=== PATIENT | female | born 1960 | race Caucasian/White ===

== ENCOUNTER 2022-08-26 14:57 | Inpatient (IN) ==
[2022-08-26] MEDS ORDERED: KETOROLAC TROMETHAMINE 15 MG/ML VIAL IV STA (16:24)
[2022-08-26] MEDS ORDERED: SODIUM CHLORIDE 0.9% 500 ML IV STA (16:24)
[2022-08-26] MEDS ORDERED: MoRPHine SULFATE 4 MG/ML 1 ML CARP\\VIAL IV STA ×2 (16:24→18:52)
[2022-08-26] MEDS ORDERED: LIDOCAINE 5% 1 PATCH TD SCH (16:30)
--- NOTE | 2022-08-26 16:31 | Emergency Department Note ---
Impression & Plan Pathological fracture of rib of left side, Acute hyponatremia, Acute hypokalemia, Hypercalcemia, Lesion of left lung, Lesion of thoracic vertebra ED Provider Note CHIEF COMPLAINT: Back and left chest/flank pain HISTORY OF PRESENTING ILLNESS: This is a 61-year-old female who presents to the emergency department by private vehicle with her with complaint of middle back pain radiating to her left ribs and chest and down her abdomen and flank. Patient states she has been having issues with the back pain for about 2 years. She had surgery on her back last year in January to remove calcifications, which initially seem to help the problem, but then states the pain started to get worse in the fall. She was then referred to see pain management, she saw them on 08/15/2022 and received a nerve block which she states has not helped at all. She notes that the pain has been getting progressively worse over the past few days and today it was severe and unmanageable, she rates the pain 10/10. She takes Robaxin, gabapentin, and tramadol to manage her pain, and this has not been providing any relief. She notes that the pain radiates around the side of her left ribs into her chest and also down her abdomen and notes that her abdomen is tender. She has had associated nausea and is having difficulty eating because of this. Also notes significant weight loss over past few months. She has not vomited. She denies shortness of breath, palpitations, dizziness or syncope. She denies any numbness/tingling or weakness of the extremities. She denies any bowel or bladder dysfunction. REVIEW OF SYSTEMS: A complete 10 point review of systems was reviewed with the patient with pertinent positives and negatives as per history of present illness. All else were negative. PAST MEDICAL HISTORY: History of thoracic back surgery SOCIAL HISTORY: Lives at home with , she is a current everyday smoker ALLERGIES: No known allergies PHYSICAL EXAM: CONSTITUTIONAL: Believe pleasant and cooperative. Nontoxic appearing and in no acute distress, but appears uncomfortable from pain, lying on her right side in the stretcher. HEENT: Normocephalic, atraumatic. NECK: Supple, full active range of motion without discomfort. No midline tenderness to palpation of the cervical spine. RESPIRATORY: Scattered occasional expiratory wheezing, lungs otherwise clear with no crackles, rhonchi or stridor. Nonlabored breathing. Equal expansion bilaterally. CHEST WALL: Tenderness to palpation throughout the left anterior and lateral chest wall, no ecchymosis, erythema, swelling, rash, or palpable crepitus. CARDIOVASCULAR: Regular rate and rhythm with no murmurs, rubs or gallops. Normal peripheral perfusion. No edema. GASTROINTESTINAL: Tender to palpation throughout the left flank and abdomen, soft and nondistended. No rebound tenderness or guarding. Bowel sounds present in all quadrants. BACK: There is midline tenderness to palpation throughout the mid thoracic spine with left-sided paraspinous muscles throughout the thoracic region and lateral left-sided chest wall tenderness. No midline tenderness to palpation of the lumbar spine and no paraspinous muscle tenderness of the lumbar region. Negative straight leg raise bilaterally. MUSCULOSKELETAL: Full range of motion of all joints without discomfort. INTEGUMENTARY: No rash or other significant dermatologic conditions noted. NEUROLOGIC: Alert and oriented X 4 with normal affect. Normal sensation to light and sharp touch. Deep tendon reflexes 2+ in the lower extremities. Dorsalis pedis pulse 2+ bilaterally. Strength 5/5 and equal in the bilateral lower extremities, dorsiflexion and plantarflexion intact and equal bilaterally. ED COURSE AND MEDICAL DECISION MAKING: CC: Patient presenting with complaint of back and left flank pain DIFFERENTIAL DIAGNOSIS: Includes, but not limited to vertebral fracture, subluxation, disc herniation, discitis, mass or mass effect, spinal cord compression, radiculopathy, costochondritis, rib fracture, pneumothorax, pulmonary embolism, acute coronary syndrome, ureteral stone, UTI, pyelonephritis, diverticulitis, pancreatitis, small bowel obstruction, among others. INTERPRETATION OF LABS: Leukocytosis, no anemia, elevated platelets, hyponatremia, hypokalemia, hypochloremia, slightly elevated anion gap, hypercalcemia, hypermagnesemia, normal renal function, normal liver enzymes and lipase. Troponin is mildly elevated. Coagulation factors within normal limits. COVID-negative. EKG INTERPRETATION: 08/26/2022 1642: Indication was chest pain. Shows sinus tachycardia with a rate of 104 bpm, prolonged QT, no ectopy, mild ST depression noted in leads V3, V4, and V5 which appear new when compared to previous EKG from 03/26/2019 by my interpretation. 08/26/2022 1928: Indication was chest pain, abnormal EKG (repeat). Shows normal sinus rhythm with a rate of 88 bpm, prolonged QT, no ectopy, interval improvement/resolution of ST depression noted on previous EKG today by my interpretation. MEDICATION RECONCILIATION: I attest that I have personally reviewed the patient's current medication list. INITIAL VITAL SIGNS REVIEW: I reviewed the patient's initial vital signs and interpret them as follows: T: Afebrile; BP: Normotensive; HR: Mildly tachycard ic; RR: Within normal limits; Pulse Ox: Within normal limits on room air. MDM SUMMARY: Patient was evaluated at bedside, history and physical exam performed. Patient is alert and oriented, in no acute distress, but appears uncomfortable from pain, resting in the stretcher. She is afebrile and nontoxic-appearing, but is noted to be mildly tachycardic on initial vital signs. There is tenderness to palpation in the mid thoracic spine and left lateral chest wall extending into the left flank and abdomen. No acute abdomen. Neurovascularly intact with no deficits noted. Cardiac monitoring: An order was placed for continuous cardiac monitoring. The monitor shows a rate in the 90s with normal sinus rhythm. EKG reviewed as above noting ST depression which appears to be acute. No ST elevation. Orders were placed for labs, including troponin, IV fluid bolus for hydration, IV morphine and Toradol for pain, lidocaine patch, urinalysis, chest x-ray, CTA chest with CT abdomen/pelvis and CT thoracic spine. Patient discussed with Dr. Duran, who agrees with my assessment, plan, and disposition. Labs and imaging reviewed as above, labs notable for leukocytosis which is of unclear etiology, the patient has not had a fever. Orders for blood cultures added, will hold off on antibiotics for now. Labs also notable for several electrolyte abnormalities, including hyponatremia (129) hypokalemia (2.4) and hyperkalemia (10.4) 20 mEq of IV potassium was ordered for initial potassium repletion, as well as 1 g IV magnesium. Magnesium level is pending. Magnesium level reviewed and was noted to be slightly above normal, the magnesium IV was stopped at this time, the patient received about half the dose. EKG changes above and a mildly elevated troponin are noted, which I suspect may be secondary to the hypokalemia, this appeared to be improved on repeat evaluation as the ST depression appears improved on repeat EKG and repeat troponin is decreasing after some repletion. CT imaging demonstrates a spiculated 1.5 cm left lung apex nodule suspicious for primary lung malignancy with additional findings of mediastinal and bilateral hilar lymphadenopathy, multiple skeletal lesions, including T8 vertebra and pathologic fractures of the left sixth and seventh ribs. No pulmonary embolism seen. I spoke on the phone with Dr. Santos, [facility] hospitalist, who agreed to evaluate the patient for admission. Patient reassessed multiple times throughout ED stay, she has remained hemodynamically stable, tachycardia is improved and her pain is also improved after pain medication. I spent several minutes at bedside updating the patient and her regarding findings on work-up today, specifically findings on CT concerning for malignancy and metastasis. All questions were answered to the best of my ability at this time. I discussed admission with the patient and her and they were agreeable to this plan. The patient was stable at the time of admission. The chart was completed utilizing [employer] voice recognition software. Grammatical errors, random word insertions, pronoun errors, and incomplete sentences are an occasional consequence of this system due to software limitations, ambient noise, and hardware issues. Any formal questions or concerns about the content, text, or information contained within the body of this dictation should be directly addressed to the nurse practitioner for clarification. Past Med/Surg History Social History Smoking Status: Current every day smoker Tobacco Type: Cigarettes Preferred Language: Serbian Feels Safe at Home: Yes Allergies Allergies Allergy/AdvReac Type Severity Reaction Status Date / Time No Known Allergies Allergy Unverified 08/26/22 20:37 Home Meds Home Medications Medication Instructions Recorded Confirmed citalopram 40 mg tablet (Celexa) 40 mg PO QAM 12/19/19 08/26/22 desloratadine 5 mg tablet 5 mg PO QAM 12/19/19 08/26/22 (Clarinex) gabapentin 300 mg capsule 300 mg PO UD 08/26/22 08/26/22 lisinopril 10 mg tablet 10 mg PO QAM 08/26/22 08/26/22 methocarbamol 500 mg tablet 1,000 mg PO Q6 PRN muscle 08/26/22 08/26/22 spasm/discomfort/tension omeprazole 40 mg capsule,delayed 40 mg PO DAILYBB 08/26/22 08/26/22 release tramadol 50 mg tablet 50 - 100 mg PO Q8 PRN pain,severe 08/26/22 08/26/22 Results & Data (ED) Vital Signs Vital Signs - 24 hr 08/26/22 15:04 Temperature 36.6 C Temperature Source Temporal Artery Scan Pulse Rate 116 H Respiratory Rate 18 Respiratory Effort / Characteristics Non-Labored Spontaneous Respiratory Depth Normal Respiratory Pattern Regular Blood Pressure 101/60 Blood Pressure Mean 73 Blood Pressure Position Sitting Pulse Oximetry 98 Oxygen Delivery Method Room Air Sepsis Recent Fever Within 48 Hours No Sepsis New/Unexplained Change in Mental Status No Sepsis Action Taken by Nursing No Action Required Laboratory Data 08/26/22 16:56 08/26/22 16:56 Lab Results 08/26/22 08/26/22 08/26/22 Range/Units 16:56 16:56 16:56 WBC 18.53 H (4.8-10.8) K/ul RBC 4.83 (4.20-5.40) M/uL Hgb 16.8 H (12.0-16.0) g/dl Hct 46.4 (37.0-47.0) % MCV 96.1 (80.0-100.0) fL MCH 34.8 H (25.0-34.0) pg MCHC 36.2 H (32.0-36.0) g/dL RDW Std Deviation 45.1 (36.4-46.3) fL RDW Coeff of Riana 12.5 (11.5-14.5) % Plt Count 474 H (130-400) K/uL MPV 9.8 (9.4-12.4) fL Immature Gran % (Auto) 0.8 % Neut % (Auto) 85.1 % Lymph % (Auto) 5.7 % [place] % (Auto) 7.9 % Eos % (Auto) 0.1 % Baso % (Auto) 0.4 % Neut # (Auto) 15.78 H (1.40-6.50) K/uL Lymph # (Auto) 1.05 L (1.2-3.4) K/uL [place] # (Auto) 1.46 H (0.11-0.59) K/uL Eos # (Auto) 0.01 (0-0.50) K/uL Baso # (Auto) 0.08 (0-0.2) K/uL Immature Gran # (Auto) 0.15 (0.01-0.20) K/uL PT 9.9 (9.0-12.0) Seconds INR 0.9 (0.9-1.1) APTT 27.2 (21.0-31.0) Seconds PTT Ratio 1.0 Sodium 129 L (136-145) mmol/L Potassium 2.4 L* (3.5-5.1) mmol/L Chloride 97 L (98-107) mmol/L Carbon Dioxide 19 L (21-32) mmol/L Anion Gap 13 H (3-11) BUN 10 (6-23) mg/dl Creatinine 0.88 (0.6-1.2) mg/dl Est Cr Clr Drug Dosing Not Reportable Est GFR ( Amer) 81.6 ml/min Est GFR (Non-Af Amer) 70.4 ml/min BUN/Creatinine Ratio 11.4 (10-20) Glucose 113 H (70-99(Fasting)) mg/dl Calcium 10.4 H (8.5-10.1) mg/dl Magnesium 2.5 H (1.7-2.4) mg/dl Total Bilirubin 0.6 (0.2-1.0) mg/dl AST 25 (13-39) U/L ALT 21 (7-52) U/L Alkaline Phosphatase 104 (34-104) U/L Troponin I High Sens 21.9 H (0-14) pg/ml Total Protein 8.4 H (6.0-8.3) gm/dl Albumin 3.9 (3.4-5.0) gm/dl Globulin 4.5 H (2.5-4.0) gm/dl Albumin/Globulin Ratio 0.9 (0.9-2) Lipase 59 (11-82) U/L SARS-CoV-2, RNA, NAAT (NEGATIVE) 08/26/22 08/26/22 Range/Units 18:56 19:59 WBC (4.8-10.8) K/ul RBC (4.20-5.40) M/uL Hgb (12.0-16.0) g/dl Hct (37.0-47.0) % MCV (80.0-100.0) fL MCH (25.0-34.0) pg MCHC (32.0-36.0) g/dL RDW Std Deviation (36.4-46.3) fL RDW Coeff of Riana (11.5-14.5) % Plt Count (130-400) K/uL MPV (9.4-12.4) fL Immature Gran % (Auto) % Neut % (Auto) % Lymph % (Auto) % [place] % (Auto) % Eos % (Auto) % Baso % (Auto) % Neut # (Auto) (1.40-6.50) K/uL Lymph # (Auto) (1.2-3.4) K/uL [place] # (Auto) (0.11-0.59) K/uL Eos # (Auto) (0-0.50) K/uL Baso # (Auto) (0-0.2) K/uL Immature Gran # (Auto) (0.01-0.20) K/uL PT (9.0-12.0) Seconds INR (0.9-1.1) APTT (21.0-31.0) Seconds PTT Ratio Sodium (136-145) mmol/L Potassium (3.5-5.1) mmol/L Chloride (98-107) mmol/L Carbon Dioxide (21-32) mmol/L Anion Gap (3-11) BUN (6-23) mg/dl Creatinine (0.6-1.2) mg/dl Est Cr Clr Drug Dosing Est GFR ( Amer) ml/min Est GFR (Non-Af Amer) ml/min BUN/Creatinine Ratio (10-20) Glucose (70-99(Fasting)) mg/dl Calcium (8.5-10.1) mg/dl Magnesium (1.7-2.4) mg/dl Total Bilirubin (0.2-1.0) mg/dl AST (13-39) U/L ALT (7-52) U/L Alkaline Phosphatase (34-104) U/L Troponin I High Sens 16.9 H D (0-14) pg/ml Total Protein (6.0-8.3) gm/dl Albumin (3.4-5.0) gm/dl Globulin (2.5-4.0) gm/dl Albumin/Globulin Ratio (0.9-2) Lipase (11-82) U/L SARS-CoV-2, RNA, NAAT NEGATIVE (NEGATIVE) Administered Medications Potassium Chloride (K Juan / Wtr) 10 meq in 100 mls @ 100 mls/hr IV Q1H MEGHAN Stop: 08/27/22 01:29 Last Admin: 08/26/22 23:18 Dose: 100 mls/hr Documented By: Infusion: 08/26/22 23:17 Dose: 0 mls/hr Documented By: Admin: 08/26/22 22:04 Dose: 100 mls/hr Documented By: JOAQUIN Lidocaine (Lidocaine 5% 1 Patch) 1 patch TD QAM MEGHAN Stop: 09/25/22 16:29 Last Admin: 08/26/22 16:59 Dose: 1 patch Documented By: OLAF Discontinued Medications Hydromorphone HCl (Hydromorphone Inj 0.5 Mg/0.5 Ml Syr) 0.5 mg IV NOW STA Stop: 08/26/22 23:58 Last Admin: 08/27/22 00:04 Dose: 0.5 mg Documented By: JOAQUIN Sodium Chloride (Nss) 500 mls @ 999 mls/hr IV .Q31M STA Stop: 08/26/22 16:54 Last Infusion: 08/26/22 17:50 Dose: 0 mls/hr Documented By: Admin: 08/26/22 16:59 Dose: 999 mls/hr Documented By: OLAF Potassium Chloride (K Juan / Wtr) 10 meq in 100 mls @ 100 mls/hr IV Q1H MEGHAN; Protocol Stop: 08/26/22 19:59 Last Infusion: 08/26/22 20:57 Dose: 0 mls/hr Documented By: Admin: 08/26/22 19:59 Dose: 100 mls/hr Documented By: Infusion: 08/26/22 19:41 Dose: 100 mls/hr Documented By: Admin: 08/26/22 18:41 Dose: 100 mls/hr Documented By: OLAF Magnesium Sulfate/Dextrose (Magnesium Sulfate / D5w) 1 gm in 100 mls @ 100 mls/hr IV NOW STA Stop: 08/26/22 18:50 Last Infusion: 08/26/22 20:57 Dose: 0 mls/hr Documented By: Infusion: 08/26/22 19:34 Dose: 0 mls/hr Documented By: Admin: 08/26/22 18:41 Dose: 100 mls/hr Documented By: OLAF Thiamine HCl 100 mg/ Syringe 10 mls @ 2 mls/min IV NOW STA Stop: 08/26/22 22:08 Last Admin: 08/26/22 22:31 Dose: 2 mls/min Documented By: JOAQUIN Dexamethasone (Decadron) 2 mls @ 1 mls/min IV ONE STA Stop: 08/26/22 22:16 Last Admin: 08/26/22 23:17 Dose: 1 mls/min Documented By: JOAQUIN Ioversol (Optiray 320 500ml) 112 ml IV ONCE ONE Stop: 08/26/22 18:42 Last Admin: 08/26/22 18:41 Dose: 112 ml Documented By: ADAM Ketorolac Tromethamine (Ketorolac Tromethamine 15 Mg/Ml Vial) 15 mg IV NOW STA Stop: 08/26/22 16:25 Last Admin: 08/26/22 16:59 Dose: 15 mg Documented By: OLAF Morphine Sulfate (Morphine Sulfate 4 Mg/Ml 1 Ml Carp\Vial) 4 mg IV NOW STA Stop: 08/26/22 16:25 Last Admin: 08/26/22 16:59 Dose: 4 mg Documented By: OLAF Morphine Sulfate (Morphine Sulfate 4 Mg/Ml 1 Ml Carp\Vial) 4 mg IV NOW STA Stop: 08/26/22 18:53 Last Admin: 08/26/22 19:39 Dose: 4 mg Documented By: JOAQUIN Imaging Data Radiologist's Impression: Chest X-Ray 08/26/22 16:25 SINGLE VIEW CHEST CLINICAL HISTORY: Atypical chest pain. Left-sided chest wall pain. FINDINGS: An AP, portable, upright chest radiograph is obtained. No prior studies are available for comparison at the time of dictation. The examination is degraded by portable technique and patient rotation. The heart is top normal for projection noting atherosclerotic calcification of the thoracic aorta. Nonspecific interstitial thickening is likely chronic. There is bibasilar scarring/atelectasis. The lungs and pleural spaces are otherwise clear. No pneu mothorax is seen. The skeletal structures are osteopenic. There are acute appearing left-sided rib fractures (likely at least the 6th and 7th ribs). IMPRESSION: 1. No acute cardiopulmonary abnormality. 2. There are several acute appearing left-sided rib fractures. Correlate for point tenderness. ACT 112: Negative or not required by law. Electronically signed by: Nathan Simeon M.D. 08/26/2022 5:07 PM Chest CTA 08/26/22 16:26 CT ANGIOGRAPHY OF THE CHEST, PULMONARY EMBOLUS PROTOCOL CLINICAL HISTORY: Left rib/chest pain, eval PE COMPARISON STUDY: Chest radiograph performed earlier today. TECHNIQUE: Following IV administration of Optiray, helical axial images of the c hest were obtained utilizing the pulmonary embolus protocol. Maximal intensity projections and sagittal and coronal reformats were viewed on an independent 3D workstation. IV contrast was administered without complication. Automated exposure control was utilized for the study. A dose lowering technique was utilized adhering to the principles of ALARA. FINDINGS: No pulmonary emboli are identified. There is no thoracic aortic dissection. There is a prominent left supraclavicular lymph node on image 268 of 303 that measures 0.9 x 0.8 cm. There is bilateral hilar and mediastinal lymphadenopathy. Index subcarinal node measures 2.6 x 1.9 cm. Index right hilar node measures 1.6 x 1.5 cm. A 1.1 cm nodular density within the superior right breast is present this may represent breast tissue. There is no axillary lymphadenopathy. The size of the heart is normal. There is no pericardial effusion. There are mildly enlarged cardiophrenic angle nodes as well as mildly enlarged retrocrural lymph nodes. No pneumothorax or pleural effusion is present. There is no consolidation to suggest pneumonia. There is moderate emphysema. There is a spiculated 1.5 cm left lung apex nodule on image 266 of 303. A 1.4 x 1.1 cm right lower lobe lesion with occlusion of the associated segmental bronchus could reflect an enlarged lymph node or a pulmonary nodule. Multiple skeletal lesions with soft tissue extension are noted. These include lesions of the left fifth, sixth and seventh ribs with associated pathologic fractures of the sixth and seventh ribs. Multiple lytic lesions within the T8 vertebral body are noted with associated sclerosis. There is slight loss of height of the T8 vertebral body without well-defined fracture. There is suspected mild epidural extension of tumor which is suboptimally assessed by either slight retropulsion at the level of the superior endplate. Associated paravertebral soft tissue extension is noted. Abdomen and pelvis CT will be reported separately. IMPRESSION: 1. No pulmonary emboli identified. 2. Mediastinal and bilateral hilar lymphadenopathy, as described above. In addition multiple skeletal lesions, including lesions within the T8 vertebra with mild epidural extension of tumor and paravertebral extension, as described above. Associated pathologic fractures of left sixth and seventh ribs. The findings are consistent with a neoplastic etiology and favor metastatic disease. Lymphoma is within the differential but considered less likely. 3. Spiculated 1.5 cm left lung apex nodule. This is suspicious for a primary lung malignancy although its unclear if the skeletal and batsheva metastases are related to this lesion. Pulmonary consultation is recommended. 4. Emphysema. 5. Indeterminate but low suspicion right breast nodule. ACT 112: Positive. There are findings on this exam that require communication between the performing entity and the patient following Patient Test Result Information Act ([place] Act 112) guidelines. Electronically signed by: Matt Marsh M.D. 08/26/2022 7:00 PM Abdomen/Pelvis CT 08/26/22 16:31 CT OF THE ABDOMEN AND PELVIS WITH CONTRAST CLINICAL HISTORY: Left flank/abdomen pain. COMPARISON STUDY: None. TECHNIQUE: Following IV administration of 112 mL of Optiray, axial images of the abdomen and pelvis were obtained from the lung bases to the proximal femurs. Images were reviewed in the axial, sagittal, and coronal planes. IV contrast was administered without complication. Automated exposure control was utilized for the study. A dose lowering technique was utilized adhering to the principles of ALARA. FINDINGS: Chest CT will be reported separately. This better depicts thoracic lymphadenopathy as well as suspected pleural metastasis within the left hemithorax with associated bony involvement. No pneumatosis, free air or portal venous gas is present. There is hepatic steatosis. No suspicious hepatic lesions are present. There is no biliary or pancreatic ductal dilatation. The spleen, adrenal glands and pancreas are unremarkable. Bilateral renal calculi measure up to 5 mm. There are no ureteral calculi. There is no hydronephrosis. There is no evidence for a bowel obstruction. Sigmoid diverticulosis is present. There is no evidence for acute diverticulitis. There is no abdominal or pelvic lymphadenopathy. Major vasculature is patent. No acute fracture or suspicious lesion is identified within the pelvis, hips or lumbar spine. IMPRESSION: 1. No acute process within the abdomen or pelvis. 2. Thoracic lymphadenopathy and pleural metastases within the left hemithorax with associated bony involvement better depicted on the chest CT. Please see that report for further description. 3. Bilateral nephrolithiasis. No ureteral calculi or hydronephrosis. ACT 112: Negative or not required by law. Electronically signed by: Matt Marsh M.D. 08/26/2022 7:[address] 08/26/22 16:38 CT thoracic spine w con CLINICAL HISTORY: back pain, recent nerve block COMPARISON STUDY: No previous studies for comparison. TECHNIQUE: Axial images of the thoracic spine were obtained. Sagittal and coronal reconstructions were viewed. Automated exposure control was utilized for the study. A dose lowering technique was utilized adhering to the principles of ALARA. FINDINGS: Please note that the chest CT will be reported separately. There is emphysema. A spiculated 1.5 cm left apical pulmonary nodule is present. Mediastinal and bilateral hilar lymphadenopathy is noted. Pleural/rib lesions are noted within the left hemithorax. Lytic lesions within T8 vertebral body are noted with mild loss of height and is associated sclerosis. There is mild retropulsion at the level of the superior endplate. In addition, there is epidural extension of tumor at the T8 level. This is suboptimally assessed by CT technique but appears to result in mild central canal stenosis. No additional sites of epidural extension are noted. Associated soft tissue extension is present. Severe narrowing of the left T8-T9 neural foramen is noted. There is also suspected narrowing of the left T7-T8 neural foramen. IMPRESSION: Multiple lytic lesions within the T8 vertebral body with mild loss of vertebral body height. Although suboptimally assessed by CT, mild epidural extension of tumor which results in suspected mild central canal stenosis. Associated paravertebral tumor and left-sided neural foraminal narrowing, as above. Findings are highly suggestive of metastatic disease. Although not definitive, the potential primary is within the left lung apex given multiple suspected batsheva and left pleural metastases. ACT 112: Negative or not required by law. Electronically signed by: Matt Marsh M.D. 08/26/2022 7:10 PM Discharge Plan Visit Data Chief Complaint: Back Injury/Pain Stated Complaint: PAIN IN BACK AND RIB CAGE - NERVE ISSUES ED Provider: Jesse Estrada ED Midlevel Provider: Vianey Mon Discharge Problem: Pathological fracture of rib of left side, Acute hyponatremia, Acute hypokalemia, Hypercalcemia, Lesion of left lung, Lesion of thoracic vertebra Forms Stand Alone Forms: Replaced By [facility] Prescriptions Prescriptions: No Action citalopram [Celexa] 40 mg tablet 40 mg PO QAM desloratadine [Clarinex] 5 mg tablet 5 mg PO QAM tramadol 50 mg tablet 50 - 100 mg PO Q8 PRN (Reason: pain,severe) methocarbamol 500 mg tablet 1,000 mg PO Q6 PRN (Reason: muscle spasm/discomfort/tension) gabapentin 300 mg capsule 300 mg PO UD Rx Instructions: take 1 capsule in the morning & afternoon, take 3 capsules at bedtime omeprazole 40 mg capsule,delayed release(DR/EC) 40 mg PO DAILYBB lisinopril 10 mg tablet 10 mg PO QAM Referrals Referrals: Gabino Johnson MD [Primary Care Provider] -
--- NOTE | 2022-08-26 17:09 | XRay Report ---
SINGLE VIEW CHEST CLINICAL HISTORY: Atypical chest pain. Left-sided chest wall pain. FINDINGS: An AP, portable, upright chest radiograph is obtained. No prior studies are available for c omparison at the time of dictation. The examination is degraded by portable technique and patient rot ation. The heart is top normal for projection noting atherosclerotic calcification of the thoracic ao rta. Nonspecific interstitial thickening is likely chronic. There is bibasilar scarring/atelectasis. The lungs and pleural spaces are otherwise clear. No pneumothorax is seen. The skeletal structures ar e osteopenic. There are acute appearing left-sided rib fractures (likely at least the 6th and 7th rib s). IMPRESSION: 1. No acute cardiopulmonary abnormality. 2. There are several acute appearing left-sided rib fractures. Correlate for point tenderness. ACT 112: Negative or not required by law. Electronically signed by: Nathan Simeon M.D. 08/26/2022 5:07 PM
[2022-08-26 17:23] LABS: Basophils # (auto) 0.08 K/uL (0-0.2); Basophils % (auto) 0.4 %; Eosinophils # (auto) 0.01 K/uL (0-0.50); Eosinophils % (auto) 0.1 %; Hematocrit (blood only) 46.4 % (37.0-47.0); Hemoglobin 16.8 g/dl (12.0-16.0); Immature Granulocytes # (auto) 0.15 K/uL (0.01-0.20); Immature Granulocytes % (auto) 0.8 %; Lymphocytes # (auto) 1.05 K/uL (1.2-3.4); Lymphocytes % (auto) 5.7 %; Mean Corpuscular Hemoglobin 34.8 pg (25.0-34.0); Mean Corpuscular Hgb Conc 36.2 g/dL (32.0-36.0); Mean Corpuscular Volume 96.1 fL (80.0-100.0); Mean Platelet Volume 9.8 fL (9.4-12.4); Monocytes # (auto) 1.46 K/uL (0.11-0.59); Monocytes % (auto) 7.9 %; Neutrophils # (auto) 15.78 K/uL (1.40-6.50); Neutrophils % (auto) 85.1 %; Platelet Count 474 K/uL (130-400); RDW Coefficient of Variation 12.5 % (11.5-14.5); RDW Standard Deviation 45.1 fL (36.4-46.3); Red Blood Count 4.83 M/uL (4.20-5.40); White Blood Count 18.53 K/ul (4.8-10.8)
[2022-08-26 17:45] LABS: Alanine Aminotransferase 21 U/L (7-52); Albumin Globulin Ratio 0.9 (0.9-2); Albumin Level 3.9 gm/dl (3.4-5.0); Alkaline Phosphatase 104 U/L (34-104); Anion Gap 13 (3-11); Aspartate Aminotransferase 25 U/L (13-39); BUN Creatinine Ratio 11.4 (10-20); Bilirubin,Total 0.6 mg/dl (0.2-1.0); Blood Urea Nitrogen 10 mg/dl (6-23); Calcium 10.4 mg/dl (8.5-10.1); Carbon Dioxide 19 mmol/L (21-32); Chloride 97 mmol/L (98-107); Est GFR (African American) 81.6 ml/min; Est GFR (Non-African American) 70.4 ml/min; Globulin 4.5 gm/dl (2.5-4.0); Glucose 113 mg/dl (70-99(Fasting)); Lipase 59 U/L (11-82); Potassium 2.4 mmol/L (3.5-5.1); Sodium 129 mmol/L (136-145); Total Protein 8.4 gm/dl (6.0-8.3)
[2022-08-26] MEDS ORDERED: MAGNESIUM SULFATE / D5W 1 GM/100 ML BAG IV STA (17:51)
[2022-08-26 18:06] LABS: INR 0.9 (0.9-1.1); Partial Thromboplastin Time 27.2 Seconds (21.0-31.0); Prothrombin Time 9.9 Seconds (9.0-12.0)
[2022-08-26 18:37] LABS: Troponin I High Sensitivity 21.9 pg/ml (0-14)
[2022-08-26] MEDS: POTASSIUM CHLORIDE / WTR 10 MEQ/100 ML PLCT IV SCH ×4 (18:41→23:18)
[2022-08-26] MEDS ORDERED: OPTIRAY 320 500ml IV ONE (18:41)
--- NOTE | 2022-08-26 19:03 | CT Scan Report ---
CT ANGIOGRAPHY OF THE CHEST, PULMONARY EMBOLUS PROTOCOL CLINICAL HISTORY: Left rib/chest pain, eval PE COMPARISON STUDY: Chest radiograph performed earlier today. TECHNIQUE: Following IV administration of Optiray, helical axial images of the chest were obtained ut ilizing the pulmonary embolus protocol. Maximal intensity projections and sagittal and coronal refor mats were viewed on an independent 3D workstation. IV contrast was administered without complication . Automated exposure control was utilized for the study. A dose lowering technique was utilized adh ering to the principles of ALARA. FINDINGS: No pulmonary emboli are identified. There is no thoracic aortic dissection. There is a pro minent left supraclavicular lymph node on image 268 of 303 that measures 0.9 x 0.8 cm. There is bilat eral hilar and mediastinal lymphadenopathy. Index subcarinal node measures 2.6 x 1.9 cm. Index right hilar node measures 1.6 x 1.5 cm. A 1.1 cm nodular density within the superior right breast is presen t this may represent breast tissue. There is no axillary lymphadenopathy. The size of the heart is no rmal. There is no pericardial effusion. There are mildly enlarged cardiophrenic angle nodes as well a s mildly enlarged retrocrural lymph nodes. No pneumothorax or pleural effusion is present. There is n o consolidation to suggest pneumonia. There is moderate emphysema. There is a spiculated 1.5 cm left lung apex nodule on image 266 of 303. A 1.4 x 1.1 cm right lower lobe lesion with occlusion of the as sociated segmental bronchus could reflect an enlarged lymph node or a pulmonary nodule. Multiple skel etal lesions with soft tissue extension are noted. These include lesions of the left fifth, sixth and seventh ribs with associated pathologic fractures of the sixth and seventh ribs. Multiple lytic lesi ons within the T8 vertebral body are noted with associated sclerosis. There is slight loss of height of the T8 vertebral body without well-defined fracture. There is suspected mild epidural extension of tumor which is suboptimally assessed by either slight retropulsion at the level of the superior endp late. Associated paravertebral soft tissue extension is noted. Abdomen and pelvis CT will be reported separately. IMPRESSION: 1. No pulmonary emboli identified. 2. Mediastinal and bilateral hilar lymphadenopathy, as described above. In addition multiple skeletal lesions, including lesions within the T8 vertebra with mild epidural extension of tumor and paravert ebral extension, as described above. Associated pathologic fractures of left sixth and seventh ribs. The findings are consistent with a neoplastic etiology and favor metastatic disease. Lymphoma is with in the differential but considered less likely. 3. Spiculated 1.5 cm left lung apex nodule. This is suspicious for a primary lung malignancy although its unclear if the skeletal and batsheva metastases are related to this lesion. Pulmonary consultation is recommended. 4. Emphysema. 5. Indeterminate but low suspicion right breast nodule. ACT 112: Positive. There are findings on this exam that require communication between the performing entity and the patient following Patient Test Result Information Act ([place] Act 112) guidelines. Electronically signed by: Matt Marsh M.D. 08/26/2022 7:00 PM
[2022-08-26 19:11] LABS: Magnesium 2.5 mg/dl (1.7-2.4)
--- NOTE | 2022-08-26 19:12 | CT Scan Report ---
CT thoracic spine w con CLINICAL HISTORY: back pain, recent nerve block COMPARISON STUDY: No previous studies for comparison. TECHNIQUE: Axial images of the thoracic spine were obtained. Sagittal and coronal reconstructions wer e viewed. Automated exposure control was utilized for the study. A dose lowering technique was utili zed adhering to the principles of ALARA. FINDINGS: Please note that the chest CT will be reported separately. There is emphysema. A spiculated 1.5 cm left apical pulmonary nodule is present. Mediastinal and bilateral hilar lymphadenopathy is n oted. Pleural/rib lesions are noted within the left hemithorax. Lytic lesions within T8 vertebral bod y are noted with mild loss of height and is associated sclerosis. There is mild retropulsion at the l evel of the superior endplate. In addition, there is epidural extension of tumor at the T8 level. Thi s is suboptimally assessed by CT technique but appears to result in mild central canal stenosis. No a dditional sites of epidural extension are noted. Associated soft tissue extension is present. Severe narrowing of the left T8-T9 neural foramen is noted. There is also suspected narrowing of the left T7 -T8 neural foramen. IMPRESSION: Multiple lytic lesions within the T8 vertebral body with mild loss of vertebral body height. Although suboptimally assessed by CT, mild epidural extension of tumor which results in suspected mild centra l canal stenosis. Associated paravertebral tumor and left-sided neural foraminal narrowing, as above. Findings are highly suggestive of metastatic disease. Although not definitive, the potential primary is within the left lung apex given multiple suspected batsheva and left pleural metastases. ACT 112: Negative or not required by law. Electronically signed by: Matt Marsh M.D. 08/26/2022 7:10 PM
--- NOTE | 2022-08-26 19:24 | CT Scan Report ---
CT OF THE ABDOMEN AND PELVIS WITH CONTRAST CLINICAL HISTORY: Left flank/abdomen pain. COMPARISON STUDY: None. TECHNIQUE: Following IV administration of 112 mL of Optiray, axial images of the abdomen and pelvis w ere obtained from the lung bases to the proximal femurs. Images were reviewed in the axial, sagittal, and coronal planes. IV contrast was administered without complication. Automated exposure control w as utilized for the study. A dose lowering technique was utilized adhering to the principles of VILMA Suresh. FINDINGS: Chest CT will be reported separately. This better depicts thoracic lymphadenopathy as well as suspected pleural metastasis within the left hemithorax with associated bony involvement. No pneum atosis, free air or portal venous gas is present. There is hepatic steatosis. No suspicious hepatic l esions are present. There is no biliary or pancreatic ductal dilatation. The spleen, adrenal glands a nd pancreas are unremarkable. Bilateral renal calculi measure up to 5 mm. There are no ureteral calcu li. There is no hydronephrosis. There is no evidence for a bowel obstruction. Sigmoid diverticulosis is present. There is no evidence for acute diverticulitis. There is no abdominal or pelvic lymphadeno bee. Major vasculature is patent. No acute fracture or suspicious lesion is identified within the p deon, hips or lumbar spine. IMPRESSION: 1. No acute process within the abdomen or pelvis. 2. Thoracic lymphadenopathy and pleural metastases within the left hemithorax with associated bony in volvement better depicted on the chest CT. Please see that report for further description. 3. Bilateral nephrolithiasis. No ureteral calculi or hydronephrosis. ACT 112: Negative or not required by law. Electronically signed by: Matt Marsh M.D. 08/26/2022 7:22 PM
[2022-08-26] MEDS ORDERED: THIAMINE HCL 100 MG in SYRINGE 9 ML IV STA (22:04)
[2022-08-26] MEDS ORDERED: DEXAMETHASONE IV STA (22:15)
[2022-08-26] MEDS ORDERED: HYDROmorphone INJ 0.5 MG/0.5 ML SYR IV STA (23:57)
[2022-08-27] MEDS ORDERED: oxyCODONE HCL IR 5 MG TAB (IMMEDIATE RELEASE) PO PRN (00:55)
[2022-08-27] MEDS ORDERED: METHOCARBAMOL 500 MG TABLET PO PRN (00:55)
[2022-08-27] MEDS ORDERED: NITROGLYCERIN SL 0.4 MG/TAB TAB SL PRN (00:55)
[2022-08-27] MEDS ORDERED: POTASSIUM CHLORIDE CRTAB 20 MEQ TABCR PO STA (00:55)
[2022-08-27] MEDS ORDERED: POLYETHYLENE (MIRALAX) 17 GM PACK PO PRN (00:55)
[2022-08-27] MEDS: D5W AND NSS 1,000 ML IV SCH ×2 (01:22→15:32)
[2022-08-27] MEDS: POTASSIUM CHLORIDE / WTR 10 MEQ/100 ML PLCT IV SCH ×5 (01:24→10:02)
[2022-08-27] MEDS: HYDROmorphone INJ 0.5 MG/0.5 ML SYR IV PRN ×2 (01:26→05:41)
--- NOTE | 2022-08-27 01:39 | History and Physical Report ---
DATE OF ADMISSION: 08/26/2022. CHIEF COMPLAINT: Severe back pain and left-sided chest pain. HISTORY OF PRESENT ILLNESS: This is a 61-year-old female with past medical history significant for allergic rhinitis, hypertension, GERD, mid low back pain, radicular pain of thoracic spine, depression, ongoing tobacco use, presents with severe back pain, radiating to left chest side and left upper abdomen. When in severe pain has nausea. Appetite is down, not eating much because of pain. Denies any shortness of breath. She smokes 1 pack of cigarettes daily. Denies any headache, no dizziness, no blurred visions, no earache, no runny nose, no sore throat, no cough, no difficulty swallowing. No diarrhea or constipation. No blood in stool or black stools. Normal bladder movements. No swelling in the legs. The patient says, in 01/2022 at [place], she had left T7-T8 endoscopic decompression but pain not improved and about one and a half week ago, she had a nerve block, but was not getting better and she was having some difficulty in ambulation because of pain. That is the reason she came here today. Hemodynamically stable. White count is 18. Sodium 129, potassium 2.4. Troponin 21.9. SARS-CoV-2 rapid test negative. ALLERGIES: No known drug allergies. PAST MEDICAL HISTORY: As mentioned above. PAST SURGICAL HISTORY: Right breast biopsy, colonoscopy, cryocautery of cervix, EGD, endoscopic decompression of spinal cord at T7-T8, injection of the lumbar, cervical and thoracic spine, ligation of oviducts. On 08/15/22, she has a paravertebral block, thoracic spine block, tonsillectomy, adenoidectomy, repair of shoulder cuff, total hysterectomy. MEDICATIONS: The patient is on Celexa 40 mg p.o. daily, Clarinex 5 mg p.o. a.m., gabapentin 300 mg as directed, lisinopril 10 mg p.o. daily, methocarbamol 1000 mg p.o. q. 6 hours p.r.n. for muscle spasms, omeprazole 40 mg p.o. daily, tramadol 50-100 mg p.o. q. 8 hours p.r.n. FAMILY HISTORY: Significant for aunt has ovarian cancer, maternal grandmother had diabetes, father has hypertension, paternal grandmother has stroke. SOCIAL HISTORY: . Smokes 1 pack a day for 30 years. Alcohol, drinks 2 glasses of whiskey daily. No drug use. REVIEW OF SYSTEMS: As per HPI. Rest of the review of systems is negative. PHYSICAL EXAMINATION: GENERAL: The patient is of moderate build, not in acute distress. VITAL SIGNS: Temperature 36.6, pulse 116, respiratory rate 18, blood pressure 101/60, oxygen 98% on room air. HEENT: Pupils equal, round and reactive to light. Oral mucosa moist. NECK: No JVD, no neck masses. CARDIOVASCULAR: S1 and S2 heard. Regular rate and rhythm. No murmur, no gallop. RESPIRATORY SYSTEM: Normal AP diameter. No accessory muscle use. No wheezing, no crackles. ABDOMEN: Soft, bowel sounds present, no distention, CENTRAL NERVOUS SYSTEM: Alert and oriented. Speech is clear. No facial droop. Obeys simple commands. Moves extremities. EXTREMITIES: No edema, no erythema. MUSCULOSKELETAL: Has tenderness in the left-sided lower rib cage and upper back spine region. LABORATORY DATA: WBC 18, hemoglobin 16.8, hematocrit 46.4, platelets 474. PT 9.9, INR 0.9, APTT 27.2. Sodium 129, potassium 2.4, chloride 97, [id number], BUN 10, creatinine 0.8, serum glucose 113, calcium 10.4, magnesium 2.5, total bilirubin 0.6, AST 25, ALT 21, alkaline phosphatase 104. Troponin I high sensitivity 21..9, lipase 59. SARS-CoV-2 rapid test negative. IMAGING: Thoracic spine CT scan with contrast Multiple lytic lesions within the T8 vertebral body with mild loss of vertebral body height. Although suboptimally assessed by CT, mild epidural extension of tumor which results in suspected mild central canal stenosis. Associated paravertebral tumor and left-sided neural foraminal narrowing, as above. Findings are highly suggestive of metastatic disease. Although not definitive, the potential primary is within the left lung apex given multiple suspected batsheva and left pleural metastases CT of the abdomen and pelvis with contrast,.1. No acute process within the abdomen or pelvis. 2. Thoracic lymphadenopathy and pleural metastases within the left hemithorax with associated bony involvement better depicted on the chest CT. Please see that report for further description. 3. Bilateral nephrolithiasis. No ureteral calculi or hydronephrosis. CTA chest, 1. No pulmonary emboli identified. 2. Mediastinal and bilateral hilar lymphadenopathy, as described above. In addition multiple skeletal lesions, including lesions within the T8 vertebra with mild epidural extension of tumor and paravertebral extension, as described above. Associated pathologic fractures of left sixth and seventh ribs. The findings are consistent with a neoplastic etiology and favor metastatic disease. Lymphoma is within the differential but considered less likely. 3. Spiculated 1.5 cm left lung apex nodule. This is suspicious for a primary lung malignancy although its unclear if the skeletal and batsheva metastases are related to this lesion. Pulmonary consultation is recommended. 4. Emphysema. 5. Indeterminate but low suspicion right breast nodule. EKG: Normal sinus rhythm, rate of 88, possible left atrial enlargement, prolonged QT at 517. Nonspecific ST-T abnormalities. ASSESSMENT AND PLAN: This is a 61-year-old female, who presents with severe back pain, going on for a year, had endoscopic decompression of thoracic spine in [place] in January and also recently had nerve block of the thoracic spine, comes with worsening pain and found to have possible metastatic disease. 1. Severe back pain, thoracic spine pain and left ribcage pain: Imaging studies show 1.5-cm left lung apex nodule, pathological fracture of the left 6th and 7th ribs, multiple skeletal lesions including lesions in the T8 vertebra with mild epidural extension of the tumor and paravertebral extension.Pain control iv dilaudid p.r.n. and oxycodone p.r.n. We will keep her n.p.o. from midnight. Pulmonary consult. We will give a dose of soulmedrol. Will get mri of spine.. May discuss with hem/onc and radiation oncology in the a.m. 2. History of hypertension: Continue lisinopril. 3. Gastroesophageal reflux disease: Continue omeprazole. 4. History of depression. We will hold Celexa for QT prolongation. We will follow the EKG for QT prolongation ,possibly from hypokalemia 5. Hypokalemia: We will replace. 6. Hyponatremia: Sodium 129 possibly siadh from malignancy, also poor oral intake. Getting D5 normal saline. We will also follow urine osmolality, serum osmolality, and urine sodium levels. If not improving, we will consult nephrology. 7. Leukocytosis Blood cultures ordered. will follow repeat labs. 8. Mild hypercalcemia follow repeat labs. 9. Mild elevation of troponin, mostly demand ischemia: We will follow the serial enzymes. 9. Ongoing tobacco abuse: Needs counseling. Nicotine patch for now. 10. Alcoholism: The patient says she drinks 2 glasses of whiskey daily, but she thinks she wont go through withdrawal. We will place on thiamine, folic acid, and IV Ativan p.r.n. for now. DVT px scds for now. If no procedure planned will place on lovenox. DISPOSITION: Closely monitor in the med tele. PT/OT prior to discharge. Social service to help with discharge planning. Level 1 full code. Job ID: [id number] MTDD
[2022-08-27 03:55] LABS: Appearance Urine Clear (Clear); Bacteria Urine Automated Negative (Negative); Bilirubin Urine Negative (Negative); Blood Urine Negative (Negative); Color Urine Yellow; Glucose Urine UA Negative (Negative); Ketones Urine Negative (Negative); Leukocyte Esterase Urine Negative (Negative); Nitrite Urine Negative (Negative); RBC Urine Automated 0-4 /hpf (0-4); Specific Gravity Urine 1.035 (1.000-1.030); Urobilinogen Urine Negative (Negative); pH Urine 7.5 (4.5-7.5)
[2022-08-27 04:07] LABS: Protein Urine Trace (Negative)
[2022-08-27] MEDS ORDERED: GADOBUTROL 65ML VIAL IV ONE (05:05)
[2022-08-27] MEDS: LORazepam 2 MG/1 ML VIAL IV PRN (06:15)
[2022-08-27] MEDS: PANTOprazole 40 MG TAB PO SCH (06:15)
[2022-08-27 07:13] LABS: Calcium 9.4 mg/dl (8.5-10.1); Creatinine Clr Calc Pharmacy 92.1 ml/min; Est GFR (African American) 115.2 ml/min; Est GFR (Non-African American) 99.4 ml/min; Magnesium 2.4 mg/dl (1.7-2.4); Potassium 3.6 mmol/L (3.5-5.1)
--- NOTE | 2022-08-27 07:15 | Pulmonary Consultation ---
Date of Consultation August 27, 2022 Assessment & Plan (1) Pathological fracture of rib of left side: (2) Multiple pulmonary nodules: (3) LAD (lymphadenopathy), mediastinal: (4) COPD with emphysema: Plan CT chest 08/26/2022 personally reviewed: Centrilobular emphysema appreciated bilaterally, left upper lobe spiculated pulmonary nodule 1.5 cm Right lower lobe 1.4 cm pulmonary nodule Subcarinal lymphadenopathy -- Multiple pulmonary nodules with mediastinal lymphadenopathy With mets to the spine and the ribs Primary seems to be lung. COVID-19 NAAT negative -- COPD with emphysema Not on any inhalers at home We will start the patient on Anoro to be used on a daily basis Plan: I was planning to do navigational bronchoscopy with EBUS today by requested not to do it today as she is overwhelmed and she does not want anything to be done today. I did explain to her that she most likely has lung cancer and we should get diagnosis as soon as possible Later the nurse did call me that the patient is agreeable being to have the procedure done on . She has been scheduled for the OR Start the patient on Anoro to be used on a daily basis Pain management defer to hospitalist Patient will benefit from MRI of the brain Case discussed with Dr. Blackman Please note the above document was generated using voice recognition software. It may contain grammatical, syntax or spelling errors.Any formal questions or concerns about the content, text or information contained within the body of this dictation should be directly addressed to the provider for clarification. History of Present Illness Attending Physician: Leon Blackman MD History of Present Illness 61-year-old female presented to the hospital with complaints of generalized pain especially in the lower back Past medical history: Depression, GERD, hypertension, active smoker Pulmonary consulted for abnormal chest CT At the time of examination patient was in distress secondary to pain She was saturating 96-97% on room air. She seems to be overwhelmed because of all the information that she was getting as well as pain. She does complain of cough especially early in the morning. Brings up clear phlegm. Denies any chest pain. No significant shortness of breath No nausea vomiting No headache, no blurry vision No dysuria, no diarrhea She has lost approximately 20 pounds in the last 3 weeks unintentionally. Social history: [id number] smoking history, current smoker History of lung cancer in brother who is also a smoker Allergies Allergy/AdvReac Type Severity Reaction Status Date / Time No Known Allergies Allergy Unverified 08/26/22 20:37 Home Medications Medication Instructions Recorded Confirmed Type citalopram 40 mg tablet (Celexa) 40 mg PO QAM 12/19/19 08/26/22 History desloratadine 5 mg tablet 5 mg PO QAM 12/19/19 08/26/22 History (Clarinex) gabapentin 300 mg capsule 300 mg PO UD 08/26/22 08/26/22 History lisinopril 10 mg tablet 10 mg PO QAM 08/26/22 08/26/22 History methocarbamol 500 mg tablet 1,000 mg PO Q6 PRN muscle 08/26/22 08/26/22 History spasm/discomfort/tension omeprazole 40 mg capsule,delayed 40 mg PO DAILYBB 08/26/22 08/26/22 History release tramadol 50 mg tablet 50 - 100 mg PO Q8 PRN pain,severe 08/26/22 08/26/22 History Patient History Medical History COPD with emphysema Surgical History (Updated 08/27/22 @ 09:03 by Jolynn Avina PA-C) H/O breast biopsy Right 01/03/2009 History of laminectomy left T7-8 endoscopic discectomy 02/01/[address] Holt [facility] [place] History of tonsillectomy and adenoidectomy 1985 History of total hysterectomy 2007 Social History Smoking Status: Heavy tobacco smoker Tobacco Type: Cigarettes Second Hand Exposure: Yes; Do You Dip or Chew Tobacco: No; Hx Alcohol Use: Yes Alcohol type: hard liquor Preferred Language: [place] Communication Ability: Effective Deputy Court Required: No Beliefs That Will Affect Care: None Current Living Situation: Spouse Other Information That Helps Us Care for You: No Feels Safe at Home: Yes Safety Concerns: Feels Safe At This Time Assistive Devices: None Review of Systems Review of Systems: All systems reviewed & are unremarkable except as noted in HPI & below Physical Exam Physical Exam: Constitutional: In distress secondary to pain HEENT: EOMI, PERRLA Respiratory system: Decreased air entry bilaterally, no wheeze, no rhonchi, positive crackles bilateral lower lobes CVS: S1-S2 positive, no murmurs or gallops Abdomen: Soft, nontender, nondistended, positive bowel sounds x4 Extremities: +2 pulses bilaterally radialis/ dorsalis pedis, no cyanosis, no edema Neuro: Awake alert oriented x3 Psych: Normal mood and affect G/U: No Suggs Skin: no rashes, warm and dry Lymphatic: no cervical or axillary lymphadenopathy Results & Data Results & Data ([facility]) Vital Signs (Past 12 Hours) Vital Signs Temp Pulse Resp BP BP Pulse Ox O2 Del Method 08/27/22 03:46 20 138/71 96 Room Air 08/27/22 01:13 94 H 08/27/22 00:35 36.4 C L 20 126/75 96 Room Air 08/27/22 01:42 Room Air 08/27/22 01:42 36.4 C L 20 126/75 96 Room Air 08/27/22 00:20 98 H 22 138/92 98 Room Air Laboratory Results 08/27/22 06:18 08/27/22 06:18 PG Care Time/CCT Total # of Minutes Spent Total Time Spent with Patient: Total time spent is greater than 50% in coordination of care (as documented) at patient's floor/unit and/or counseling patient: Coding Level of Care Code INP/OBS CONSULT LVL 5, 80 MIN History Comprehensive Exam Comprehensive Medical Decision Making High Complexity Diagnoses Pathological fracture of rib of left side M84.48XA Multiple pulmonary nodules R91.8 LAD (lymphadenopathy), mediastinal R59.0 COPD with emphysema J43.9
[2022-08-27 07:16] LABS: Troponin I High Sensitivity 10.3 pg/ml (0-14)
[2022-08-27 07:19] LABS: Basophils # (auto) 0.05 K/uL (0-0.2); Basophils % (auto) 0.3 %; Eosinophils # (auto) 0.77 K/uL (0-0.50); Eosinophils % (auto) 4.2 %; Hematocrit (blood only) 42.4 % (37.0-47.0); Hemoglobin 15.4 g/dl (12.0-16.0); Immature Granulocytes # (auto) 0.13 K/uL (0.01-0.20); Immature Granulocytes % (auto) 0.7 %; Lymphocytes # (auto) 0.85 K/uL (1.2-3.4); Lymphocytes % (auto) 4.6 %; Mean Corpuscular Hemoglobin 35.2 pg (25.0-34.0); Mean Corpuscular Hgb Conc 36.3 g/dL (32.0-36.0); Mean Corpuscular Volume 96.8 fL (80.0-100.0); Monocytes # (auto) 1.19 K/uL (0.11-0.59); Monocytes % (auto) 6.4 %; Neutrophils % (auto) 83.8 %; Platelet Count 503 K/uL (130-400); RDW Coefficient of Variation 12.6 % (11.5-14.5); RDW Standard Deviation 45.2 fL (36.4-46.3); Red Blood Count 4.38 M/uL (4.20-5.40); Toxic Vacuolation 1+; White Blood Count 18.49 K/ul (4.8-10.8)
[2022-08-27] MEDS: GABAPENTIN 300 MG CAP PO SCH ×2 (07:43→13:44)
[2022-08-27] MEDS: LORATADINE 10 MG TAB PO SCH (07:43)
[2022-08-27] MEDS: FOLIC ACID 1 MG TAB PO SCH (07:43)
[2022-08-27] MEDS: THIAMINE HCL 50 MG TABLET PO SCH (07:44)
[2022-08-27] MEDS: lisinopril 10 MG TAB PO SCH (07:44)
[2022-08-27] MEDS: ACETAMINOPHEN 325 MG TAB PO PRN (08:06)
--- NOTE | 2022-08-27 08:11 | Electrocardiogram Report ---
Test Reason : Blood Pressure : / mmHG Vent. Rate : 104 BPM Atrial Rate : 104 BPM P-R Int : 118 ms QRS Dur : 088 ms QT Int : 428 ms P-R-T Axes : 051 059 065 degrees QTc Int : 562 ms Poor data quality, interpretation may be adversely affected Sinus tachycardia Left atrial enlargement Diffuse Nonspecific ST abnormality Prolonged QT Abnormal ECG When compared with ECG of 26-MAR-2019 12:41, HR has increased by [address] now depressed in Anterior leads QT has lengthened Confirmed by Otoniel Whitfield ([id number]) on 08/27/2022 8:10:51 AM Referred By: REFERRED SELF Confirmed By:Otoniel Whitfield
--- NOTE | 2022-08-27 08:18 | Magnetic Resonance Report ---
THORACIC SPINE MRI WITH AND WITHOUT CONTRAST HISTORY: severe back pain. mets TECHNIQUE: Multiplanar multisequence MRI of the thoracic spine was performed both before and after th e intravenous administration of contrast. COMPARISON: Chest CTA 08/26/2022. FINDINGS: Scattered T2 hyperintense, T1 hypointense enhancing lesions within the thoracic spine most pronounced from the T6-T9 levels and centered at the T8 level. The T8 level is completely replaced by enhancing mass which demonstrates soft tissue extension into both the paravertebral and epidural space at this location. The epidural extension at the T7/T8 level measures up to 4 mm in thickness and results in mild central canal narrowing. This abuts but does not displace the spinal cord at this level. There i s left greater than right paravertebral extension measuring a maximal thickness of 2.3 cm. Left parav ertebral soft tissue extension is seen from the T6-T9 level. Left-sided rib fractures are better appr eciated on the same day chest CTA. Mediastinal and bilateral hilar lymphadenopathy is again noted. No definite fracture or subluxation within the thoracic spine. Mild degenerative disease throughout the thoracic spine. Soft tissue extension is also seen within the left T8-T9 neural foramen and results in severe neural foraminal narrowing at this level. There is moderate left-sided neural foraminal aamir rowing at T7-T8 due to the soft tissue tumor. Soft tissue tumor seen along the right T7-T8 and T8-T9 neural foramen also resulting in neural foraminal narrowing. IMPRESSION: 1. Multifocal osseous metastatic disease within the thoracic spine centered at the T8 level which dem onstrates both epidural and paraspinal soft tissue extension as described above. This results in mild central canal narrowing at this level. There is also bilateral neural foraminal narrowing at T7-T8 a nd T8-T9 due to the tumor extension. 2. No definite acute fractures within the thoracic spine. 3. The left rib fractures are better appreciated on the same day chest CT. 4. Mediastinal and bilateral hilar lymphadenopathy is again noted. ACT 112: Negative or not required by law. Electronically signed by: Robinson Moody M.D. 08/27/2022 8:16 AM
--- NOTE | 2022-08-27 08:21 | Magnetic Resonance Report ---
LUMBAR SPINE MRI WITH AND WITHOUT CONTRAST HISTORY: back pain. mets TECHNIQUE: Multiplanar multisequence MRI of the lumbar spine was performed both before and after the intravenous administration of contrast. COMPARISON: Abdomen and pelvis CT 08/26/2022. FINDINGS: For the purpose of the report the L5-S1 disc space will be located on axial image 23 of 25. There is a 12 mm T2 hyperintense enhancing lesion within the anterior aspect of the L1 vertebral body consistent with metastatic disease. No additional metastatic lesions identified within the lumbar sp ine. The conus terminates at the L1 level. Vertebral soft tissues are unremarkable. No epidural soft tissue extension identified. There is severe disc space narrowing at L2-L3 and L5-S1. There is mild d isc space narrowing at L3-L4 and L4-5. The visualized sacrum appears intact. No fracture or subluxati on. Broad-based posterior disc bulges at L2-L3, L3-L4, L4-5, and L5-S1 resulting in [id number] central canal narrowing. This is most pronounced at the L4-5 level. IMPRESSION: 1. A 12 mm metastatic focus within the anterior aspect of the L1 vertebral body. No epidural or constance kaleb soft tissue extension. 2. No fracture or subluxation. 3. Degenerative changes as described above. ACT 112: Negative or not required by law. Electronically signed by: Robinson Moody M.D. 08/27/2022 8:20 AM
--- NOTE | 2022-08-27 08:26 | Electrocardiogram Report ---
Test Reason : Blood Pressure : / mmHG Vent. Rate : 088 BPM Atrial Rate : 088 BPM P-R Int : 118 ms QRS Dur : 098 ms QT Int : 428 ms P-R-T Axes : 051 055 053 degrees QTc Int : 517 ms Normal sinus rhythm Left atrial enlargement Prolonged QT Minor Nonspecific ST abnormality Anterior leads Abnormal ECG When compared with ECG of 26-AUG-2022 16:42, ST depression in Anterior leads less pronounced Confirmed by Otoniel Whitfield ([id number]) on 08/27/2022 8:26:33 AM Referred By: REFERRED SELF Confirmed By:Otoniel Whitfield
--- NOTE | 2022-08-27 08:34 | Pain Management Consultation ---
Date of Consultation August 27, 2022 Assessment & Plan (1) Pathological fracture of rib of left side: (2) Lesion of thoracic vertebra: (3) Bone metastasis: Plan 1. Oxycodone will be increased form 5mg to 10mg x 4 hours 2. Robaxin will be replaced with with Baclofen 10mg TID 3. Gabapentin will remain at 300mg, 300mg, 900mg daily 4. Hydromorphone 0.5mg x 4 hours PRN breakthrough pain 5. Nothing to offer interventionally. 6. Continue Lidocaine patch Thank you for the consultation. Please contact with any questions or concerns. History of Present Illness Reason for Consultation: Back pain Attending Physician: Leon Blackman MD History of Present Illness This is a 61 year old female that has been admitted to the [facility] for worsening thoracic back pain. She has been experiencing increased thoracic back pain for 6+ months. Patient was found to have a left-sided disc herniation at T7-T8 on 10/11/2021 thoracic MRI. Patient has received a thoracic epidural injection without relief and then received a left T7-[address] Holt at [facility] 02/01/22 without relief. She then saw Dr. Lira at [facility] for this and received a therapeutic erector spinae plane block on 08/15/22 without relief. At home she has been taking Tramadol 50mg six times daily and Robaxin 1000mg four times daily without relief. Patient is reporting significant pain along the mid thoracic region and into the left lateral ribs. She is currently receiving lidocaine patches, oxycodone 5mg x 4 hours, methocarbamol 1000 mg 4 times daily, and IV Dilaudid 0.5 mg every 4 hours. At this time her pain is not controlled. Allergies Allergy/AdvReac Type Severity Reaction Status Date / Time No Known Allergies Allergy Unverified 08/26/22 20:37 Home Medications Medication Instructions Recorded Confirmed Type citalopram 40 mg tablet (Celexa) 40 mg PO QAM 12/19/19 08/26/22 History desloratadine 5 mg tablet 5 mg PO QAM 12/19/19 08/26/22 History (Clarinex) gabapentin 300 mg capsule 300 mg PO UD 08/26/22 08/26/22 History lisinopril 10 mg tablet 10 mg PO QAM 08/26/22 08/26/22 History methocarbamol 500 mg tablet 1,000 mg PO Q6 PRN muscle 08/26/22 08/26/22 History spasm/discomfort/tension omeprazole 40 mg capsule,delayed 40 mg PO DAILYBB 08/26/22 08/26/22 History release tramadol 50 mg tablet 50 - 100 mg PO Q8 PRN pain,severe 08/26/22 08/26/22 History Patient History Medical History COPD with emphysema Surgical History (Updated 08/27/22 @ 09:03 by Jolynn Avina PA-C) H/O breast biopsy Right 01/03/2009 History of laminectomy left T7-8 endoscopic discectomy 02/01/[address] Holt [facility] [place] History of tonsillectomy and adenoidectomy 1986 History of total hysterectomy 2007 Social History Smoking Status: Heavy tobacco smoker Tobacco Type: Cigarettes Second Hand Exposure: Yes; Do You Dip or Chew Tobacco: No; Hx Alcohol Use: Yes Alcohol type: hard liquor Preferred Language: Luxembourgish Communication Ability: Effective General Engineering Teacher Required: No Beliefs That Will Affect Care: None Current Living Situation: Spouse Other Information That Helps Us Care for You: No Feels Safe at Home: Yes Safety Concerns: Feels Safe At This Time Assistive Devices: None Physical Exam Physical Exam: GENERAL: This is a 61 year old female that appears in significant pain, writhing around in hospital bed. HEAD/FACE: Normocephalic and atraumatic. EYES: No drainage or conjunctival injection. ENT: Nose without bleeding or discharge. Oral mucosa moist. NECK: Full ROM without apparent pain. No swelling or masses noted. RESPIRATORY: Patient with unlabored breathing. No signs of respiratory distress. CHEST/AXILLA: Chest movement symmetrical. No deformities noted. Significant tenderness along the left 7th rib. CARDIOVASCULAR: Patients heart rate is regular, with pulse rate as documented. No edema noted. ABDOMEN/GI: No distension BACK: Moves without difficulty. There is significant tenderness along the T8 midline. Mild tenderness along the T6 region. Mild paravertebral muscle spasm. No lumbar tenderness. SKIN: [place], warm and dry. No rash noted. MS/EXTREMITY: No swelling, no deformities. Moving extremities appropriately. NEURO: Alert and appears oriented. Speech is fluent. Cranial Nerves are grossly intact. PSYCH: Alert, pleasant, affect is calm
--- NOTE | 2022-08-27 08:43 | Hospitalist Progress Note ---
Date of Service August 27, 2022 Assessment & Plan (1) COPD with emphysema: (2) Metastatic cancer: (3) Multiple pulmonary nodules: (4) Pathological fracture of rib of left side: Plan: This is a 61-year-old female, who presents with severe back pain, going on for a year, had endoscopic decompression of thoracic spine in [place] in January and also recently had nerve block of the thoracic spine, comes with worsening pain and found to have possible metastatic disease. 1. Severe back pain, thoracic spine pain and left ribcage pain: Imaging studies show 1.5-cm left lung apex nodule, pathological fracture of the left 6th and 7th ribs, multiple skeletal lesions including lesions in the T8 vertebra with mild epidural extension of the tumor and paravertebral extension.Pain control initially iv dilaudid p.r.n. and oxycodone p.r.n Received dose of soulmedrol on admission. Pain management consulted, oxycodone increased, appreciate their input Mri of spine ordered. Hem/onc consulted, may also need radiation oncology. Pulmonary medicine consulted and plan for bronchoscopy - at this time pt declined as she feels overwhelmed and in pain, would like to have procedure on . 2. History of hypertension: Continue lisinopril. 3. Gastroesophageal reflux disease: Continue omeprazole. 4. History of depression. We will hold Celexa for QT prolongation. We will follow the EKG for QT prolongation ,possibly from hypokalemia 5. Hypokalemia:Replace and monitor. 6. Hyponatremia: Sodium 129 possibly siadh from malignancy, also poor oral intake.D5 normal saline on admission. We will also follow urine osmolality, serum osmolality, and urine sodium levels. If not improving, we will consult nephrology. 7. Leukocytosis Blood cultures ordered. will follow repeat labs. 8. Mild hypercalcemia follow repeat labs. 9. Mild elevation of troponin, mostly demand ischemia: We will follow the serial enzymes. 9. Ongoing tobacco abuse: Needs counseling. Nicotine patch for now. 10. Alcoholism: The patient says she drinks 2 glasses of whiskey daily, but she thinks she wont go through withdrawal.Placed on thiamine, folic acid, and IV Ativan p.r.n. for now. DVT px scds for now. If no procedure planned will place on lovenox. DISPOSITION: med tele. PT/OT prior to discharge. Social service to help with discharge planning. Level 1 full code. Admission and Anticipated Discharge Date Admission Date: August 26, 2022 Subjective Pt admitted overnight, seen in follow up of back pain, lung nodule/ metastatic disease Seen by pain management earlier and pain meds adjusted Seen by pulmonary medicine and plan for bronchoscopy but at this time pt is not interested / overwhelmed and in pain On my evaluation pt is resting/ sleeping soundly Her brother is present at the bedside and updated Reports pt hasn't slept in a while due to pain Review of Systems Review of Systems: Unobtainable due to cognitive status Physical Exam Physical Exam: GENERAL: The patient is of moderate build, not in acute distress. HEENT: NC/AT. Oral mucosa moist. NECK: No JVD, no neck masses. CARDIOVASCULAR: S1 and S2 heard. Regular rate and rhythm. No murmur, no gallop. RESPIRATORY: Normal AP diameter. No accessory muscle use. No wheezing, no crackles. ABDOMEN: Soft, bowel sounds present, no distention, NEURO: Drowsy d/t pain meds. Moves extremities. EXTREMITIES: No edema, no erythema. MSK: Has tenderness in the left-sided lower rib cage and upper back spine region. Results & Data Results & Data ([facility]) Vital Signs (Past 12 Hours) Vital Signs Temp Pulse Resp BP BP BP Pulse Ox 08/27/22 07:23 36.5 C 18 137/87 95 08/27/22 07:20 08/27/22 07:16 103 H 08/27/22 03:46 20 138/71 96 08/27/22 01:13 94 H 08/27/22 00:35 36.4 C L 20 126/75 96 08/27/22 01:42 08/27/22 01:42 36.4 C L 20 126/75 96 08/27/22 00:20 98 H 22 138/92 98 O2 Del Method 08/27/22 07:23 Room Air 08/27/22 07:20 Room Air 08/27/22 07:16 08/27/22 03:46 Room Air 08/27/22 01:13 08/27/22 00:35 Room Air 08/27/22 01:42 Room Air 08/27/22 01:42 Room Air 08/27/22 00:20 Room Air Laboratory Results 08/27/22 08/27/22 08/27/22 Range/Units 06:18 06:18 02:40 WBC 18.49 H (4.8-10.8) K/ul RBC 4.38 (4.20-5.40) M/uL Hgb 15.4 (12.0-16.0) g/dl Hct 42.4 (37.0-47.0) % MCV 96.8 (80.0-100.0) fL MCH 35.2 H (25.0-34.0) pg MCHC 36.3 H (32.0-36.0) g/dL RDW Std Deviation 45.2 (36.4-46.3) fL RDW Coeff of Riana 12.6 (11.5-14.5) % Plt Count 503 H (130-400) K/uL MPV 10.0 (9.4-12.4) fL Immature Gran % (Auto) 0.7 % Neut % (Auto) 83.8 % Lymph % (Auto) 4.6 % [place] % (Auto) 6.4 % Eos % (Auto) 4.2 % Baso % (Auto) 0.3 % Neut # (Auto) 15.50 H (1.40-6.50) K/uL Lymph # (Auto) 0.85 L (1.2-3.4) K/uL [place] # (Auto) 1.19 H (0.11-0.59) K/uL Eos # (Auto) 0.77 H (0-0.50) K/uL Baso # (Auto) 0.05 (0-0.2) K/uL Immature Gran # (Auto) 0.13 (0.01-0.20) K/uL Toxic Vacuolation 1+ PT (9.0-12.0) Seconds INR (0.9-1.1) APTT (21.0-31.0) Seconds PTT Ratio Sodium 131 L (136-145) mmol/L Potassium 3.6 D (3.5-5.1) mmol/L Chloride 105 (98-107) mmol/L Carbon Dioxide 18 L (21-32) mmol/L Anion Gap 8 (3-11) BUN 8 (6-23) mg/dl Creatinine 0.57 L D (0.6-1.2) mg/dl Est Cr Clr Drug Dosing 92.1 Est GFR ( Amer) 115.2 ml/min Est GFR (Non-Af Amer) 99.4 ml/min BUN/Creatinine Ratio 14.0 (10-20) Glucose 151 H (70-99(Fasting)) mg/dl Osmolality (280-300) mOsm/kg Calcium 9.4 (8.5-10.1) mg/dl Magnesium 2.4 (1.7-2.4) mg/dl Total Bilirubin (0.2-1.0) mg/dl AST (13-39) U/L ALT (7-52) U/L Alkaline Phosphatase (34-104) U/L Troponin I High Sens 10.3 D (0-14) pg/ml Total Protein (6.0-8.3) gm/dl Albumin (3.4-5.0) gm/dl Globulin (2.5-4.0) gm/dl Albumin/Globulin Ratio (0.9-2) Lipase (11-82) U/L Urine Color Yellow Urine Appearance Clear (Clear) Urine pH 7.5 (4.5-7.5) Ur Specific [place] 1.035 H (1.000-1.030) Urine Protein Trace H (Negative) Urine Glucose (UA) Negative (Negative) Urine Ketones Negative (Negative) Urine Blood Negative (Negative) Urine Nitrite Negative (Negative) Urine Bilirubin Negative (Negative) Urine Urobilinogen Negative (Negative) Ur Leukocyte Esterase Negative (Negative) Urine WBC (Auto) 1-5 (0-5) /hpf Urine RBC (Auto) 0-4 (0-4) /hpf U Hyaline Cast (Auto) 1-5 (0-5) /lpf U Epithel Cells (Auto) 10-20 H (0-5) /lpf Urine Bacteria (Auto) Negative (Negative) Urine Osmolality (500-800) mOsm/kg Ur Random Sodium mmol/L SARS-CoV-2, RNA, NAAT (NEGATIVE) 08/27/22 08/27/22 08/26/22 Range/Units 02:40 02:40 19:59 WBC (4.8-10.8) K/ul RBC (4.20-5.40) M/uL Hgb (12.0-16.0) g/dl Hct (37.0-47.0) % MCV (80.0-100.0) fL MCH (25.0-34.0) pg MCHC (32.0-36.0) g/dL RDW Std Deviation (36.4-46.3) fL RDW Coeff of Riana (11.5-14.5) % Plt Count (130-400) K/uL MPV (9.4-12.4) fL Immature Gran % (Auto) % Neut % (Auto) % Lymph % (Auto) % [place] % (Auto) % Eos % (Auto) % Baso % (Auto) % Neut # (Auto) (1.40-6.50) K/uL Lymph # (Auto) (1.2-3.4) K/uL [place] # (Auto) (0.11-0.59) K/uL Eos # (Auto) (0-0.50) K/uL Baso # (Auto) (0-0.2) K/uL Immature Gran # (Auto) (0.01-0.20) K/uL Toxic Vacuolation PT (9.0-12.0) Seconds INR (0.9-1.1) APTT (21.0-31.0) Seconds PTT Ratio Sodium (136-145) mmol/L Potassium (3.5-5.1) mmol/L Chloride (98-107) mmol/L Carbon Dioxide (21-32) mmol/L Anion Gap (3-11) BUN (6-23) mg/dl Creatinine (0.6-1.2) mg/dl Est Cr Clr Drug Dosing Est GFR ( Amer) ml/min Est GFR (Non-Af Amer) ml/min BUN/Creatinine Ratio (10-20) Glucose (70-99(Fasting)) mg/dl Osmolality (280-300) mOsm/kg Calcium (8.5-10.1) mg/dl Magnesium (1.7-2.4) mg/dl Total Bilirubin (0.2-1.0) mg/dl AST (13-39) U/L ALT (7-52) U/L Alkaline Phosphatase (34-104) U/L Troponin I High Sens (0-14) pg/ml Total Protein (6.0-8.3) gm/dl Albumin (3.4-5.0) gm/dl Globulin (2.5-4.0) gm/dl Albumin/Globulin Ratio (0.9-2) Lipase (11-82) U/L Urine Color Urine Appearance (Clear) Urine pH (4.5-7.5) Ur Specific [place] (1.000-1.030) Urine Protein (Negative) Urine Glucose (UA) (Negative) Urine Ketones (Negative) Urine Blood (Negative) Urine Nitrite (Negative) Urine Bilirubin (Negative) Urine Urobilinogen (Negative) Ur Leukocyte Esterase (Negative) Urine WBC (Auto) (0-5) /hpf Urine RBC (Auto) (0-4) /hpf U Hyaline Cast (Auto) (0-5) /lpf U Epithel Cells (Auto) (0-5) /lpf Urine Bacteria (Auto) (Negative) Urine Osmolality 282 L (500-800) mOsm/kg Ur Random Sodium 20 mmol/L SARS-CoV-2, RNA, NAAT NEGATIVE (NEGATIVE) 08/26/22 08/26/22 08/26/22 Range/Units 18:56 16:57 16:56 WBC (4.8-10.8) K/ul RBC (4.20-5.40) M/uL Hgb (12.0-16.0) g/dl Hct (37.0-47.0) % MCV (80.0-100.0) fL MCH (25.0-34.0) pg MCHC (32.0-36.0) g/dL RDW Std Deviation (36.4-46.3) fL RDW Coeff of Riana (11.5-14.5) % Plt Count (130-400) K/uL MPV (9.4-12.4) fL Immature Gran % (Auto) % Neut % (Auto) % Lymph % (Auto) % [place] % (Auto) % Eos % (Auto) % Baso % (Auto) % Neut # (Auto) (1.40-6.50) K/uL Lymph # (Auto) (1.2-3.4) K/uL [place] # (Auto) (0.11-0.59) K/uL Eos # (Auto) (0-0.50) K/uL Baso # (Auto) (0-0.2) K/uL Immature Gran # (Auto) (0.01-0.20) K/uL Toxic Vacuolation PT (9.0-12.0) Seconds INR (0.9-1.1) APTT (21.0-31.0) Seconds PTT Ratio Sodium 129 L (136-145) mmol/L Potassium 2.4 L* (3.5-5.1) mmol/L Chloride 97 L (98-107) mmol/L Carbon Dioxide 19 L (21-32) mmol/L Anion Gap 13 H (3-11) BUN 10 (6-23) mg/dl Creatinine 0.88 (0.6-1.2) mg/dl Est Cr Clr Drug Dosing Not Reportable Est GFR ( Amer) 81.6 ml/min Est GFR (Non-Af Amer) 70.4 ml/min BUN/Creatinine Ratio 11.4 (10-20) Glucose 113 H (70-99(Fasting)) mg/dl Osmolality 277 L (280-300) mOsm/kg Calcium 10.4 H (8.5-10.1) mg/dl Magnesium 2.5 H (1.7-2.4) mg/dl Total Bilirubin 0.6 (0.2-1.0) mg/dl AST 25 (13-39) U/L ALT 21 (7-52) U/L Alkaline Phosphatase 104 (34-104) U/L Troponin I High Sens 16.9 H D 21.9 H (0-14) pg/ml Total Protein 8.4 H (6.0-8.3) gm/dl Albumin 3.9 (3.4-5.0) gm/dl Globulin 4.5 H (2.5-4.0) gm/dl Albumin/Globulin Ratio 0.9 (0.9-2) Lipase 59 (11-82) U/L Urine Color Urine Appearance (Clear) Urine pH (4.5-7.5) Ur Specific [place] (1.000-1.030) Urine Protein (Negative) Urine Glucose (UA) (Negative) Urine Ketones (Negative) Urine Blood (Negative) Urine Nitrite (Negative) Urine Bilirubin (Negative) Urine Urobilinogen (Negative) Ur Leukocyte Esterase (Negative) Urine WBC (Auto) (0-5) /hpf Urine RBC (Auto) (0-4) /hpf U Hyaline Cast (Auto) (0-5) /lpf U Epithel Cells (Auto) (0-5) /lpf Urine Bacteria (Auto) (Negative) Urine Osmolality (500-800) mOsm/kg Ur Random Sodium mmol/L SARS-CoV-2, RNA, NAAT (NEGATIVE) 08/26/22 08/26/22 Range/Units 16:56 16:56 WBC 18.53 H (4.8-10.8) K/ul RBC 4.83 (4.20-5.40) M/uL Hgb 16.8 H (12.0-16.0) g/dl Hct 46.4 (37.0-47.0) % MCV 96.1 (80.0-100.0) fL MCH 34.8 H (25.0-34.0) pg MCHC 36.2 H (32.0-36.0) g/dL RDW Std Deviation 45.1 (36.4-46.3) fL RDW Coeff of Riana 12.5 (11.5-14.5) % Plt Count 474 H (130-400) K/uL MPV 9.8 (9.4-12.4) fL Immature Gran % (Auto) 0.8 % Neut % (Auto) 85.1 % Lymph % (Auto) 5.7 % [place] % (Auto) 7.9 % Eos % (Auto) 0.1 % Baso % (Auto) 0.4 % Neut # (Auto) 15.78 H (1.40-6.50) K/uL Lymph # (Auto) 1.05 L (1.2-3.4) K/uL [place] # (Auto) 1.46 H (0.11-0.59) K/uL Eos # (Auto) 0.01 (0-0.50) K/uL Baso # (Auto) 0.08 (0-0.2) K/uL Immature Gran # (Auto) 0.15 (0.01-0.20) K/uL Toxic Vacuolation PT 9.9 (9.0-12.0) Seconds INR 0.9 (0.9-1.1) APTT 27.2 (21.0-31.0) Seconds PTT Ratio 1.0 Sodium (136-145) mmol/L Potassium (3.5-5.1) mmol/L Chloride (98-107) mmol/L Carbon Dioxide (21-32) mmol/L Anion Gap (3-11) BUN (6-23) mg/dl Creatinine (0.6-1.2) mg/dl Est Cr Clr Drug Dosing Est GFR ( Amer) ml/min Est GFR (Non-Af Amer) ml/min BUN/Creatinine Ratio (10-20) Glucose (70-99(Fasting)) mg/dl Osmolality (280-300) mOsm/kg Calcium (8.5-10.1) mg/dl Magnesium (1.7-2.4) mg/dl Total Bilirubin (0.2-1.0) mg/dl AST (13-39) U/L ALT (7-52) U/L Alkaline Phosphatase (34-104) U/L Troponin I High Sens (0-14) pg/ml Total Protein (6.0-8.3) gm/dl Albumin (3.4-5.0) gm/dl Globulin (2.5-4.0) gm/dl Albumin/Globulin Ratio (0.9-2) Lipase (11-82) U/L Urine Color Urine Appearance (Clear) Urine pH (4.5-7.5) Ur Specific [place] (1.000-1.030) Urine Protein (Negative) Urine Glucose (UA) (Negative) Urine Ketones (Negative) Urine Blood (Negative) Urine Nitrite (Negative) Urine Bilirubin (Negative) Urine Urobilinogen (Negative) Ur Leukocyte Esterase (Negative) Urine WBC (Auto) (0-5) /hpf Urine RBC (Auto) (0-4) /hpf U Hyaline Cast (Auto) (0-5) /lpf U Epithel Cells (Auto) (0-5) /lpf Urine Bacteria (Auto) (Negative) Urine Osmolality (500-800) mOsm/kg Ur Random Sodium mmol/L SARS-CoV-2, RNA, NAAT (NEGATIVE) Medications Administered Current Inpatient Medications Acetaminophen (Acetaminophen 325 Mg Tab) 650 mg PO Q4H PRN PRN Reason: Pain or Fever Stop: 09/26/22 00:54 Last Admin: 08/27/22 08:06 Dose: 650 mg Citalopram Hydrobromide (Citalopram 40 Mg Tab) 40 mg PO QAM [facility] Stop: 09/26/22 08:59 Folic Acid (F[facility] Acid 1 Mg Tab) [facility] Stop: 09/26/22 08:59 Last Admin: 08/27/22 07:43 Dose: 1 mg Gabapentin (Gabapentin 300 Mg Cap) 900 mg PO HS [facility] Stop: 09/26/22 20:59 Gabapentin (Gabapentin 300 Mg Cap) 300 mg PO 0900,1400 [facility] Stop: 09/26/22 08:59 Last Admin: 08/27/22 07:43 Dose: 300 mg Hydromorphone HCl (Hydromorphone Inj 0.5 Mg/0.5 Ml Syr) 0.5 mg IV Q3H PRN PRN Reason: Severe Pain Stop: 09/10/22 00:54 Last Admin: 08/27/22 05:41 Dose: 0.5 mg Dextrose/Sodium Chloride (D5w And Nss) 1,000 mls @ 80 mls/hr IV .[id number] [facility] Stop: 09/26/22 00:54 Last Infusion: 08/27/22 05:45 Dose: 80 mls/hr Potassium Chloride (K Juan / Wtr) 10 meq in 100 mls @ 100 mls/hr IV Q1H [facility] Stop: 08/27/22 10:29 Last Admin: 08/27/22 07:51 Dose: 100 mls/hr Lidocaine (Lidocaine 5% 1 Patch) 1 patch TD [facility] Stop: 09/26/22 20:59 Lisinopril (Lisinopril 10 Mg Tab) 10 mg PO [facility] Stop: 09/26/22 08:59 Last Admin: 08/27/22 07:44 Dose: 10 mg Loratadine (Loratadine 10 Mg Tab) [facility] Stop: 09/26/22 08:59 Last Admin: 08/27/22 07:43 Dose: 10 mg Lorazepam (Lorazepam 2 Mg/1 Ml Vial) 0.5 mg IV Q4H PRN PRN Reason: Anxiety/Agitation Stop: 09/26/22 00:54 Last Admin: 08/27/22 06:15 Dose: 0.5 mg Methocarbamol (Methocarbamol 500 Mg Tablet) 1,000 mg PO Q6 PRN PRN Reason: muscle spasm/discomfort/tensio Stop: 09/26/22 00:54 Last Admin: 08/27/22 04:05 Dose: 1,000 mg Nitroglycerin (Nitroglycerin Sl 0.4 Mg/Tab Tab) 0.4 mg SL UD PRN PRN Reason: Chest Pain Stop: 09/26/22 00:54 Oxycodone HCl (Oxycodone Hcl Ir 5 Mg Tab (Immediate Release)) 5 mg PO Q4H PRN PRN Reason: Moderate Pain Stop: 09/10/22 00:54 Last Admin: 08/27/22 04:03 Dose: 5 mg Pantoprazole Sodium (Pantoprazole 40 Mg Tab) [facility] Stop: 09/26/22 06:29 Last Admin: 08/27/22 06:15 Dose: 40 mg Polyethylene Glycol (Polyethylene (Miralax) 17 Gm Pack) 17 gm PO DAILY PRN PRN Reason: Constipation Stop: 09/26/22 00:54 Thiamine HCl (Thiamine Hcl 50 Mg Tablet) [facility] [place] Stop: 09/26/22 08:59 Last Admin: 08/27/22 07:44 Dose: 50 mg
--- NOTE | 2022-08-27 08:58 | Electrocardiogram Report ---
Test Reason : Blood Pressure : / mmHG Vent. Rate : 105 BPM Atrial Rate : 105 BPM P-R Int : 118 ms QRS Dur : 074 ms QT Int : 360 ms P-R-T Axes : 055 048 049 degrees QTc Int : 475 ms Poor data quality, interpretation may be adversely affected Sinus tachycardia Left atrial enlargement Minor Nonspecific ST abnormality Anterior leads Abnormal ECG When compared with ECG of 26-AUG-2022 19:28, No significant change Confirmed by Otoniel Whitfield ([id number]) on 08/27/2022 8:57:32 AM Referred By: REFERRED SELF Confirmed By:Otoniel Whitfield
[2022-08-27] MEDS ORDERED: CITALOPRAM 40 MG TAB PO SCH ×2 (09:00)
[2022-08-27] MEDS: oxyCODONE HCL IR 5 MG TAB (IMMEDIATE RELEASE) PO PRN ×4 (09:06→21:48)
[2022-08-27] MEDS: BACLOFEN 10 MG TAB PO SCH ×3 (09:07→20:45)
--- NOTE | 2022-08-27 10:18 | Magnetic Resonance Report ---
MRI OF THE CERVICAL SPINE COMBO CLINICAL HISTORY: Back pain. Metastatic disease. COMPARISON STUDY: No priors. TECHNIQUE: MRI of the cervical spine is performed utilizing various T1 and T2-weighted sequences in t he axial and sagittal planes. Contrast enhanced sequences are acquired following the IV administratio n of 6 cc of Gadavist. The examination is significantly compromised by motion artifact. FINDINGS: Cervical spine: Vertebral body height and alignment are maintained throughout the cervical spine. Mar row signal intensity is heterogeneous. There is straightening of the cervical lordosis. Anterior oste ophytes are seen throughout. The atlantodental articulation is maintained. The spinous processes appe ar intact. Chronic degenerative endplate changes is seen at several levels, greatest at C4-C5. No antelmo tructive or enhancing bony lesion is seen in the cervical spine. There is evidence of metastatic dise ase in the thoracic spine seen on the carburetor mechanic sequence. Intervertebral discs: Degenerative disc desiccation and loss of height is seen throughout the cervica l spine. Loss of height is moderate to severe at C4-C5, C5-C6, and C6-C7. Spinal cord and central canal: The cervical cord is normal in morphology and signal intensity with no abnormal postcontrast enhancement identified. There is no evidence of enhancing epidural tumor. C2-C3: A posterior disc osteophyte complex effaces the ventral subarachnoid space. Predominantly face t arthropathy is of no consequence. The neural foramina are patent. C3-C4: A posterior disc osteophyte complex effaces the ventral cord. The minimum AP canal diameter at this level measures up to 5 mm. Uncovertebral and facet arthropathy contribute to moderate left and mild right neural foraminal stenosis. C4-C5: A posterior disc osteophyte complex eccentric to the left effaces the ventral cord. There is l eft lateral disc bulge. In conjunction with facet arthropathy there is severe left neural foraminal s tenosis with impingement on the exiting left C5 nerve root. Uncovertebral and facet arthropathy contr ibute to moderate neural foraminal narrowing on the right. C5-C6: A posterior disc osteophyte complex effaces the ventral cord. Lateral disc bulges and facet ar thropathy contribute to severe bilateral neural foraminal stenosis. There is likely impingement on th e exiting bilateral C6 nerve roots. C6-C7: Posterior disc osteophyte complex abuts the ventral cord. Uncovertebral and facet arthropathy contribute to severe left and moderate to severe right neural foraminal stenosis. There may be imping ement on the exiting left C7 nerve root. C7-T1: Unremarkable. Soft tissues: The prevertebral and paraspinous soft tissues are normal as visualized. Brain parenchyma: The imaged brain parenchyma at the skull base is within normal limits. IMPRESSION: 1. Significantly motion compromised examination. 2. There is no MRI evidence of metastatic disease in the cervical spine. 3. 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 4. The cervical cord is normal in morphology and signal intensity. 5. Multilevel cervical spondylosis as above. See discussion for detailed level by level analysis. Dictated: 08/27/2022 8:58 AM Transcribed: 08/27/2022 9:17 AM Audra [id number] [email or web address] Electronically signed by: Nathan Simeon M.D. 08/27/2022 10:16 AM
[2022-08-27] MEDS: UMECLIDINIUM/VILANTEROL 62.5/25MCG 7 PUFFS/INHALER INH SCH (12:56)
[2022-08-27] MEDS: LIDOCAINE 5% 1 PATCH TD SCH (20:46)
[2022-08-27] MEDS ORDERED: GABAPENTIN 300 MG CAP PO SCH (21:00)
[2022-08-28] MEDS: D5W AND NSS 1,000 ML IV SCH ×2 (02:30→15:09)
[2022-08-28] MEDS: PANTOprazole 40 MG TAB PO SCH (04:48)
[2022-08-28] MEDS: oxyCODONE HCL IR 5 MG TAB (IMMEDIATE RELEASE) PO PRN (04:49)
--- NOTE | 2022-08-28 06:09 | Consultation ---
Date of Consultation August 27, 2022 Assessment & Plan (1) Breast nodule: Apparently with previous breast biopsy that was benign though not able to fully confirm that history. Current pattern is much more suggestive of a lung primary than of a metastatic breast malignancy, histology from the pending bronchoscopy should confirm that and if so we can probably simply monitor the breast lesion for now as we focus our prognostic and treatment discussions on the more pressing process of apparently widespread metastatic lung cancer (2) Metastatic cancer: In a long-term smoker, the presentation with significant thoracic pathologic adenopathy and widespread skeletal metastases strongly suggests a lung cancer primary. Diagnostic navigational bronchoscopy is scheduled for and from that we should be quickly able to ascertain the subtype of lung cancer which will have both prognostic and treatment option implications. Current sleepiness is almost certainly a medication effect related to her narcotics but in this context an MRI of the brain with and without contrast wou ld be worthwhile. Skeletal lesions seem to be particularly concentrated in the thoracic spine. "Curbside" review with orthopedics might be worthwhile just to be sure we do not have to be immediately concerned about the modest spinal impingement or of spinal stability. Involvement of radiation oncology to discuss potential palliative radiation to the spine for help with pain control and lessening of narcotic requirements could be very worthwhile (3) Hypercalcemia: Borderline elevation of calcium gilbert resolved with fluids only. Given the widespread skeletal metastases she is at ongoing risk for hypercalcemia and bone directed therapy will be a part of her overall management plan in time. Any significant relapse of hypercalcemia this admission might warrant at least an initial dose of bisphosphonate Plan 1. Await diagnostic bronchoscopy for definition/confirmation of tissue type 2. Consider MRI of the brain with and without contrast to complete staging, PET scan can be coordinated as an outpatient 3. Radiation oncology consultation could be worthwhile for pain management given the spinal metastases 4. Consider "curbside" reviewed with spinal specialist 5. Consider 1 dose of bisphosphonate if there is any relapse of significant hypercalcemia History of Present Illness Reason for Consultation: 1 to 1-1/2 pack/day smoker who presents with widespread skeletal lesions consistent with metastases and pathologic mediastinal adenopathy as well as a potential primary site lung lesion. Attending Physician: Leon Blackman MD History of Present Illness Patient was quite sleepy at the time I met with her so I was able to get only limited information from her but there is an extensive database in the chart from the hospitalist admission history and physical and pulmonary consultations that gives a good overall picture. 1 to 1/2 pack/day smoker she has been dealing with back pain for some months including invasive procedures at the [facility] which have only incompletely relieved the pain. Admitted with more severe exacerbation she has radiologic evidence of widespread metastatic cancer probably of lung origin. She does note a history of a right breast biopsy but apparently that was benign, colonoscopy is not previously indicated any specific lesions. She is currently status post cautery of cervix and subsequent hysterectomy but on questioning does not seem to indicate that there was cecilio malignancy there. Previous EGD also did not show any signs of cecilio malignancy. She has ongoing medical issues including allergic rhinitis hypertension and gastroesophageal reflux Family history is notable for an aunt with ovarian cancer but otherwise there is no pattern of unusual cancers listed in her family, she was too sleepy to give me a thorough review. Allergies Allergy/AdvReac Type Severity Reaction Status Date / Time No Known Allergies Allergy Unverified 08/26/22 20:37 Home Medications Medication Instructions Recorded Confirmed Type citalopram 40 mg tablet (Celexa) 40 mg PO QAM 12/19/19 08/26/22 History desloratadine 5 mg tablet 5 mg PO QAM 12/19/19 08/26/22 History (Clarinex) gabapentin 300 mg capsule 300 mg PO UD 08/26/22 08/26/22 History lisinopril 10 mg tablet 10 mg PO QAM 08/26/22 08/26/22 History methocarbamol 500 mg tablet 1,000 mg PO Q6 PRN muscle 08/26/22 08/26/22 History spasm/discomfort/tension omeprazole 40 mg capsule,delayed 40 mg PO DAILYBB 08/26/22 08/26/22 History release tramadol 50 mg tablet 50 - 100 mg PO Q8 PRN pain,severe 08/26/22 08/26/22 History Patient History Medical History (Updated 08/28/22 @ 06:16 by Reginaldo Martinez MD) COPD with emphysema Surgical History (Updated 08/27/22 @ 09:03 by Jolynn Avina PA-C) H/O breast biopsy Right 01/03/2009 History of laminectomy left T7-8 endoscopic discectomy 02/01/[address] Holt [facility] History of tonsillectomy and adenoidectomy 1986 History of total hysterectomy 2007 Social History Smoking Status: Heavy tobacco smoker Tobacco Type: Cigarettes Second Hand Exposure: Yes; Do You Dip or Chew Tobacco: No; Hx Alcohol Use: Yes Alcohol type: hard liquor Preferred Language: Slovenian Communication Ability: Effective Lieutenant Fire Fighter Required: No Beliefs That Will Affect Care: None Current Living Situation: Spouse Other Information That Helps Us Care for You: No Feels Safe at Home: Yes Safety Concerns: Feels Safe At This Time Assistive Devices: None Physical Exam Physical Exam: Patient was quite sleepy but answering questions appropriately and fluently and seemed in no acute respiratory distress nor in severe pain No pathologic peripheral adenopathy Not tachypneic or using accessory muscles of respiration, no marked wheezes or stridor Cardiac rhythm is regular without pathologic murmur, borderline tachycardic Abdomen benign without organomegaly or mass Other than the sleepiness her neurologic exam seemed unremarkable, she moves all 4 extremities and seems to have good strength. No meningismus Results & Data ([facility]) Vital Signs (Past 12 Hours) Vital Signs Temp Pulse Pulse Resp BP Pulse Ox O2 Del Method 08/28/22 03:23 37.2 C 117 H 18 129/72 94 Room Air 08/27/22 23:56 111 H 08/27/22 22:49 36.9 C 113 H 16 125/76 95 Room Air 08/27/22 19:15 36.8 C 101 H 18 106/71 94 Room Air Laboratory Results Laboratory Results - last 24 hr 08/27/22 08/27/22 08/27/22 06:18 06:18 10:48 WBC 18.49 H RBC 4.38 Hgb 15.4 Hct 42.4 MCV 96.8 MCH 35.2 H MCHC 36.3 H RDW Std Deviation 45.2 RDW Coeff of Riana 12.6 Plt Count 503 H MPV 10.0 Immature Gran % (Auto) 0.7 Neut % (Auto) 83.8 Lymph % (Auto) 4.6 [place] % (Auto) 6.4 Eos % (Auto) 4.2 Baso % (Auto) 0.3 Neut # (Auto) 15.50 H Lymph # (Auto) 0.85 L [place] # (Auto) 1.19 H Eos # (Auto) 0.77 H Baso # (Auto) 0.05 Immature Gran # (Auto) 0.13 Toxic Vacuolation 1+ Sodium 131 L Potassium 3.6 D Chloride 105 Carbon Dioxide 18 L Anion Gap 8 BUN 8 Creatinine 0.57 L D Est Cr Clr Drug Dosing 92.1 Est GFR ( Amer) 115.2 Est GFR (Non-Af Amer) 99.4 BUN/Creatinine Ratio 14.0 Glucose 151 H Calcium 9.4 Magnesium 2.4 Troponin I High Sens 10.3 D 10.2 08/27/22 17:00 WBC RBC Hgb Hct MCV MCH MCHC RDW Std Deviation RDW Coeff of Riana Plt Count MPV Immature Gran % (Auto) Neut % (Auto) Lymph % (Auto) [place] % (Auto) Eos % (Auto) Baso % (Auto) Neut # (Auto) Lymph # (Auto) [place] # (Auto) Eos # (Auto) Baso # (Auto) Immature Gran # (Auto) Toxic Vacuolation Sodium Potassium Chloride Carbon Dioxide Anion Gap BUN Creatinine Est Cr Clr Drug Dosing Est GFR ( Amer) Est GFR (Non-Af Amer) BUN/Creatinine Ratio Glucose Calcium Magnesium Troponin I High Sens 9.7 Diagnostic Findings Chest X-Ray 08/26/22 16:25 SINGLE VIEW CHEST CLINICAL HISTORY: Atypical chest pain. Left-sided chest wall pain. FINDINGS: An AP, portable, upright chest radiograph is obtained. No prior studies are available for comparison at the time of dictation. The examination is degraded by portable technique and patient rotation. The heart is top normal for projection noting atherosclerotic calcification of the thoracic aorta. Nonspecific interstitial thickening is likely chronic. There is bibasilar scarring/atelectasis. The lungs and pleural spaces are otherwise clear. No pneumothorax is seen. The skeletal structures are osteopenic. There are acute appearing left-sided rib fractures (likely at least the 6th and 7th ribs). IMPRESSION: 1. No acute cardiopulmonary abnormality. 2. There are several acute appearing left-sided rib fractures. Correlate for point tenderness. ACT 112: Negative or not required by law. Electronically signed by: Nathan Simeon M.D. 08/26/2022 5:07 PM Chest CTA 08/26/22 16:26 CT ANGIOGRAPHY OF THE CHEST, PULMONARY EMBOLUS PROTOCOL CLINICAL HISTORY: Left rib/chest pain, eval PE COMPARISON STUDY: Chest radiograph performed earlier today. TECHNIQUE: Following IV administration of Optiray, helical axial images of the chest were obtained utilizing the pulmonary embolus protocol. Maximal intensity projections and sagittal and coronal reformats were viewed on an independent 3D workstation. IV contrast was administered without complication. Automated exposure control was utilized for the study. A dose lowering technique was utilized adhering to the principles of ALARA. FINDINGS: No pulmonary emboli are identified. There is no thoracic aortic dissection. There is a prominent left supraclavicular lymph node on image 268 of 303 that measures 0.9 x 0.8 cm. There is bilateral hilar and mediastinal lymphadenopathy. Index subcarinal node measures 2.6 x 1.9 cm. Index right hilar node measures 1.6 x 1.5 cm. A 1.1 cm nodular density within the superior right breast is present this may represent breast tissue. There is no axillary lymphadenopathy. The size of the heart is normal. There is no pericardial effusion. There are mildly enlarged cardiophrenic angle nodes as well as mildly enlarged retrocrural lymph nodes. No pneumothorax or pleural effusion is present. There is no consolidation to suggest pneumonia. There is moderate emphysema. There is a spiculated 1.5 cm left lung apex nodule on image 266 of 303. A 1.4 x 1.1 cm right lower lobe lesion with occlusion of the associated segmental bronchus could reflect an enlarged lymph node or a pulmonary nodule. Multiple skeletal lesions with soft tissue extension are noted. These include lesions of the left fifth, sixth and seventh ribs with associated pathologic fractures of the sixth and seventh ribs. Multiple lytic lesions within the T8 vertebral body are noted with associated sclerosis. There is slight loss of height of the T8 vertebral body without well-defined fracture. There is suspected mild epidural extension of tumor which is suboptimally assessed by either slight retropulsion at the level of the superior endplate. Associated paravertebral soft tissue extension is noted. Abdomen and pelvis CT will be reported separately. IMPRESSION: 1. No pulmonary emboli identified. 2. Mediastinal and bilateral hilar lymphadenopathy, as described above. In addition multiple skeletal lesions, including lesions within the T8 vertebra with mild epidural extension of tumor and paravertebral extension, as described above. Associated pathologic fractures of left sixth and seventh ribs. The findings are consistent with a neoplastic etiology and favor metastatic disease. Lymphoma is within the differential but considered less likely. 3. Spiculated 1.5 cm left lung apex nodule. This is suspicious for a primary lung malignancy although its unclear if the skeletal and batsheva metastases are related to this lesion. Pulmonary consultation is recommended. 4. Emphysema. 5. Indeterminate but low suspicion right breast nodule. ACT 112: Positive. There are findings on this exam that require communication between the performing entity and the patient following Patient Test Result Information Act ([place] Act 112) guidelines. Electronically signed by: Matt Marsh M.D. 08/26/2022 7:00 PM Abdomen/Pelvis CT 08/26/22 16:31 CT OF THE ABDOMEN AND PELVIS WITH CONTRAST CLINICAL HISTORY: Left flank/abdomen pain. COMPARISON STUDY: None. TECHNIQUE: Following IV administration of 112 mL of Optiray, axial images of the abdomen and pelvis were obtained from the lung bases to the proximal femurs. Images were reviewed in the axial, sagittal, and coronal planes. IV contrast was administered without complication. Automated exposure control was utilized for the study. A dose lowering technique was utilized adhering to the principles of ALARA. FINDINGS: Chest CT will be reported separately. This better depicts thoracic lymphadenopathy as well as suspected pleural metastasis within the left hemithorax with associated bony involvement. No pneumatosis, free air or portal venous gas is present. There is hepatic steatosis. No suspicious hepatic lesions are present. There is no biliary or pancreatic ductal dilatation. The spleen, adrenal glands and pancreas are unremarkable. Bilateral renal calculi measure up to 5 mm. There are no ureteral calculi. There is no hydronephrosis. There is no evidence for a bowel obstruction. Sigmoid diverticulosis is present. There is no evidence for acute diverticulitis. There is no abdominal or pelvic lymphadenopathy. Major vasculature is patent. No acute fracture or suspicious lesion is identified within the pelvis, hips or lumbar spine. IMPRESSION: 1. No acute process within the abdomen or pelvis. 2. Thoracic lymphadenopathy and pleural metastases within the left hemithorax with associated bony involvement better depicted on the chest CT. Please see that report for further description. 3. Bilateral nephrolithiasis. No ureteral calculi or hydronephrosis. ACT 112: Negative or not required by law. Electronically signed by: Matt Marsh M.D. 08/26/2022 7:[address] 08/26/22 16:38 CT thoracic spine w con CLINICAL HISTORY: back pain, recent nerve block COMPARISON STUDY: No previous studies for comparison. TECHNIQUE: Axial images of the thoracic spine were obtained. Sagittal and coronal reconstructions were viewed. Automated exposure control was utilized for the study. A dose lowering technique was utilized adhering to the principles of ALARA. FINDINGS: Please note that the chest CT will be reported separately. There is emphysema. A spiculated 1.5 cm left apical pulmonary nodule is present. Mediastinal and bilateral hilar lymphadenopathy is noted. Pleural/rib lesions are noted within the left hemithorax. Lytic lesions within T8 vertebral body are noted with mild loss of height and is associated sclerosis. There is mild retropulsion at the level of the superior endplate. In addition, there is epidural extension of tumor at the T8 level. This is suboptimally assessed by CT technique but appears to result in mild central canal stenosis. No additional sites of epidural extension are noted. Associated soft tissue extension is present. Severe narrowing of the left T8-T9 neural foramen is noted. There is also suspected narrowing of the left T7-T8 neural foramen. IMPRESSION: Multiple lytic lesions within the T8 vertebral body with mild loss of vertebral body height. Although suboptimally assessed by CT, mild epidural extension of tumor which results in suspected mild central canal stenosis. Associated paravertebral tumor and left-sided neural foraminal narrowing, as above. Findings are highly suggestive of metastatic disease. Although not definitive, the potential primary is within the left lung apex given multiple suspected batsheva and left pleural metastases. ACT 112: Negative or not required by law. Electronically signed by: Matt Marsh M.D. 08/26/2022 7:10 PM Cervical Spine MRI 08/27/22 00:55 MRI OF THE CERVICAL SPINE COMBO CLINICAL HISTORY: Back pain. Metastatic disease. COMPARISON STUDY: No priors. TECHNIQUE: MRI of the cervical spine is performed utilizing various T1 and T2- weighted sequences in the axial and sagittal planes. Contrast enhanced sequences are acquired following the IV administration of 6 cc of Gadavist. The examination is significantly compromised by motion artifact. FINDINGS: Cervical spine: Vertebral body height and alignment are maintained throughout the cervical spine. Marrow signal intensity is heterogeneous. There is straightening of the cervical lordosis. Anterior osteophytes are seen throughout. The atlantodental articulation is maintained. The spinous processes appear intact. Chronic degenerative endplate changes is seen at several levels, greatest at C4-C5. No destructive or enhancing bony lesion is seen in the cervical spine. There is evidence of metastatic disease in the thoracic spine seen on the supervisor compounding and finishing sequence. Intervertebral discs: Degenerative disc desiccation and loss of height is seen throughout the cervical spine. Loss of height is moderate to severe at C4-C5, C5-C6, and C6-C7. Spinal cord and central canal: The cervical cord is normal in morphology and signal intensity with no abnormal postcontrast enhancement identified. There is no evidence of enhancing epidural tumor. C2-C3: A posterior disc osteophyte complex effaces the ventral subarachnoid space. Predominantly facet arthropathy is of no consequence. The neural foramina are patent. C3-C4: A posterior disc osteophyte complex effaces the ventral cord. The minimum AP canal diameter at this level measures up to 5 mm. Uncovertebral and facet arthropathy contribute to moderate left and mild right neural foraminal stenosis. C4-C5: A posterior disc osteophyte complex eccentric to the left effaces the ventral cord. There is left lateral disc bulge. In conjunction with facet arthropathy there is severe left neural foraminal stenosis with impingement on the exiting left C5 nerve root. Uncovertebral and facet arthropathy contribute to moderate neural foraminal narrowing on the right. C5-C6: A posterior disc osteophyte complex effaces the ventral cord. Lateral disc bulges and facet arthropathy contribute to severe bilateral neural foraminal stenosis. There is likely impingement on the exiting bilateral C6 nerve roots. C6-C7: Posterior disc osteophyte complex abuts the ventral cord. Uncovertebral and facet arthropathy contribute to severe left and moderate to severe right neural foraminal stenosis. There may be impingement on the exiting left C7 nerve root. C7-T1: Unremarkable. Soft tissues: The prevertebral and paraspinous soft tissues are normal as visualized. Brain parenchyma: The imaged brain parenchyma at the skull base is within normal limits. IMPRESSION: 1. Significantly motion compromised examination. 2. There is no MRI evidence of metastatic disease in the cervical spine. 3. Thoracic spinal metastatic disease is seen on the supervisor compounding and finishing sequence. 4. The cervical cord is normal in morphology and signal intensity. 5. Multilevel cervical spondylosis as above. See discussion for detailed level by level analysis. Dictated: 08/27/2022 8:58 AM Transcribed: 08/27/2022 9:17 AM Audra [id number] [email or web address]_Ana Electronically signed by: Nathan Simeon M.D. 08/27/2022 10:16 AM Lumbar Spine MRI 08/27/22 00:55 LUMBAR SPINE MRI WITH AND WITHOUT CONTRAST HISTORY: back pain. mets TECHNIQUE: Multiplanar multisequence MRI of the lumbar spine was performed both before and after the intravenous administration of contrast. COMPARISON: Abdomen and pelvis CT 08/26/2022. FINDINGS: For the purpose of the report the L5-S1 disc space will be located on axial image 23 of 25. There is a 12 mm T2 hyperintense enhancing lesion within the anterior aspect of the L1 vertebral body consistent with metastatic disease. No additional metastatic lesions identified within the lumbar spine. The conus terminates at the L1 level. Vertebral soft tissues are unremarkable. No epidural soft tissue extension identified. There is severe disc space narrowing at L2-L3 and L5-S1. There is mild disc space narrowing at L3-L4 and L4-5. The visualized sacrum appears intact. No fracture or subluxation. Broad-based posterior disc bulges at L2-L3, L3-L4, L4-5, and L5-S1 resulting in [id number] central canal n arrowing. This is most pronounced at the L4-5 level. IMPRESSION: 1. A 12 mm metastatic focus within the anterior aspect of the L1 vertebral body. No epidural or paraspinal soft tissue extension. 2. No fracture or subluxation. 3. Degenerative changes as described above. ACT 112: Negative or not required by law. Electronically signed by: Robinson Moody M.D. 08/27/2022 8:20 AM Thoracic Spine MRI 08/27/22 00:55 THORACIC SPINE MRI WITH AND WITHOUT CONTRAST HISTORY: severe back pain. mets TECHNIQUE: Multiplanar multisequence MRI of the thoracic spine was performed both before and after the intravenous administration of contrast. COMPARISON: Chest CTA 08/26/2022. FINDINGS: Scattered T2 hyperintense, T1 hypointense enhancing lesions within the thoracic spine most pronounced from the T6-T9 levels and centered at the T8 level. The T8 level is completely replaced by enhancing mass which demonstrates soft tissue extension into both the paravertebral and epidural space at this location. The epidural extension at the T7/T8 level measures up to 4 mm in thickness and results in mild central canal narrowing. This abuts but does not displace the spinal cord at this level. There is left greater than right paravertebral extension measuring a maximal thickness of 2.3 cm. Left paravertebral soft tissue extension is seen from the T6-T9 level. Left-sided rib fractures are better appreciated on the same day chest CTA. Mediastinal and bilateral hilar lymphadenopathy is again noted. No definite fracture or subluxation within the thoracic spine. Mild degenerative disease throughout the thoracic spine. Soft tissue extension is also seen within the left T8-T9 neural foramen and results in severe neural foraminal narrowing at this level. There is moderate left-sided neural foraminal narrowing at T7-T8 due to the soft tissue tumor. Soft tissue tumor seen along the right T7-T8 and T8-T9 neural foramen also resulting in neural foraminal narrowing. IMPRESSION: 1. Multifocal osseous metastatic disease within the thoracic spine centered at the T8 level which demonstrates both epidural and paraspinal soft tissue extension as described above. This results in mild central canal narrowing at this level. There is also bilateral neural foraminal narrowing at T7-T8 and T8- T9 due to the tumor extension. 2. No definite acute fractures within the thoracic spine. 3. The left rib fractures are better appreciated on the same day chest CT. 4. Mediastinal and bilateral hilar lymphadenopathy is again noted. ACT 112: Negative or not required by law. Electronically signed by: Robinson Moody M.D. 08/27/2022 8:16 AM PG Care Time/CCT Total # of Minutes Spent Total Time Spent with Patient: Total time spent is greater than 50% in coordination of care (as documented) at patient's floor/unit and/or counseling patient: Coding Level of Care Code New Pt INP/OBS CONSULT LVL 3, 45 MIN Patient Type New History Expanded Problem Focused Exam Problem Focused Medical Decision Making Moderate Complexity Diagnoses Breast nodule N63.0 Metastatic cancer C79.9 Hypercalcemia E83.52
--- NOTE | 2022-08-28 07:47 | Pulmonology Progress Note ---
Date of Service August 28, 2022 Assessment & Plan (1) Pathological fracture of rib of left side: (2) Multiple pulmonary nodules: (3) LAD (lymphadenopathy), mediastinal: (4) COPD with emphysema: Plan CT chest 08/26/2022 personally reviewed: Centrilobular emphysema appreciated bilaterally, left upper lobe spiculated pulmonary nodule 1.5 cm Right lower lobe 1.4 cm pulmonary nodule Subcarinal lymphadenopathy -- Multiple pulmonary nodules with mediastinal lymphadenopathy With mets to the spine and the ribs Primary seems to be lung. COVID-19 NAAT negative -- COPD with emphysema Not on any inhalers at home We will start the patient on Anoro to be used on a daily basis Plan: For navigational bronchoscopy with EBUS tomorrow Keep the patient n.p.o. postmidnight Avoid heparin or Lovenox Start the patient on Anoro to be used on a daily basis Patient will benefit from MRI of the brain Case discussed with Dr. Blackman Please note the above document was generated using voice recognition software. It may contain grammatical, syntax or spelling errors.Any formal questions or concerns about the content, text or information contained within the body of this dictation should be directly addressed to the provider for clarification. Admission and Anticipated Discharge Date Admission Date: August 26, 2022 Subjective Patient seen and examined at bedside. No acute distress, overnight patient had bouts of confusion Patient was little bit somnolent at the time of examination She stated that she is feeling better when it comes to her pain because she is getting the pain medication Denies any issues when he comes to her breathing No headache, no blurry vision Review of Systems Review of Systems: All systems reviewed & are unremarkable except as noted in Subjective Physical Exam Physical Exam: Constitutional: In distress secondary to pain HEENT: EOMI, PERRLA Respiratory system: Decreased air entry bilaterally, no wheeze, no rhonchi, posi tive crackles bilateral lower lobes CVS: S1-S2 positive, no murmurs or gallops Abdomen: Soft, nontender, nondistended, positive bowel sounds x4 Extremities: +2 pulses bilaterally radialis/ dorsalis pedis, no cyanosis, no edema Neuro: Somnolent, oriented to self Psych: Normal mood and affect G/U: No Suggs Skin: no rashes, warm and dry Lymphatic: no cervical or axillary lymphadenopathy Results & Data Results & Data ([facility]) Vital Signs (Past 12 Hours) Vital Signs Temp Pulse Pulse Resp BP Pulse Ox O2 Del Method 08/28/22 03:23 37.2 C 117 H 18 129/72 94 Room Air 08/27/22 23:56 111 H 08/27/22 22:49 36.9 C 113 H 16 125/76 95 Room Air Laboratory Results 08/27/22 06:18 08/27/22 06:18 PG Care Time/CCT Total # of Minutes Spent Total Time Spent with Patient: Total time spent is greater than 50% in coordination of care (as documented) at patient's floor/unit and/or counseling patient: Coding Level of Care Code 20479 SUB INP/OBS CARE 2/35MIN Diagnoses Pathological fracture of rib of left side M84.48XA Multiple pulmonary nodules R91.8 LAD (lymphadenopathy), mediastinal R59.0 COPD with emphysema J43.9
[2022-08-28] MEDS: GABAPENTIN 300 MG CAP PO SCH (08:41)
[2022-08-28] MEDS: LORATADINE 10 MG TAB PO SCH (08:41)
[2022-08-28] MEDS: UMECLIDINIUM/VILANTEROL 62.5/25MCG 7 PUFFS/INHALER INH SCH (08:41)
[2022-08-28] MEDS: FOLIC ACID 1 MG TAB PO SCH (08:41)
[2022-08-28] MEDS: THIAMINE HCL 50 MG TABLET PO SCH (08:41)
[2022-08-28] MEDS: lisinopril 10 MG TAB PO SCH (08:41)
[2022-08-28] MEDS: BACLOFEN 10 MG TAB PO SCH (08:41)
[2022-08-28 10:00] LABS: Basophils # (auto) 0.05 K/uL (0-0.2); Basophils % (auto) 0.3 %; Hematocrit (blood only) 38.5 % (37.0-47.0); Hemoglobin 13.5 g/dl (12.0-16.0); Immature Granulocytes # (auto) 0.07 K/uL (0.01-0.20); Immature Granulocytes % (auto) 0.4 %; Lymphocytes # (auto) 1.34 K/uL (1.2-3.4); Lymphocytes % (auto) 7.5 %; Mean Corpuscular Hemoglobin 34.4 pg (25.0-34.0); Mean Corpuscular Hgb Conc 35.1 g/dL (32.0-36.0); Mean Corpuscular Volume 98.2 fL (80.0-100.0); Mean Platelet Volume 10.1 fL (9.4-12.4); Monocytes # (auto) 1.95 K/uL (0.11-0.59); Neutrophils # (auto) 14.37 K/uL (1.40-6.50); Neutrophils % (auto) 80.8 %; Platelet Count 353 K/uL (130-400); RDW Coefficient of Variation 12.7 % (11.5-14.5); RDW Standard Deviation 45.9 fL (36.4-46.3); Red Blood Count 3.92 M/uL (4.20-5.40); White Blood Count 17.78 K/ul (4.8-10.8)
[2022-08-28 10:25] LABS: Creatinine Clr Calc Pharmacy 114.1 ml/min; Est GFR (African American) 123.6 ml/min; Est GFR (Non-African American) 106.6 ml/min
[2022-08-28 10:26] LABS: BUN Creatinine Ratio 10.9 (10-20); Bilirubin,Total 0.5 mg/dl (0.2-1.0); Calcium 8.3 mg/dl (8.5-10.1); Globulin 3.1 gm/dl (2.5-4.0); Potassium 2.8 mmol/L (3.5-5.1); Total Protein 6.1 gm/dl (6.0-8.3)
--- NOTE | 2022-08-28 10:37 | Pain Management Progress Note ---
Date of Service August 28, 2022 Assessment & Plan (1) Pathological fracture of rib of left side: (2) Lesion of thoracic vertebra: (3) Bone metastasis: Plan 1. Continue Oxycodone 10mg x 4 hours 2. Continue Baclofen 10mg TID 3. Gabapentin will remain at 300mg, 300mg, 900mg daily 4. Hydromorphone 0.5mg x 4 hours PRN breakthrough pain 5. Nothing to offer interventionally. 6. Continue Lidocaine patch Thank you for the consultation. Please contact with any questions or concerns. Admission and Anticipated Discharge Date Admission Date: August 26, 2022 Subjective This is a 61-year-old female With thoracic back pain as well as left-sided rib pain. She was found to have bone metastasis in the spine which is likely lung as the primary etiology. Yesterday the Oxycodone dose was increased to 10mg x 4 hours, Robaxin was switched to Baclofen, and IV Dilaudid remains PRN breakthrough pain. Patient states that her pain is currently 2/10 and she is p leased with her results. She has been able to sleep without difficulty. She has been able to move around more easily. No constipation, confusion. No complaints. Physical Exam Physical Exam: GENERAL: This is a 61 year old female that does not appear in any acute distress. + slightly drowsy. HEAD/FACE: Normocephalic and atraumatic. EYES: No drainage or conjunctival injection. ENT: Nose without bleeding or discharge. Oral mucosa moist. NECK: Full ROM without apparent pain. No swelling or masses noted. RESPIRATORY: Patient with unlabored breathing. No signs of respiratory distress. CHEST/AXILLA: Chest movement symmetrical. No deformities noted. ABDOMEN/GI: No distension BACK: Moves without difficulty SKIN: [place], warm and dry. No rash noted. MS/EXTREMITY: No swelling, no deformities. Moving extremities appropriately. NEURO: Alert and appears oriented. Speech is fluent. Cranial Nerves are grossly intact. PSYCH: Alert, pleasant, affect is calm
--- NOTE | 2022-08-28 12:45 | Hospitalist Progress Note ---
Date of Service August 28, 2022 Assessment & Plan (1) Multiple pulmonary nodules: (2) Bone metastasis: Plan: per admitting service notes with addendum: ASSESSMENT AND PLAN: This is a 61-year-old female, who presents with severe back pain, going on for a year, had endoscopic decompression of thoracic spine in [place] in January and also recently had nerve block of the thoracic spine, comes with worsening pain and found to have possible metastatic disease. 1.Pulmonary Nodule, suspicious for Cancer possible mets to T8, L 6-7th ribs Severe back pain, thoracic spine pain and left ribcage pain: Imaging studies show 1.5-cm left lung apex nodule, pathological fracture of the left 6th and 7th ribs, multiple skeletal lesions including lesions in the T8 vertebra with mild epidural extension of the tumor and paravertebral extension.Pain control iv dilaudid p.r.n. and oxycodone p.r.n. We will keep her n.p.o. from midnight. Pulmonary consult. We will give a dose of soulmedrol. Will get mri of spine.. May discuss with hem/onc and radiation oncology in the a.m. -- Pulmonology: for EBUS today Pain management: recommendations noted patient observed by RN to be very drowsy, unstable when ambulating to the bathroom- requiring assistance HOLD narcotics, Gabapenting, Baclofen re-assess in the afternoon may need to reduce doses of pain meds 2. History of hypertension: Continue lisinopril. 3. Gastroesophageal reflux disease: Continue omeprazole. 4. History of depression. QTC 475 5. Hypokalemia: replacing 6. Hyponatremia: Sodium 129 possibly siadh from malignancy, also poor oral intake. Getting D5 normal saline. We will also follow urine osmolality, serum osmolality, and urine sodium levels. If not improving, we will consult nephrology. Na 131 - 135 7. Leukocytosis improving BC negative so far 8. Mild hypercalcemia resolved 9. Mild elevation of troponin, mostly demand ischemia: resolved 9. Ongoing tobacco abuse: Needs counseling. Nicotine patch for now. 10. Alcoholism: The patient says she drinks 2 glasses of whiskey daily, but she thinks she wont go through withdrawal. We will place on thiamine, folic acid, and IV Ativan p.r.n. for now. DVT px scds for now. DISPOSITION: anticipate d/c home when medically stable Admission and Anticipated Discharge Date Admission Date: August 26, 2022 Subjective ff up for pulmonary nodule, possible mets to T8 and L ribs, etc seen resting in bed, comfortable sitting up, awake, oriented, answering questions affect seems to be flat states she feels fine overall denies back or rib pain no chest pain, dyspnea, palpitations, dizziness no other symptoms Review of Systems Review of Systems: all noted and negative except for above Physical Exam Physical Exam: General- oriented x 3, not in distress, speaks in sentences with no effort or accessory muscle use Eyes- anicteric Neck- no JVD Lungs- clear breath sounds bilaterally, no rales/wheezes mild pain L lower rib area Heart- normal rate, regular rhythm; no murmurs Abdomen- normal bowel sounds, nondistended, soft, nontender Extremities- no pretibial edema, no calf tenderness Neuro- alert, oriented x 3; no gross focal neurologic deficits Skin- warm & dry Results & Data Results & Data ([facility]) Vital Signs (Past 12 Hours) Vital Signs Temp Pulse Pulse Resp BP Pulse Ox O2 Del Method 08/28/22 11:34 36.7 C 111 H 19 102/66 97 Room Air 08/28/22 09:36 Room Air 08/28/22 07:59 37.2 C 112 H 20 106/65 95 Room Air 08/28/22 07:56 106 H 08/28/22 03:23 37.2 C 117 H 18 129/72 94 Room Air all noted and reviewed including below
[2022-08-28] MEDS ORDERED: POTASSIUM CHLORIDE CRTAB 20 MEQ TABCR PO STA (12:46)
[2022-08-28] MEDS: POTASSIUM CHLORIDE / WTR 10 MEQ/100 ML PLCT IV SCH ×4 (12:56→16:18)
[2022-08-28] MEDS: ACETAMINOPHEN 325 MG TAB PO PRN ×2 (16:20→22:55)
[2022-08-28 16:34] LABS: Appearance Urine Clear (Clear); Bilirubin Urine Negative (Negative); Blood Urine Negative (Negative); Color Urine Yellow; Glucose Urine UA Negative (Negative); Ketones Urine Negative (Negative); Leukocyte Esterase Urine Negative (Negative); Nitrite Urine Negative (Negative); Protein Urine Negative (Negative); Specific Gravity Urine 1.005 (1.000-1.030); Urobilinogen Urine Negative (Negative); pH Urine 7.5 (4.5-7.5)
[2022-08-28] MEDS: LORazepam 2 MG/1 ML VIAL IV PRN ×2 (17:43→22:54)
[2022-08-28] MEDS ORDERED: oxyCODONE HCL IR 5 MG TAB (IMMEDIATE RELEASE) PO STA (20:14)
[2022-08-28] MEDS ORDERED: KETOROLAC TROMETHAMINE 15 MG/ML VIAL IV ONE (20:15)
[2022-08-28] MEDS: LIDOCAINE 5% 1 PATCH TD SCH (20:26)
[2022-08-29] MEDS: D5W AND NSS 1,000 ML IV SCH (01:51)
[2022-08-29] MEDS ORDERED: KETOROLAC TROMETHAMINE 15 MG/ML VIAL IV STA (03:53)
[2022-08-29] MEDS: LORazepam 2 MG/1 ML VIAL IV PRN ×2 (04:03→22:39)
[2022-08-29] MEDS: PANTOprazole 40 MG TAB PO SCH (04:47)
[2022-08-29] MEDS: oxyCODONE HCL IR 5 MG TAB (IMMEDIATE RELEASE) PO PRN ×3 (06:13→20:27)
--- NOTE | 2022-08-29 07:54 | Pulmonology Progress Note ---
Date of Service August 29, 2022 Assessment & Plan (1) Pathological fracture of rib of left side: (2) Multiple pulmonary nodules: (3) LAD (lymphadenopathy), mediastinal: (4) COPD with emphysema: Plan CT chest 08/26/2022 personally reviewed: Centrilobular emphysema appreciated bilaterally, left upper lobe spiculated pulmonary nodule 1.5 cm Right lower lobe 1.4 cm pulmonary nodule Subcarinal lymphadenopathy -- Multiple pulmonary nodules with mediastinal lymphadenopathy With mets to the spine and the ribs Primary seems to be lung. COVID-19 NAAT negative -- COPD with emphysema Not on any inhalers at home Continue with Anoro daily basis Plan: For navigational bronchoscopy with EBUS today BMP stat to make sure potassium is within normal limit Patient will benefit from MRI of the brain Case was discussed with nurse at bedside Please note the above document was generated using voice recognition software. It may contain grammatical, syntax or spelling errors.Any formal questions or concerns about the content, text or information contained within the body of thi s dictation should be directly addressed to the provider for clarification. Admission and Anticipated Discharge Date Admission Date: August 26, 2022 Subjective Patient seen and examined at bedside. No acute distress, no adverse events overnight Patient was more alert and awake today. Answering all the questions appropriately Denied any chest pain, no shortness of breath No cough. Her pain is better controlled. She did complain of being anxious about everything. Review of Systems Review of Systems: All systems reviewed & are unremarkable except as noted in Subjective Physical Exam Physical Exam: Constitutional: In distress secondary to pain HEENT: EOMI, PERRLA Respiratory system: Decreased air entry bilaterally, no wheeze, no rhonchi, positive crackles bilateral lower lobes CVS: S1-S2 positive, no murmurs or gallops Abdomen: Soft, nontender, nondistended, positive bowel sounds x4 Extremities: +2 pulses bilaterally radialis/ dorsalis pedis, no cyanosis, no edema Neuro: Somnolent, oriented to self Psych: Normal mood and affect G/U: No Suggs Skin: no rashes, warm and dry Lymphatic: no cervical or axillary lymphadenopathy Results & Data Results & Data ([facility]) Vital Signs (Past 12 Hours) Vital Signs Pulse Pulse Resp BP Pulse Ox O2 Del Method 08/29/22 07:45 114 H 17 154/83 H 94 Room Air 08/28/22 23:30 101 H Laboratory Results 08/28/22 09:13 08/28/22 09:13 PG Care Time/CCT Total # of Minutes Spent Total Time Spent with Patient: Total time spent is greater than 50% in coordination of care (as documented) at patient's floor/unit and/or counseling patient: Coding Level of Care Code 89768 SUB INP/OBS CARE 2/35MIN Diagnoses Pathological fracture of rib of left side M84.48XA Multiple pulmonary nodules R91.8 LAD (lymphadenopathy), mediastinal R59.0 COPD with emphysema J43.9
[2022-08-29] MEDS: lisinopril 10 MG TAB PO SCH (08:35)
[2022-08-29] MEDS: THIAMINE HCL 50 MG TABLET PO SCH (08:35)
[2022-08-29] MEDS: FOLIC ACID 1 MG TAB PO SCH (08:35)
[2022-08-29] MEDS: LORATADINE 10 MG TAB PO SCH (08:35)
[2022-08-29] MEDS: UMECLIDINIUM/VILANTEROL 62.5/25MCG 7 PUFFS/INHALER INH SCH (08:36)
--- NOTE | 2022-08-29 08:57 | Hospitalist Progress Note ---
Date of Service August 29, 2022 Assessment & Plan (1) COPD with emphysema: (2) Metastatic cancer: (3) Multiple pulmonary nodules: (4) Pathological fracture of rib of left side: Plan: (1) Multiple pulmonary nodules: (2) Bone metastasis: Plan: per admitting service notes with addendum: ASSESSMENT AND PLAN: This is a 61-year-old female, who presents with severe back pain, going on for a year, had endoscopic decompression of thoracic spine in [place] in January and also recently had nerve block of the thoracic spine, comes with worsening pain and found to have possible metastatic disease. 1.Pulmonary Nodule, suspicious for Cancer possible mets to T8, L 6-7th ribs Severe back pain, thoracic spine pain and left ribcage pain: Imaging studies show 1.5-cm left lung apex nodule, pathological fracture of the left 6th and 7th ribs, multiple skeletal lesions including lesions in the T8 vertebra with mild epidural extension of the tumor and paravertebral extension.Pain control iv dilaudid p.r.n. and oxycodone p.r.n. We will keep her n.p.o. from midnight. Pulmonary consult. We will give a dose of soulmedrol. Will get mri of spine.. May discuss with hem/onc and radiation oncology in the a.m. -- Pulmonology: for EBUS today Pain management: recommendations noted patient observed by RN to be very drowsy, unstable when ambulating to the bathroom- requiring assistance HOLD narcotics, Gabapenting, Baclofen re-assess in the afternoon may need to reduce doses of pain meds 2/9 more awake reporting generalized pain resume Oxycodone but on 5mg q6h resume Gabapentin hold Baclofen for now encouraged Incentive Spirometry use 2. History of hypertension: Continue lisinopril. 3. Gastroesophageal reflux disease: Continue omeprazole. 4. History of depression. QTC 475 5. Hypokalemia: K pending 6. Hyponatremia: Sodium 129 possibly siadh from malignancy, also poor oral intake. Getting D5 normal saline. We will also follow urine osmolality, serum osmolality, and urine sodium levels. If not improving, we will consult nephrology. Na 131 - 135 7. Leukocytosis improving BC negative so far 8. Mild hypercalcemia resolved 9. Mild elevation of troponin, mostly demand ischemia: resolved 9. Ongoing tobacco abuse: Needs counseling. Nicotine patch for now. 10. Alcoholism: Alcohol withdrawal score 7 --> 4 on PRN Ativan already on Gabapentin TID Thiamine, Folate monitor closely DVT px scds for now. DISPOSITION: anticipate d/c home when medically stable Admission and Anticipated Discharge Date Admission Date: August 26, 2022 Subjective ff up for pulmonary nodule, etc seen resting in bed, awake alert, oriented x 3, not in distress states she is having pain "everywhere" no dyspnea, chest pain, palpitations, dizziness no other symptoms Review of Systems Review of Systems: all noted and negative except for above Physical Exam Physical Exam: General- oriented x 3, not in distress, speaks in sentences with no effort or accessory muscle use Eyes- anicteric Neck- no JVD Lungs- clear breath sounds bilaterally, no rales/wheezes (+) tenderness L lower ribs Heart- normal rate, regular rhythm; no murmurs Abdomen- normal bowel sounds, nondistended, soft, nontender Extremities- no pretibial edema, no calf tenderness Neuro- alert, oriented x 3; no gross focal neurologic deficits Skin- warm & dry Results & Data Results & Data ([facility]) Vital Signs (Past 12 Hours) Vital Signs Pulse Pulse Resp BP Pulse Ox O2 Del Method 08/29/22 07:45 114 H 17 154/83 H 94 Room Air 08/28/22 23:30 101 H all noted and reviewed including below
[2022-08-29] MEDS ORDERED: SODIUM CHLORIDE 0.9% 1000ML 1,000 ML IV SCH (09:00)
[2022-08-29 09:10] LABS: BUN Creatinine Ratio 10.5 (10-20); Calcium 8.4 mg/dl (8.5-10.1); Creatinine Clr Calc Pharmacy 138.1 ml/min; Est GFR (African American) 131.6 ml/min; Est GFR (Non-African American) 113.5 ml/min; Potassium 3.2 mmol/L (3.5-5.1)
[2022-08-29] MEDS: GABAPENTIN 300 MG CAP PO SCH ×2 (10:16→16:50)
[2022-08-29] MEDS: POTASSIUM CHLORIDE / WTR 10 MEQ/100 ML PLCT IV SCH ×6 (10:19→18:29)
[2022-08-29] MEDS ORDERED: POTASSIUM CHLORIDE CRTAB 20 MEQ TABCR PO STA (11:38)
[2022-08-29] MEDS ORDERED: POTASSIUM CHLORIDE / WTR 10 MEQ/100 ML PLCT IV SCH (11:45)
--- NOTE | 2022-08-29 13:34 | Anesthesiology Consultation ---
Date of Service August 29, 2022 Assessment & Plan Chart Review Chart Review: Acceptable Risk for Surgery Consults Requested none History Surgery Operation Date: 08/27/22 07:40 Proposed Procedures p Bronchoscopy Navigational - Nya Landin MD, [facility] s Endobronchial Ultrasound - Nya Landin MD, [facility] Operation Date: 08/29/22 12:30 Proposed Procedures p Bronchoscopy Navigational with CT Scan - Nya Landin MD, [facility] Height/Weight Height: 5 ft 5 in Weight: 61.4 kg Allergies Allergy/AdvReac Type Severity Reaction Status Date / Time No Known Allergies Allergy Unverified 08/26/22 20:37 Medications Home Medications Medication Instructions Recorded Confirmed Last Taken citalopram 40 mg tablet (Celexa) 40 mg PO QAM 12/19/19 08/26/22 08/26/22 desloratadine 5 mg tablet 5 mg PO QAM 12/19/19 08/26/22 08/26/22 (Clarinex) gabapentin 300 mg capsule 300 mg PO UD 08/26/22 08/26/22 08/26/22 lisinopril 10 mg tablet 10 mg PO QAM 08/26/22 08/26/22 08/26/22 methocarbamol 500 mg tablet 1,000 mg PO Q6 PRN muscle 08/26/22 08/26/22 08/26/22 spasm/discomfort/tension omeprazole 40 mg capsule,delayed 40 mg PO DAILYBB 08/26/22 08/26/22 08/26/22 release tramadol 50 mg tablet 50 - 100 mg PO Q8 PRN pain,severe 08/26/22 08/26/22 08/26/22 Active Medications Generic Name Dose Route Start Last Admin Trade Name Freq PRN Reason Stop Dose Admin Acetaminophen 650 mg 08/27/22 00:55 08/28/22 22:55 Acetaminophen 325 Mg Tab PO 09/26/22 00:54 650 mg Q4H PRN Administration Pain or Fever Baclofen 10 mg 08/27/22 09:00 08/28/22 08:41 Baclofen 10 Mg Tab PO 09/26/22 08:59 10 mg TID MEGHAN Administration Folic Acid 1 mg 08/27/22 09:00 08/29/22 08:35 Folic Acid 1 Mg Tab PO 09/26/22 08:59 1 mg QAM MEGHAN Administration Gabapentin 300 mg 08/27/22 09:00 08/29/22 10:16 Gabapentin 300 Mg Cap PO 09/26/22 08:59 300 mg 0900,1400 MEGHAN Administration Sodium Chloride 1,000 mls @ 80 mls/hr 08/29/22 09:00 08/29/22 10:13 Nss 1000ml IV 09/28/22 08:59 80 mls/hr .[id number] MEGHAN Administration Potassium Chloride 10 meq in 100 mls @ 100 mls/hr 08/29/22 09:45 08/29/22 10:19 K Juan / Wtr IV 08/29/22 13:44 100 mls/hr Q1H MEGHAN Administration Lidocaine 1 patch 08/27/22 21:00 08/28/22 20:26 Lidocaine 5% 1 Patch TD 09/26/22 20:59 1 patch HS MEGHAN Administration Lisinopril 10 mg 08/27/22 09:00 08/29/22 08:35 Lisinopril 10 Mg Tab PO 09/26/22 08:59 10 mg QAM MEGHAN Administration Loratadine 10 mg 08/27/22 09:00 08/29/22 08:35 Loratadine 10 Mg Tab PO 09/26/22 08:59 10 mg QAM MEGHAN Administration Lorazepam 0.5 mg 08/27/22 00:55 08/29/22 04:03 Lorazepam 2 Mg/1 Ml Vial IV 09/26/22 00:54 0.5 mg Q4H PRN Administration Anxiety/Agitation Oxycodone HCl 5 mg 08/29/22 06:06 08/29/22 10:23 Oxycodone Hcl Ir 5 Mg Tab (Immediate Release) PO 09/12/22 06:05 5 mg Q4H PRN Administration Pain Pantoprazole Sodium 40 mg 08/27/22 06:30 08/29/22 04:47 Pantoprazole 40 Mg Tab PO 09/26/22 06:29 Not Given DAILYBB MEGHAN Thiamine HCl 50 mg 08/27/22 09:00 08/29/22 08:35 Thiamine Hcl 50 Mg Tablet PO 09/26/22 08:59 50 mg QAM MEGHAN Administration Umeclidinium/Vilanterol 1 puffs 08/27/22 10:45 08/29/22 08:36 Umeclidinium/Vilanterol 62.5/25mcg 7 Puffs/Inhaler INH 09/26/22 10:44 1 puf fs DAILY MEGHAN Administration NPO Date Last Intake of Fluids: 08/29/22 Time Last Intake of Fluids: 00:00 Date Last Intake of Solids: 08/28/22 Time Last Intake of Solids: 12:00 Past Medical History Medical History (Updated 08/28/22 @ 06:16 by Reginaldo Martinez MD) COPD with emphysema Past Surgical History Surgical History (Updated 08/27/22 @ 09:03 by Jolynn Avina PA-C) H/O breast biopsy Right 01/03/2009 History of laminectomy left T7-8 endoscopic discectomy 02/01/[address] [place] [facility] [place] of tonsillectomy and adenoidectomy 1986 History of total hysterectomy 2007 Social History Smoking Status: Heavy tobacco smoker tobacco type: cigarettes Do You Dip or Chew Tobacco: No Hx Alcohol Use: Yes Alcohol type: hard liquor alcohol intake frequency: 0-2 drinks per day Physical Exam Vital Signs Last Vital Signs Temp 36.6 C 08/29/22 12:00 Pulse 112 H 08/29/22 12:00 Resp 22 08/29/22 12:00 BP 160/98 H 08/29/22 12:00 Pulse Ox 93 08/29/22 12:00 O2 Del Method 08/29/22 12:00 Testing Laboratory Results 08/28/22 09:13 08/29/22 08:27 PT 9.9 Seconds (9.0-12.0) 08/26/22 16:56 INR 0.9 (0.9-1.1) 08/26/22 16:56 APTT 27.2 Seconds (21.0-31.0) 08/26/22 16:56 Urine Color Yellow 08/28/22 16:08 Urine Appearance Clear (Clear) 08/28/22 16:08 Urine pH 7.5 (4.5-7.5) 08/28/22 16:08 Ur Specific [place] 1.005 (1.000-1.030) 08/28/22 16:08 Urine Protein Negative (Negative) 08/28/22 16:08 Urine Glucose (UA) Negative (Negative) 08/28/22 16:08 Urine Ketones Negative (Negative) 08/28/22 16:08 Urine Nitrite Negative (Negative) 08/28/22 16:08 Ur Leukocyte Esterase Negative (Negative) 08/28/22 16:08 Urine WBC (Auto) 1-5 /hpf (0-5) 08/27/22 02:40 Urine RBC (Auto) 0-4 /hpf (0-4) 08/27/22 02:40 U Hyaline Cast (Auto) 1-5 /lpf (0-5) 08/27/22 02:40 U Epithel Cells (Auto) 10-20 /lpf (0-5) H 08/27/22 02:40 Urine Bacteria (Auto) Negative (Negative) 08/27/22 02:40 08/26/22 18:57 Aerobic Blood Culture - Preliminary Blood No growth in Aerobic bottle after 48 hours. Anaerobic Blood Culture - Preliminary No growth in Anaerobic bottle after 48 hours. 08/26/22 18:56 Aerobic Blood Culture - Preliminary Blood No growth in Aerobic bottle after 48 hours. Anaerobic Blood Culture - Final
[2022-08-29] MEDS ORDERED: PROMETHAZINE HCL 12.5 MG in SODIUM CHLORIDE 0.9% 50 ML IV PRN (13:35)
[2022-08-29] MEDS ORDERED: ePHEDrine sulfate 50 MG/ML AMP IV PRN (13:35)
[2022-08-29] MEDS ORDERED: fentaNYL citrate 100 MCG/2 ML VIAL IV PRN (13:35)
[2022-08-29] MEDS ORDERED: HYDROmorphone INJ 2 MG/ML SYR/VIAL IV PRN (13:35)
[2022-08-29] MEDS ORDERED: ATROPINE SULFATE 0.1 MG/ML 10ML SYR IV PRN (13:35)
[2022-08-29] MEDS ORDERED: ONDANSETRON INJ 2 MG/ML 2 ML VIAL IV PRN (13:35)
[2022-08-29] MEDS ORDERED: MIDAZOLAM HCL 1 MG/ML 2ML VIAL ONE (14:01)
[2022-08-29] MEDS ORDERED: PROPOFOL IV EMULSION 10 MG/ML 20 ML VIAL IV ONE (14:01)
[2022-08-29] MEDS ORDERED: LIDOCAINE 2% 2 ML VIAL/AMP(20MG/ML) INFIL ONE (14:01)
[2022-08-29] MEDS ORDERED: ROCURONIUM BROMIDE 10 MG/ML 5 ML VIAL IV ONE (14:01)
[2022-08-29] MEDS ORDERED: fentaNYL citrate 100 MCG/2 ML VIAL ONE (14:01)
[2022-08-29] MEDS ORDERED: PHENYLEPHRINE HCL 10 MG/ML VIAL ONE (14:17)
[2022-08-29] MEDS ORDERED: ONDANSETRON INJ 2 MG/ML 2 ML VIAL ONE (14:17)
[2022-08-29] MEDS ORDERED: LARYING-O-JET KIT (LTA) ONE (14:23)
[2022-08-29] MEDS ORDERED: SUGAMMADEX SODIUM 200 MG/2 ML VIAL IV ONE (14:57)
--- NOTE | 2022-08-29 15:11 | Procedure Note ---
Procedure Note: Bronchoscopy Procedure PREOPERATIVE DIAGNOSIS: Mediastinal lymphadenopathy with multiple pulmonary nodules POSTOPERATIVE DIAGNOSIS: Probable Adenocarcinoma PROCEDURE PERFORMED: EBUS, navigational bronchoscopy with flexible fiberoptic bronchoscopy with bronchoalveolar lavage COMPLICATIONS: None. INDICATION: Rule out malignancy PROCEDURE: After obtaining an informed consent, the patient was brought to the OR. The patient had appropriate oxygen, blood pressure, heart rate, and respiratory rate monitoring applied and monitored continuously throughout the procedure Sedation was managed by anesthesia, please refer to their note The trachea appeared normal.The bronchoscope was then advanced through the jose, which was widened. Secondary jose on the right side was also widened. The scope was then advanced into the right main stem and each segment, subsege ment in the right upper lobe, right middle lobe and right lower lobe were visualized. There were minimal amount of clear secretion which were suctioned out. There were no other findings including evidence of mass, anatomic distortions, or hemorrhage. The bronchoscope was subsequently withdrawn and advanced into the left mainstem. Again, each segment and subsegment was well visualized. No specific masses or other lesions were identified throughout the tracheobronchial tree on the left. There were minimal amount of clear secretions which were suctioned out. Flexible bronchoscope was withdrawn and EBUS was introduced Station 4R, station 7 and 10 R were visualized 4R:-2 passes of multiple sweeps, positive for probable adenocarcinoma 10 R:-6 passes with multiple sweeps, probable adenocarcinoma 7:-5 passes with multiple sweeps, probable adenocarcinoma with necrosis Code[employer] Navigation system was introduced, it was navigated to the right lower lobe nodule which was found to be an anterior segment The bronchoscope was then wedged in the right lower lobe anterior segment and bronchoalveolar lavage samples were obtained. 150 ml of saline was instilled and 30 ml of fluid was aspirated back.The bronchoscope was withdrawn and the area was suctioned clear. The bronchoscope was then wedged in the left upper lobe, apical posterior segment and bronchoalveolar lavage samples were obtained. 120 ml of saline was instilled and 40 ml of fluid was aspirated back.The bronchoscope was withdrawn and the area was suctioned clear. The bronchoscope was then withdrawn to the mainstem. The area was suctioned clear. The bronchoscope was then withdrawn. The patient tolerated the procedure well without evidence of desaturation or complications. Bronchoalveolar lavage samples were sent for cell count, Gram stain and bacterial culture, AFB culture and smear, fungal culture and smear and cytology. Recommendations: Follow-up cytology and pathology Follow-up chest x-ray Please note the above document was generated using voice recognition software. It may contain grammatical, syntax or spelling errors.Any formal questions or concerns about the content, text or information contained within the body of this dictation should be directly addressed to the provider for clarification. [facility] [place] Procedure Codes (Charges) Pulmonary/Thoracic Procedure 1: Pulmonary and Thoracic: 43863 Bronchoscopy, w/EBUS, 3+ mediastinal Procedure 2: Pulmonary and Thoracic: 29962 Navigational Bronchoscopy Procedure 3: Pulmonary and Thoracic: 20297 Dx bronchoscopy/BAL
[2022-08-29] MEDS ORDERED: FUROSEMIDE 40 MG/4 ML VIAL IV ONE (15:30)
--- NOTE | 2022-08-29 15:52 | XRay Report ---
XR chest 1V portable CLINICAL HISTORY: Post Bronchoscopy COMPARISON STUDY: Chest CT August 26, 2022 and August 29, 2022. FINDINGS: There is no pneumothorax post bronchoscopy. Small left and trace right pleural effusions ar e noted. Multiple pathologic left-sided rib fractures are again noted. Asymmetric interstitial thicke robin and mild opacities within the right lung are noted. Cardiomediastinal silhouette is stable. Susp ected old left Hill-Sachs. IMPRESSION: 1. No pneumothorax post thoracostomy. 2. Small left and trace right pleural effusions. 3. Asymmetric interstitial thickening and patchy opacities, greater within the right lung. The findin gs could reflect pulmonary edema or an infectious process. ACT 112: Negative or not required by law. Electronically signed by: Matt Marsh M.D. 08/29/2022 3:51 PM
[2022-08-29 16:32] LABS: Lymphocyte Body Fluid Man 4 %; Neutrophil Body Fluid Man 15 %
[2022-08-29 16:33] LABS: Fluid Mono/Macrophage 81 %
--- NOTE | 2022-08-29 17:43 | Anesthesiology Progress Note ---
Date of Service August 29, 2022 Anesthesia Post Procedure Vital Signs Vital Signs: Temp Pulse Pulse Pulse Resp BP BP 08/29/22 16:47 36.9 C 118 H 18 08/29/22 16:00 117 H 24 99/61 L 08/29/22 15:50 36.5 C 117 H 24 102/80 08/29/22 15:40 118 H 18 110/67 08/29/22 15:30 121 H 26 H 99/66 L 08/29/22 15:21 08/29/22 15:20 116 H 24 107/74 08/29/22 15:14 36.4 C L 112 H 22 123/69 08/29/22 12:00 36.6 C 112 H 22 160/98 H 08/29/22 11:25 37.2 C 122 H 18 157/97 H 08/29/22 07:58 112 H 08/29/22 09:09 08/29/22 07:45 114 H 17 154/83 H 08/28/22 23:30 101 H 08/28/22 19:31 37.1 C 107 H 20 123/76 Pulse Ox O2 Del Method O2 Flow Rate 08/29/22 16:47 93 Nasal Cannula 2 08/29/22 16:00 92 Nasal Cannula 3 08/29/22 15:50 92 Nasal Cannula 3 08/29/22 15:40 92 Nasal Cannula 3 08/29/22 15:30 94 Oxymask 4 08/29/22 15:21 Other 08/29/22 15:20 94 Oxymask 6 08/29/22 15:14 94 Oxymask 10 08/29/22 12:00 93 Room Air 08/29/22 11:25 93 Room Air 08/29/22 07:58 08/29/22 09:09 Room Air 08/29/22 07:45 94 Room Air 08/28/22 23:30 08/28/22 19:31 96 Room Air Pain Intensity Generalized: Pain Intensity: 0 Transfer of Care Handoff Completed per policy Notes Mental Status: alert / awake / arousable Patient Amnestic to Procedure: Yes Nausea / Vomiting: adequately controlled Pain: adequately controlled Airway Patency, RR, SpO2: stable & adequate BP & HR: stable & adequate Hydration State: stable & adequate Anesthetic Complications: no major complications apparent
[2022-08-29 17:51] LABS: BUN Creatinine Ratio 10.9 (10-20); Calcium 8.8 mg/dl (8.5-10.1); Creatinine Clr Calc Pharmacy 114.1 ml/min; Est GFR (African American) 123.6 ml/min; Est GFR (Non-African American) 106.6 ml/min; Potassium 3.3 mmol/L (3.5-5.1)
[2022-08-29] MEDS: LIDOCAINE 5% 1 PATCH TD SCH (20:26)
[2022-08-29] MEDS ORDERED: GABAPENTIN 300 MG CAP PO SCH (21:00)
[2022-08-30] MEDS: oxyCODONE HCL IR 5 MG TAB (IMMEDIATE RELEASE) PO PRN ×4 (00:46→14:26)
[2022-08-30] MEDS: ACETAMINOPHEN 325 MG TAB PO PRN (00:47)
[2022-08-30] MEDS: PANTOprazole 40 MG TAB PO SCH (05:55)
--- NOTE | 2022-08-30 07:49 | Pulmonology Progress Note ---
Date of Service August 30, 2022 Assessment & Plan (1) Pathological fracture of rib of left side: (2) Multiple pulmonary nodules: (3) LAD (lymphadenopathy), mediastinal: (4) COPD with emphysema: (5) Pleural effusion: Plan CT chest 08/26/2022 personally reviewed: Centrilobular emphysema appreciated bilaterally, left upper lobe spiculated pulmonary nodule 1.5 cm Right lower lobe 1.4 cm pulmonary nodule Subcarinal lymphadenopathy -- Multiple pulmonary nodules with mediastinal lymphadenopathy With mets to the spine and the ribs Primary seems to be lung. COVID-19 NAAT negative S/p EBUS 08/29/22--> preliminary diagnosis non-small cell --Bilateral pleural effusion Navigational CT from yesterday showed groundglass opacities bilaterally along with bilateral pleural effusion which were new compared to the time of presentation -- COPD with emphysema Not on any inhalers at home Continue with Anoro daily basis Plan: In/out: -588, urine output 3654, +6 L since coming to the hospital I will wait for the BMP to come back to look at the potassium Lasix 40 mg after the BMP has resulted Continue with O2 supplementation to keep oxygen saturation 90 and above Follow-up confirmatory pathology and cytology Case was discussed with Dr. Laurent Please note the above document was generated using voice recognition software. It may contain grammatical, syntax or spelling errors.Any formal questions or concerns about the content, text or information contained within the body of this dictation should be directly addressed to the provider for clarification. Admission and Anticipated Discharge Date Admission Date: August 26, 2022 Subjective Patient seen and examined at bedside. No acute distress, no adverse events overnight She was saturating 97% on room air. Denies any significant shortness of breath. Did complain of pain at the site of the rib metastasis No abdominal pain Was asking to go home. Denies any hemoptysis. Review of Systems Review of Systems: All systems reviewed & are unremarkable except as noted in Subjective Physical Exam Physical Exam: Constitutional: No acute distress HEENT: EOMI, PERRLA Respiratory system: Decreased air entry bilaterally, no wheeze, no rhonchi, positive crackles bilateral lower lobes CVS: S1-S2 positive, no murmurs or gallops Abdomen: Soft, nontender, nondistended, positive bowel sounds x4 Extremities: +2 pulses bilaterally radialis/ dorsalis pedis, no cyanosis, no edema Neuro: Awake alert oriented to self and place Psych: Normal mood and affect G/U: Positive Suggs Skin: no rashes, warm and dry Lymphatic: no cervical or axillary lymphadenopathy Results & Data Results & Data ([facility]) Vital Signs (Past 12 Hours) Vital Signs Temp Pulse Pulse Resp BP Pulse Ox O2 Del Method 08/30/22 07:12 105 H 08/30/22 03:06 36.8 C 102 H 18 132/80 96 Nasal Cannula 08/29/22 22:02 112 H 08/29/22 22:50 36.7 C 110 H 18 135/70 94 Room Air 08/29/22 22:21 Nasal Cannula 08/29/22 21:05 36.9 C 114 H 18 130/85 96 Nasal Cannula O2 Flow Rate 08/30/22 07:12 08/30/22 03:06 2 08/29/22 22:02 08/29/22 22:50 08/29/22 22:21 3 08/29/22 21:05 2 Laboratory Results 08/28/22 09:13 08/29/22 17:15 PG Care Time/CCT Total # of Minutes Spent Total Time Spent with Patient: Total time spent is greater than 50% in coordination of care (as documented) at patient's floor/unit and/or counseling patient: Coding Level of Care Code 62098 SUB INP/OBS CARE 3/50MIN Diagnoses Pathological fracture of rib of left side M84.48XA Multiple pulmonary nodules R91.8 LAD (lymphadenopathy), mediastinal R59.0 COPD with emphysema J43.9 Pleural effusion J90
[2022-08-30] MEDS: LORATADINE 10 MG TAB PO SCH (08:45)
[2022-08-30] MEDS: lisinopril 10 MG TAB PO SCH (08:45)
[2022-08-30] MEDS: THIAMINE HCL 50 MG TABLET PO SCH (08:45)
[2022-08-30] MEDS: FOLIC ACID 1 MG TAB PO SCH (08:45)
[2022-08-30] MEDS: GABAPENTIN 300 MG CAP PO SCH ×2 (08:46→13:03)
[2022-08-30] MEDS: UMECLIDINIUM/VILANTEROL 62.5/25MCG 7 PUFFS/INHALER INH SCH (08:46)
[2022-08-30 08:59] LABS: BUN Creatinine Ratio 15.8 (10-20); Calcium 8.6 mg/dl (8.5-10.1); Creatinine Clr Calc Pharmacy 138.1 ml/min; Est GFR (African American) 131.6 ml/min; Est GFR (Non-African American) 113.5 ml/min; Magnesium 1.8 mg/dl (1.7-2.4); Phosphorus 2.4 mg/dl (2.5-4.9); Potassium 2.8 mmol/L (3.5-5.1)
--- NOTE | 2022-08-30 09:10 | XRay Report ---
SINGLE VIEW CHEST CLINICAL HISTORY: Status post bronchoscopy. FINDINGS: An AP, portable, upright chest radiograph is compared to chest x-ray and chest CT dated 08/29. The heart is mildly enlarged noting atherosclerotic calcification of the thoracic aorta. Emphy sematous change and chronic interstitial thickening is similar to previous. Asymmetric airspace opaci ties are again seen throughout both lungs, right greater than left. There are left larger than right pleural effusions with bibasilar consolidation. No pneumothorax is seen. The skeletal structures are osteopenic. Destructive change is again seen involving the left-sided ribs. IMPRESSION: 1. Cardiomegaly and emphysema. 2. No pneumothorax is identified post procedure. 3. Asymmetric airspace opacities are again seen throughout both lungs. This is unchanged. 4. Left larger than right pleural effusions with dependent consolidation. 5. Destructive change is again seen involving left-sided ribs. ACT 112: Negative or not required by law. Electronically signed by: Nathan Simeon M.D. 08/30/2022 9:09 AM
[2022-08-30] MEDS ORDERED: POTASSIUM CHLORIDE CRTAB 20 MEQ TABCR PO SCH (09:45)
[2022-08-30] MEDS ORDERED: POTASSIUM CHLORIDE CRTAB 20 MEQ TABCR PO STA (09:52)
[2022-08-30] MEDS ORDERED: cefTRIAXone SODIUM 2,000 MG in DEXTROSE 5% 50 ML IV STA (09:57)
[2022-08-30] MEDS: DOXYCYCLINE HYCLATE 100 MG CAP PO SCH ×2 (10:04→19:30)
[2022-08-30] MEDS: POTASSIUM CHLORIDE / WTR 10 MEQ/100 ML PLCT IV SCH ×4 (10:13→14:21)
[2022-08-30] MEDS: LORazepam 2 MG/1 ML VIAL IV PRN (10:26)
--- NOTE | 2022-08-30 11:03 | Hospitalist Progress Note ---
Date of Service August 30, 2022 Assessment & Plan (1) Metastatic cancer: Plan: Preliminary read is adenocarcinoma and while that does not exclude late occurring metastatic breast cancer, much more likely that we are dealing with a new metastatic lung adenocarcinoma given the pattern of presentation. Further cell marker processing should help us to confirm that She has unequivocal metastatic disease and thus therapy will be palliative not curative. With this histology, however, we await [employer] to see if there are targeted, pure immunotherapy, or other noncytotoxic options. Current performance status would not support an aggressive cytotoxic based approach. Immediate issues will be to try to better stabilize her pain, complete her work- up, and see if we can get that performance status to a better place to expand our potential treatment options. Plan 1. Await finalization of pathology to formalize initial diagnosis and as well to pursue NGS studies indicative of any targeted/pure immunotherapy treatment options. The latter may take 1 to 2 weeks to complete. Given current poor performance status and current symptomatology she is not an immediate candidate for systemic therapy in any case. 2. Palliative care consultation may help to further manage her pain but also to begin conversations with patient and her regarding parameters of care 3. Radiation oncology consultation may be able to offer specific palliative radiation to the more symptomatic areas of skeletal involvement 4. MRI of the brain with and without contrast will be important for staging particularly where she has incompletely recovered her full cognitive function, much of that, however, probably due to ongoing medications 5. If needs interval rehabilitation, it would be worthwhile to "build her up" sufficiently to tolerate upcoming systemic treatment. Admission and Anticipated Discharge Date Admission Date: August 26, 2022 Subjective Status post bronchoscopy yesterday with preliminary adenocarcinoma. Patient still having significant pain and frequently using her as needed medications. Physical Exam Physical Exam: VSS other than borderline tachycardia Alert but still groggy, does not seem to be in immediate respiratory distress still having some musculoskeletal pain. Results & Data Results & Data ([facility]) Vital Signs (Past 12 Hours) Vital Signs Temp Pulse Pulse Pulse Resp BP Pulse Ox 08/30/22 08:07 36.6 C 109 H 16 135/82 94 08/30/22 07:12 105 H 08/30/22 03:06 36.8 C 102 H 18 132/80 96 O2 Del Method O2 Flow Rate 08/30/22 08:07 Room Air 08/30/22 07:12 08/30/22 03:06 Nasal Cannula 2 PG Care Time/CCT Total # of Minutes Spent Total Time Spent with Patient: Total time spent is greater than 50% in coordination of care (as documented) at patient's floor/unit and/or counseling patient: Coding Level of Care Code 33880 SUB INP/OBS CARE 1/25MIN Diagnoses Metastatic cancer C79.9
[2022-08-30] MEDS: LIDOCAINE 5% 1 PATCH TD SCH ×2 (11:15→11:19)
--- NOTE | 2022-08-30 11:38 | Radiation OncologyConsultation ---
Date of Consultation August 30, 2022 Assessment & Plan (1) Metastatic cancer: Plan Assessment: Ms. Hamilton is a 61-year-old female with a strong history of smoking who now presents with a new diagnosis of likely metastatic lung cancer with bone involvement. The patient recently underwent a bronchoscopy with EBUS FNA and preliminary diagnosis is suggesting an adenocarcinoma. The patient is currently symptomatic with left-sided chest wall pain. The patient did have imaging studies which revealed multiple areas of bony metastatic disease involvement including left pleural disease with rib involvement as well as T8 vertebral body with paraspinal disease. The patient has been seen by Dr. Martinez from medical oncology who has recommended completion of the staging work-up including obtaining final tissue diagnosis and MRI of the brain. Dr. Martinez has suggested consideration for systemic therapy in the outpatient setting and has recommended palliative care consultation and radiation oncology consultation regarding her current discomfort and overall planning. I am now seeing the patient in consultation to discuss the role of radiation therapy. Recommendation: Palliative external beam radiation therapy to left chest wall and thoracic spine. Plan: 1. The patient would like more time to process her overall diagnosis and the recommendations. Currently her pain is moderately to well controlled. She will most likely consider palliative external beam radiation therapy. We will follow-up with her on Friday and plan to bring her down for CT simulation for treatment planning if she is agreeable with the goal to start radiation therapy by Friday or Friday. 2. Continue pain management as per primary medical team. 3. Palliative care input appreciated. 4. Continue follow-up with medical oncology. 5. MRI of brain pending. 6. Patient and family encouraged to call us with any further questions or concerns. Rationale/Explanation of Treatment: I explained the indications, alternatives, benefits, risks and side effects of external beam radiation therapy. I then discussed radiation therapy side effects for treatment which include, but are not limited to, skin erythema, dry/moist desquamation of the skin, hyperpigmentation, telangiectasias, damage to the heart and development of cardiovascular disease, damage to the lungs including radiation pneumonitis, pulmonary fibrosis, decrease in pulmonary function, cough, fistula formation, tracheal stenosis, esophageal stenosis, esophageal perforation, dysphagia, nausea, vomiting, ulcers in stomach/bowel, gastritis, gastric perforation, bowel perforation, bowel obstruction, weight loss, dehydration, decreased appetite, liver damage including hepatitis and liver failure, damage to the kidneys including decreased renal function and renal failure, spinal cord damage including myelopathy, fatigue and secondary malignancy. History of Present Illness Attending Physician: Rodney Laurent MD History of Present Illness 08/26/2022. Patient presents emergency room for back and left chest/flank pain. Admitted for further work-up and evaluation. 08/26/2022. Chest x-ray. IMPRESSION: 1. No acute cardiopulmonary abnormality. 2. There are several acute appearing left-sided rib fractures. Correlate for point tenderness. 08/26/2022. Chest CTA. 1. No pulmonary emboli identified. 2. Mediastinal and bilateral hilar lymphadenopathy, as described above. In addition multiple skeletal lesions, including lesions within the T8 vertebra with mild epidural extension of tumor and paravertebral extension, as described above. Associated pathologic fractures of left sixth and seventh ribs. The findings are consistent with a neoplastic etiology and favor metastatic disease. Lymphoma is within the differential but considered less likely. 3. Spiculated 1.5 cm left lung apex nodule. This is suspicious for a primary lung malignancy although its unclear if the skeletal and batsheva metastases are related to this lesion. Pulmonary consultation is recommended. 4. Emphysema. 5. Indeterminate but low suspicion right breast nodule. Addendum: Although not definitive, the primary lesion is likely the spiculated left lung apex lesion. Bony involvement of several left sided ribs and the T8 vertebral body may reflect extension from pleural metastases. Skeletal metastases with secondary pleural involvement could appear similar. 08/26/2022. CT of the abdomen/pelvis. 1. No acute process within the abdomen or pelvis. 2. Thoracic lymphadenopathy and pleural metastases within the left hemithorax with associated bony involvement better depicted on the chest CT. Please see that report for further description. 3. Bilateral nephrolithiasis. No ureteral calculi or hydronephrosis. 08/26/2022. CT of thoracic spine. Multiple lytic lesions within the T8 vertebral body with mild loss of vertebral body height. Although suboptimally assessed by CT, mild epidural extension of tumor which results in suspected mild central canal stenosis. Associated paravertebral tumor and left-sided neural foraminal narrowing, as above. Findings are highly suggestive of metastatic disease. Although not definitive, the potential primary is within the left lung apex given multiple suspected batsheva and left pleural metastases. 08/27/2022. MRI C-spine. 1. Significantly motion compromised examination. 2. There is no MRI evidence of metastatic disease in the cervical spine. 3. Thoracic spinal metastatic disease is seen on the mechanical assembly sequence. 4. The cervical cord is normal in morphology and signal intensity. 5. Multilevel cervical spondylosis as above. See discussion for detailed level by level analysis. 08/27/2022. MRI thoracic spine. 1. Multifocal osseous metastatic disease within the thoracic spine centered at the T8 level which demonstrates both epidural and paraspinal soft tissue extension as described above. This results in mild central canal narrowing at this level. There is also bilateral neural foraminal narrowing at T7-T8 and T8-T9 due to the tumor extension. 2. No definite acute fractures within the thoracic spine. 3. The left rib fractures are better appreciated on the same day chest CT. 4. Mediastinal and bilateral hilar lymphadenopathy is again noted. 08/27/2022. MRI of lumbar spine. 1. A 12 mm metastatic focus within the anterior aspect of the L1 vertebral body. No epidural or paraspinal soft tissue extension. 2. No fracture or subluxation. 3. Degenerative changes as described above. 08/27/2022. Pulmonary consultation. Dr. Landin. Recommendation is for bronchoscopy with EBUS FNA. Likely suspicion for metastatic lung cancer. MRI brain recommended. 08/27/2022. Medical oncology consultation. Dr. Martinez. Recommendation is for tissue diagnosis. Likely metastatic lung cancer. Completion of staging work- up. 08/29/2022. Bronchoscopy with EBUS FNA by Dr. Landin. Findings include: "Station 4R, station 7 and 10 R were visualized. 4R:-2 passes of multiple sweeps, positive for probable adenocarcinoma. 10 R:-6 passes with multiple sweeps, probable adenocarcinoma 7:-5 passes with multiple sweeps, probable adenocarcinoma with necrosis." 08/29/2022. Medical oncology follow-up. Dr. Martinez. Await final pathology. Palliative care consultation. Radiation oncology consultation. MRI of the brain. Complete staging work-up. Consider systemic therapy in the outpatient setting. Allergies Allergy/AdvReac Type Severity Reaction Status Date / Time No Known Allergies Allergy Unverified 08/26/22 20:37 Home Medications Medication Instructions Recorded Confirmed Type citalopram 40 mg tablet (Celexa) 40 mg PO QAM 12/19/19 08/26/22 History desloratadine 5 mg tablet 5 mg PO QAM 12/19/19 08/26/22 History (Clarinex) gabapentin 300 mg capsule 300 mg PO UD 08/26/22 08/26/22 History lisinopril 10 mg tablet 10 mg PO QAM 08/26/22 08/26/22 History methocarbamol 500 mg tablet 1,000 mg PO Q6 PRN muscle 08/26/22 08/26/22 History spasm/discomfort/tension omeprazole 40 mg capsule,delayed 40 mg PO DAILYBB 08/26/22 08/26/22 History release tramadol 50 mg tablet 50 - 100 mg PO Q8 PRN pain,severe 08/26/22 08/26/22 History Patient History Medical History (Updated 08/30/22 @ 07:48 by Nya Landin MD, [facility]) COPD with emphysema Surgical History (Updated 08/27/22 @ 09:03 by Jolynn Avina PA-C) H/O breast biopsy Right 01/03/2009 History of laminectomy left T7-8 endoscopic discectomy 02/01/[address] Holt [facility] [place] History of tonsillectomy and adenoidectomy 1986 History of total hysterectomy 2007 Social History Smoking Status: Heavy tobacco smoker Tobacco Type: Cigarettes Second Hand Exposure: Yes; Do You Dip or Chew Tobacco: No; Hx Alcohol Use: Yes Alcohol type: hard liquor Preferred Language: Citizen Of [place] Communication Ability: Effective Cattle Trader Required: No Beliefs That Will Affect Care: None Current Living Situation: Spouse Other Information That Helps Us Care for You: No Feels Safe at Home: Yes Safety Concerns: Feels Safe At This Time Assistive Devices: None Review of Systems Review of Systems: Patient complains of left-sided chest wall pain. Otherwise no symptoms. Currently, the patient feels overwhelmed by the diagnosis. Physical Exam Constitutional: WD/WN, vitals as above Musculoskeletal: Left chest wall tenderness upon palpation. Neurologic: patellar DTR's 2+ bilat, sensation intact and PERRL, EOMI, accommodation nl, no face palsy, no dysarthria Psychiatric: A+Ox3, euthymic affect
--- NOTE | 2022-08-30 12:50 | Hospitalist Progress Note ---
Date of Service August 30, 2022 Assessment & Plan (1) COPD with emphysema: (2) Metastatic cancer: (3) Multiple pulmonary nodules: (4) Pathological fracture of rib of left side: Plan: (1) Multiple pulmonary nodules: (2) Bone metastasis: Plan: per admitting service notes with addendum: ASSESSMENT AND PLAN: This is a 61-year-old female, who presents with severe back pain, going on for a year, had endoscopic decompression of thoracic spine in [place] in January and also recently had nerve block of the thoracic spine, comes with worsening pain and found to have possible metastatic disease. 1.Pulmonary Nodule, suspicious for Cancer possible mets to T8, L 6-7th ribs Severe back pain, thoracic spine pain and left ribcage pain: Imaging studies show 1.5-cm left lung apex nodule, pathological fracture of the left 6th and 7th ribs, multiple skeletal lesions including lesions in the T8 vertebra with mild epidural extension of the tumor and paravertebral extension.Pain control iv dilaudid p.r.n. and oxycodone p.r.n. We will keep her n.p.o. from midnight. Pulmonary consult. We will give a dose of soulmedrol. Will get mri of spine.. May discuss with hem/onc and radiation oncology in the a.m. -- Pulmonology: for EBUS today Pain management: recommendations noted patient observed by RN to be very drowsy, unstable when ambulating to the bathroom- requiring assistance HOLD narcotics, Gabapenting, Baclofen re-assess in the afternoon may need to reduce doses of pain meds 2/9 more awake reporting generalized pain resume Oxycodone but on 5mg q6h resume Gabapentin hold Baclofen for now encouraged Incentive Spirometry use 2/ likely Adenocarcinoma per Dr. Martinez recommend: Brain MRI with contrast- hold for now as patient receiving IV lasix Radiation Oncologist and Palliative Care services consult continue Oxycodone, Gabapentin (+) volume overload, possible BL lower lobe pneumonia -- replace K Lasix 20mg IV -- Ceftri + Doxy started 2. History of hypertension: Continue lisinopril. 3. Gastroesophageal reflux disease: Continue omeprazole. 4. History of depression. QTC 475 5. Hypokalemia: replaced 6. Hyponatremia: Sodium 129 possibly siadh from malignancy, also poor oral intake. Getting D5 normal saline. We will also follow urine osmolality, serum osmolality, and urine sodium levels. If not improving, we will consult nephrology. Na 131 - 135 7. Leukocytosis improving BC negative so far 8. Mild hypercalcemia resolved 9. Mild elevation of troponin, mostly demand ischemia: resolved 9. Ongoing tobacco abuse: Needs counseling. Nicotine patch for now. 10. Alcoholism: on PRN Ativan already on Gabapentin TID Thiamine, Folate monitor closely DVT px scds for now. DISPOSITION: anticipate d/c home when medically stable Admission and Anticipated Discharge Date Admission Date: August 26, 2022 Subjective ff up for lung ca with mets, etc seen resting in bed, comfortable sitting up on room air states she feels fine overall L rib pain, back pain adequately controlled no chest pain, dyspnea, palpitations, dizziness no other symptoms eager to be discharged home Review of Systems Review of Systems: all noted and negative except for above Physical Exam Physical Exam: General- oriented x 3, not in distress, speaks in sentences with no effort or accessory muscle use Eyes- anicteric Neck- no JVD Lungs- clear breath sounds bilaterally, no rales/wheezes Heart- normal rate, regular rhythm; no murmurs Abdomen- normal bowel sounds, nondistended, soft, nontender Extremities- no pretibial edema, no calf tenderness Neuro- alert, oriented x 3; no gross focal neurologic deficits Skin- warm & dry Results & Data Results & Data ([facility]) Vital Signs (Past 12 Hours) Vital Signs Temp Pulse Pulse Pulse Resp BP Pulse Ox 08/30/22 11:42 37.3 C 118 H 16 110/72 93 08/30/22 08:07 36.6 C 109 H 16 135/82 94 08/30/22 07:12 105 H 08/30/22 03:06 36.8 C 102 H 18 132/80 96 O2 Del Method O2 Flow Rate 08/30/22 11:42 Room Air 08/30/22 08:07 Room Air 08/30/22 07:12 08/30/22 03:06 Nasal Cannula 2
--- NOTE | 2022-08-30 12:53 | Palliative Care Consultation ---
Date of Consultation August 30, 2022 Assessment & Plan (1) Pain: with bony metastases Better on gabapentin, oxycodone and lidoderm Will add routine senna for bowel prophylaxis with opioid, decreased po intake and decreased activity She has normal renal function Could consider NSAID, such as naproxen, for bone related pain (2) Palliative care encounter: I met with Chiqui and her at bedside. They are understandably overwhelmed with information at this point. Her tells me that Chiqui has been very active and used to helping others. He is concerned about how she will feel about accepting help from others at this time. They have strong support from family and friends. Chiqui tells me that she has "gotten over being proud" and recognizes that she will need help as she navigates her illness. She has a very pragmatic approach and is really trying to focus on one day at a time. Her mentioned more than once, "we'll do what we need to do to fight this". I asked Chiqui what was most important to her at this time and she told me that she is relieved to have less pain. She is interested in understanding treatment options and treating the cancer to allow her to have more time. I asked her if there was anything she would not be willing to go through for treatment. She did not think so at this time but pointed out that she will approach this one day at a time. Palliative care will follow. History of Present Illness Reason for Consultation: goals of care Requesting Physician: Dr. Laurent Attending Physician: Rodney Laurent MD History of Present Illness 61 yo lady who presented with uncontrolled back pain and was found to have metastatic lesions of the thoracic spine and pathologic left 6th and 7th rib fractures. She has been seen at [facility] and in the last six months has had endoscopic decompression as well as paravertebral block. Pain persisted and she presented to emergency room. CT showed left apical pulmonary mass with mediastinal and bilateral hilar lymphadenopathy. She underwent bronchoscopy yesterday and pathology indicates adenocarcinoma, presumably lung primary. She has comorbid COPD. She has been seen by pain management earlier in her admission and was ordered baclofen, oxycodone, lidoderm and prn hydromorphone. She tells me that she has not slept well or eaten much in three months, due to pain. She initially was more somnolent but is awake and reports that pain is much better. She complains of some pain with movement, particularly in the rib area but feels this is tolerable compared to what she had before. She is now using oxycodone 5mg every four hours. Chart indicates LBM was 2/6 but she tells me that she had BM yesterday. She is able to ambulate to bathroom with minimal assist. Allergies Allergy/AdvReac Type Severity Reaction Status Date / Time No Known Allergies Allergy Unverified 08/26/22 20:37 Home Medications Medication Instructions Recorded Confirmed Type citalopram 40 mg tablet (Celexa) 40 mg PO QAM 12/19/19 08/26/22 History desloratadine 5 mg tablet 5 mg PO QAM 12/19/19 08/26/22 History (Clarinex) gabapentin 300 mg capsule 300 mg PO UD 08/26/22 08/26/22 History lisinopril 10 mg tablet 10 mg PO QAM 08/26/22 08/26/22 History methocarbamol 500 mg tablet 1,000 mg PO Q6 PRN muscle 08/26/22 08/26/22 History spasm/discomfort/tension omeprazole 40 mg capsule,delayed 40 mg PO DAILYBB 08/26/22 08/26/22 History release tramadol 50 mg tablet 50 - 100 mg PO Q8 PRN pain,severe 08/26/22 08/26/22 Hist ory Patient History Medical History COPD with emphysema Surgical History H/O breast biopsy Right 01/03/2009 History of laminectomy left T7-8 endoscopic discectomy 02/01/[address] [place] [facility] History of tonsillectomy and adenoidectomy 1986 History of total hysterectomy 2007 Social History Smoking Status: Heavy tobacco smoker Tobacco Type: Cigarettes Second Hand Exposure: Yes; Do You Dip or Chew Tobacco: No; Hx Alcohol Use: Yes Alcohol type: hard liquor Preferred Language: Irish Communication Ability: Effective Store Receiving Specialist Required: No Beliefs That Will Affect Care: None Current Living Situation: Spouse Other Information That Helps Us Care for You: No Feels Safe at Home: Yes Safety Concerns: Feels Safe At This Time Assistive Devices: None Review of Systems Review of Systems: ESAS Pain 1/3 Dyspnea 0/3 Nausea 0/3 Anxiety 0/3 Drowsiness 0/3 Physical Exam Constitutional: no acute distress tired appearing ENMT: Mouth: oral mucous membranes not dry Respiratory: normal respiratory effort; no labored breathing Musculoskeletal: Extremities: extremities normal to inspection Neurologic: awake; not confused Genitourinary: continent Results & Data ([facility]) Vital Signs (Past 12 Hours) Vital Signs Temp Pulse Pulse Pulse Resp BP Pulse Ox 08/30/22 11:42 99.1 F 118 H 16 110/72 93 08/30/22 08:07 97.9 F 109 H 16 135/82 94 08/30/22 07:12 105 H 08/30/22 03:06 98.2 F 102 H 18 132/80 96 O2 Del Method O2 Flow Rate 08/30/22 11:42 Room Air 08/30/22 08:07 Room Air 08/30/22 07:12 08/30/22 03:06 Nasal Cannula 2 PG Care Time/CCT Total # of Minutes Spent Total Time Spent: 62 Total Time Spent with Patient: Total time spent is greater than 50% in coordination of care (as documented) at patient's floor/unit and/or counseling patient:[id number] symptom management, goals of care, patient and family education and support Coding Level of Care Code 36810 INT INP/OBS CARE 2/55MIN Diagnoses Pain R52 Palliative care encounter Z51.5
[2022-08-30] MEDS ORDERED: FUROSEMIDE INJ 20 MG/2 ML VIAL IV ONE (13:00)
[2022-08-30] MEDS ORDERED: FUROSEMIDE 40 MG/4 ML VIAL IV ONE (16:03)
[2022-08-30] MEDS: SENNA 8.6 MG TAB PO SCH (19:30)
[2022-08-31] MEDS: oxyCODONE HCL IR 5 MG TAB (IMMEDIATE RELEASE) PO PRN ×2 (02:54→08:36)
[2022-08-31] MEDS: PANTOprazole 40 MG TAB PO SCH (05:41)
[2022-08-31] MEDS: THIAMINE HCL 50 MG TABLET PO SCH (08:38)
[2022-08-31] MEDS: SENNA 8.6 MG TAB PO SCH (08:38)
[2022-08-31] MEDS: LORATADINE 10 MG TAB PO SCH (08:38)
[2022-08-31] MEDS: FOLIC ACID 1 MG TAB PO SCH (08:38)
[2022-08-31] MEDS: lisinopril 10 MG TAB PO SCH (08:38)
[2022-08-31] MEDS: LIDOCAINE 5% 1 PATCH TD SCH (08:38)
[2022-08-31] MEDS: DOXYCYCLINE HYCLATE 100 MG CAP PO SCH (08:38)
[2022-08-31] MEDS: GABAPENTIN 300 MG CAP PO SCH (08:39)
[2022-08-31] MEDS: UMECLIDINIUM/VILANTEROL 62.5/25MCG 7 PUFFS/INHALER INH SCH (08:40)
[2022-08-31 10:13] LABS: BUN Creatinine Ratio 16.7 (10-20); Creatinine Clr Calc Pharmacy 109.3 ml/min; Est GFR (African American) 121.8 ml/min; Est GFR (Non-African American) 105.1 ml/min; Magnesium 1.7 mg/dl (1.7-2.4); Potassium 3.2 mmol/L (3.5-5.1)
[2022-08-31] MEDS ORDERED: POTASSIUM CHLORIDE CRTAB 20 MEQ TABCR PO STA (10:34)
--- NOTE | 2022-08-31 12:35 | Hospitalist Progress Note ---
Date of Service August 31, 2022 delayed entry date of service noted above Assessment & Plan (1) COPD with emphysema: (2) Metastatic cancer: (3) Multiple pulmonary nodules: (4) Pathological fracture of rib of left side: Plan: (1) Multiple pulmonary nodules: (2) Bone metastasis: Plan: per admitting service notes with addendum: ASSESSMENT AND PLAN: This is a 61-year-old female, who presents with severe back pain, going on for a year, had endoscopic decompression of thoracic spine in [place] in January and also recently had nerve block of the thoracic spine, comes with worsening pain and found to have possible metastatic disease. 1.Pulmonary Nodule, lung adenocarcinoma, new diagnosis Metastasis to T8, L 6-7th ribs Severe back pain, thoracic spine pain and left ribcage pain: Imaging studies show 1.5-cm left lung apex nodule, pathological fracture of the left 6th and 7th ribs, multiple skeletal lesions including lesions in the T8 vertebra with mild epidural extension of the tumor and paravertebral extension. -- Status post bronchoscopy with biopsy: Positive for lung adenocarcinoma -- Oncologist Dr. Martinez consulted Recommend brain MRI-patient prefers to be done as an outpatient Radiation oncologist Dr. Ewa Augustine also consulted Further discussion regarding chemotherapy, radiation therapy as an outpatient -- Pain management service also consulted Patient placed on oxycodone 5 mg as needed Reduce gabapentin to 300 mg 3 times daily to prevent drowsiness, altered mental status Patient declines baclofen Bilateral lower lobe pneumonia Volume overload -- Noted after bronchoscopy --Given IV Lasix, improved Continue doxycycline to complete 7-day course --Follow-up with material carrier Dr. Landin 2. History of hypertension: Continue lisinopril. 3. Gastroesophageal reflux disease: Continue omeprazole. 4. History of depression. QTC 475 5. Hypokalemia: replaced 6. Hyponatremia: Sodium 129 possibly siadh from malignancy, also poor oral intake. Mild, resolved Na 131 - 135 7. Leukocytosis improving BC negative so far 8. Mild hypercalcemia resolved 9. Mild elevation of troponin, mostly demand ischemia: resolved 9. Ongoing tobacco abuse: Needs counseling. Nicotine patch for now. 10. Alcoholism: Given as needed Ativan DVT px scds for now. DISPOSITION: Discharge to home Follow-up with PCP in 1 week Follow-up with oncologist in 1 to 2 weeks plan of care discussed with patient in detail and at length all questions answered she is understanding, agreeable, comfortable with the plan of care Admission and Anticipated Discharge Date Admission Date: August 26, 2022 Subjective Follow-up for lung adenocarcinoma metastasis to T8, left rib fractures, etc. Seen resting in bed, comfortable, awake and alert Not in distress Comfortable States left rib pain and back pain is well controlled No chest pain, shortness of breath, dizziness, palpitations, nausea No fevers or chills No other symptoms Patient states she is ready and would like to go home today Review of Systems Review of Systems: all noted and negative except for above Physical Exam Physical Exam: General- oriented x 3, not in distress, speaks in sentences with no effort or accessory muscle use Eyes- anicteric Neck- no JVD Lungs- clear breath sounds bilaterally, no rales/wheezes Heart- normal rate, regular rhythm; no murmurs Abdomen- normal bowel sounds, nondistended, soft, nontender Extremities- no pretibial edema, no calf tenderness Neuro- alert, oriented x 3; no gross focal neurologic deficits Skin- warm & dry Results & Data Results & Data ([facility]) Vital Signs (Past 12 Hours) Vital Signs Temp Pulse Pulse Resp BP Pulse Ox O2 Del Method 08/31/22 11:54 36.8 C 123 H 20 119/72 96 08/31/22 11:37 119 H 08/31/22 07:53 36.8 C 123 H 20 119/72 96 Room Air 08/31/22 02:42 36.5 C 94 H 16 133/75 94 Room Air all noted and reviewed including below
--- NOTE | 2022-08-31 12:58 | Pulmonology Progress Note ---
Date of Service August 31, 2022 Assessment & Plan (1) Pathological fracture of rib of left side: (2) Multiple pulmonary nodules: (3) LAD (lymphadenopathy), mediastinal: (4) COPD with emphysema: (5) Pleural effusion: Plan CT chest 08/26/2022 personally reviewed: Centrilobular emphysema appreciated bilaterally, left upper lobe spiculated pulmonary nodule 1.5 cm Right lower lobe 1.4 cm pulmonary nodule Subcarinal lymphadenopathy -- Multiple pulmonary nodules with mediastinal lymphadenopathy With mets to the spine and the ribs Primary seems to be lung. COVID-19 NAAT negative S/p EBUS 08/29/22--> adenocarcinoma of the lung --Bilateral pleural effusion Navigational CT from yesterday showed groundglass opacities bilaterally along with bilateral pleural effusion which were new compared to the time of presentation -- COPD with emphysema Not on any inhalers at home Continue with Anoro daily basis Plan: EBUS pathology was positive for adenocarcinoma of the lung. Patient needs to have MRI of the brain, PET/CT to be done as soon as possible She is going to follow-up with radiation oncology as well as oncology as an outpatient. Electrolyte replacement as per primary care Continue with Anoro on discharge Complete total 5 days of doxycycline No further recommendation from pulmonary perspective. We will sign off Please call directly with any questions Case was discussed with Dr. Laurent Please note the above document was generated using voice recognition software. It may contain grammatical, syntax or spelling errors.Any formal questions or concerns about the content, text or information contained within the body of this dictation should be directly addressed to the provider for clarification. Admission and Anticipated Discharge Date Admission Date: August 26, 2022 Review of Systems Review of Systems: All systems reviewed & are unremarkable except as noted in Subjective Physical Exam Physical Exam: Constitutional: No acute distress HEENT: EOMI, PERRLA Respiratory system: Decreased air entry bilaterally, no wheeze, no rhonchi, positive crackles bilateral lower lobes CVS: S1-S2 positive, no murmurs or gallops Abdomen: Soft, nontender, nondistended, positive bowel sounds x4 Extremities: +2 pulses bilaterally radialis/ dorsalis pedis, no cyanosis, no edema Neuro: Awake alert oriented to self and place Psych: Normal mood and affect G/U: Positive Suggs Skin: no rashes, warm and dry Lymphatic: no cervical or axillary lymphadenopathy Results & Data Results & Data ([facility]) Vital Signs (Past 12 Hours) Vital Signs Temp Pulse Pulse Resp BP Pulse Ox O2 Del Method 08/31/22 11:54 36.8 C 123 H 20 119/72 96 08/31/22 11:37 119 H 08/31/22 07:53 36.8 C 123 H 20 119/72 96 Room Air 08/31/22 02:42 36.5 C 94 H 16 133/75 94 Room Air Laboratory Results 08/28/22 09:13 08/31/22 09:25 PG Care Time/CCT Total # of Minutes Spent Total Time Spent with Patient: Total time spent is greater than 50% in coordination of care (as documented) at patient's floor/unit and/or counseling patient: Coding Level of Care Code 85800 SUB INP/OBS CARE 2/35MIN Diagnoses Pathological fracture of rib of left side M84.48XA Multiple pulmonary nodules R91.8 LAD (lymphadenopathy), mediastinal R59.0 COPD with emphysema J43.9 Pleural effusion J90
--- NOTE | 2022-09-01 17:23 | Discharge Summary ---
Discharge Summary Date of Service September 01, 2022 Notes For Next Care Provider Medication Changes From Visit Doxycycline x5 days Anoro Ellipta for COPD Oxycodone-as needed for moderate to severe pain Senokot Potassium supplement gabapentin reduced to 300 mg 3 times a day. Admission HPI Per Admitting Provider HISTORY OF PRESENT ILLNESS: This is a 61-year-old female with past medical history significant for allergic rhinitis, hypertension, GERD, mid low back pain, radicular pain of thoracic spine, depression, ongoing tobacco use, presents with severe back pain, radiating to left chest side and left upper abdomen. When in severe pain has nausea. Appetite is down, not eating much because of pain. Denies any shortness of breath. She smokes 1 pack of cigarettes daily. Denies any headache, no dizziness, no blurred visions, no earache, no runny nose, no sore throat, no cough, no difficulty swallowing. No diarrhea or constipation. No blood in stool or black stools. Normal bladder movements. No swelling in the legs. The patient says, in 01/2022 at [place], she had left T7-T8 endoscopic decompression but pain not improved and about one and a half week ago, she had a nerve block, but was not getting better and she was having some difficulty in ambulation because of pain. That is the reason she came here today. Hemodynamically stable. White count is 18. Sodium 129, potassium 2.4. Troponin 21.9. SARS-CoV-2 rapid test negative. Admission Exam Per Admitting Provider GENERAL: The patient is of moderate build, not in acute distress. VITAL SIGNS: Temperature 36.6, pulse 116, respiratory rate 18, blood pressure 101/60, oxygen 98% on room air. HEENT: Pupils equal, round and reactive to light. Oral mucosa moist. NECK: No JVD, no neck masses. CARDIOVASCULAR: S1 and S2 heard. Regular rate and rhythm. No murmur, no gallop. RESPIRATORY SYSTEM: Normal AP diameter. No accessory muscle use. No wheezing, no crackles. ABDOMEN: Soft, bowel sounds present, no distention, CENTRAL NERVOUS SYSTEM: Alert and oriented. Speech is clear. No facial droop. Obeys simple commands. Moves extremities. EXTREMITIES: No edema, no erythema. MUSCULOSKELETAL: Has tenderness in the left-sided lower rib cage and upper back spine region. Principal Dx & Hospital Course #1 = Principal Diagnosis (1) COPD with emphysema: (2) Metastatic cancer: (3) Multiple pulmonary nodules: (4) Pathological fracture of rib of left side: (1) Multiple pulmonary nodules: (2) Bone metastasis: Plan: per admitting service notes with addendum: ASSESSMENT AND PLAN: This is a 61-year-old female, who presents with severe back pain, going on for a year, had endoscopic decompression of thoracic spine in [place] in January and also recently had nerve block of the thoracic spine, comes with worsening pain and found to have possible metastatic disease. 1.Pulmonary Nodule, lung adenocarcinoma, new diagnosis Metastasis to T8, L 6-7th ribs -- Severe back pain, thoracic spine pain and left ribcage pain: Imaging studies show 1.5-cm left lung apex nodule, pathological fracture of the left 6th and 7th ribs, multiple skeletal lesions including lesions in the T8 vertebra with mild epidural extension of the tumor and paravertebral extension. -- Status post bronchoscopy with biopsy: Positive for lung adenocarcinoma -- Oncologist Dr. Martinez consulted Recommend brain MRI-patient prefers to be done as an outpatient Radiation oncologist Dr. Ewa Augustine also consulted Further discussion regarding chemotherapy, radiation therapy as an outpatient -- Pain management service also consulted Patient placed on oxycodone 5 mg as needed Reduce gabapentin to 300 mg 3 times daily to prevent drowsiness, altered mental status Patient declines baclofen Bilateral lower lobe pneumonia Volume overload -- Noted after bronchoscopy --Given IV Lasix, improved Continue doxycycline to complete 7-day course --Follow-up with grinder and plater Dr. Landin 2. History of hypertension: Continue lisinopril. 3. Gastroesophageal reflux disease: Continue omeprazole. 4. History of depression. QTC 475 5. Hypokalemia: replaced 6. Hyponatremia: Sodium 129 possibly siadh from malignancy, also poor oral intake. Mild, resolved Na 131 - 135 7. Leukocytosis improving BC negative so far 8. Mild hypercalcemia resolved 9. Mild elevation of troponin, mostly demand ischemia: resolved 9. Ongoing tobacco abuse: Needs counseling. Nicotine patch for now. 10. Alcoholism: Given as needed Ativan DVT px scds for now. DISPOSITION: Discharge to home Follow-up with PCP in 1 week Follow-up with oncologist in 1 to 2 weeks plan of care discussed with patient in detail and at length all questions answered she is understanding, agreeable, comfortable with the plan of care Discharge Exam General- oriented x 3, not in distress, speaks in sentences with no effort or accessory muscle use Eyes- anicteric Neck- no JVD Lungs- clear breath sounds bilaterally, no rales/wheezes Heart- normal rate, regular rhythm; no murmurs Abdomen- normal bowel sounds, nondistended, soft, nontender Extremities- no pretibial edema, no calf tenderness Neuro- alert, oriented x 3; no gross focal neurologic deficits Skin- warm & dry Updated Medication List Medication Instructions Recorded Confirmed Type citalopram 40 mg tablet (Celexa) 40 mg PO QAM 12/19/19 08/26/22 History desloratadine 5 mg tablet 5 mg PO QAM 12/19/19 08/26/22 History (Clarinex) lisinopril 10 mg tablet 10 mg PO QAM 08/26/22 08/26/22 History omeprazole 40 mg capsule,delayed 40 mg PO DAILYBB 08/26/22 08/26/22 History release doxycycline hyclate 100 mg capsule 100 mg PO BID 6 days #12 caps 08/31/22 Rx gabapentin 300 mg capsule 300 mg PO TID #20 caps 08/31/22 Rx multivitamin 1 tab PO DAILY #30 tabs 08/31/22 Rx oxycodone 5 mg tablet 5 mg PO Q4H PRN pain #20 tabs 08/31/22 Rx potassium chloride 10 mEq 20 meq PO DAILY 7 days #14 tabs 08/31/22 Rx tablet,extended release sennosides 8.6 mg tablet (Senokot) 8.6 mg PO BID 14 days #28 tabs 08/31/22 Rx umeclidinium 62.5 mcg-vilanterol 1 ea inhalation DAILY 30 days #60 08/31/22 Rx 25 mcg/actuation powdr for ea inhalation (Anoro Ellipta) Hospital Stay Data Consultations 08/26/22 20:06 ED Decision to Admit Stat 08/27/22 07:24 Consult Oncology Routine 08/27/22 08:00 Consult Pain Management Routine Consult Pulmonology Routine 08/30/22 11:15 Consult Palliative Care Routine Consult Radiation Oncology Routine Procedures Performed Operation Date: 08/27/22 07:40 <No data on this case meets the specified criteria> Operation Date: 08/29/22 12:30 Actual Procedures p Veran Navigational Bronchoscopy and Endobronchial Ultrasound, bronchiaveolar lavage(Not Applicable) - Nya Landin MD, [facility] Diagnostic Imagining Performed 08/26/22 16:26 CT angio chest PE protocol Stat 08/26/22 16:31 CT abd pelvis IV con only Stat 08/26/22 16:38 CT thoracic spine w con Stat 08/27/22 00:55 MRI Cervical [MR cervical spine wo/w con] Urgent MRI Lumbar Spine [MR lumbar spine wo/w con] Urgent MRI Thoracic [MR thoracic spine wo/w con] Urgent 08/29/22 11:30 CT bronch Veran chest wo Routine Pending Results Patient Have Any Pending Studies at Discharge: Yes Discharge Instructions Given to Patient (Per Discharging Provider) PLEASE REFER TO YOUR NEW MEDICATION LIST AND FOLLOW INSTRUCTIONS CAREFULLY. YOUR NEW MEDICATIONS INCLUDE: Doxycycline-antibiotic for pneumonia Anoro Ellipta-inhaler for COPD Oxycodone-as needed for moderate to severe pain, do not drive while taking this medication, always follow instructions carefully Senokot-stool softener to prevent constipation Potassium supplement Take your gabapentin 300 mg 3 times a day. Continue using incentive spirometry every 2-3 hours at home. PLEASE CALL YOUR PRIMARY CARE PHYSICIAN OR RETURN TO THE ER IF WITH WORSENING OF SYMPTOMS, INCLUDING Shortness of breath, cough, fevers or chills, Uncontrolled pain, etc. FOLLOW UP WITH PRIMARY CARE PHYSICIAN in 1 week. The clinic will be calling you for an appointment. Please follow-up with Oncologist Dr. Martinez in 1 to 2-weeks. Please call his office for an appointment. Contact information outlined above. Follow up with Radiation oncologist Dr. Augustine in 1 to 2 weeks. Please call his office for an appointment. Contact information outlined above. Follow-up with Lung specialist Dr. Landin in 2 weeks.Please call his office for an appointment. Contact information outlined above. Total Time Total Time Spent Total Time Spent (In Minutes): > 30 minutes
== END 2022-08-31 13:28 | disposition home or self-care (01) | DRG 180 ==
LOC: ED 14:57 → 2N 21:28 → SUATTDRO 21:28 → 2N 08-27 00:20

== ENCOUNTER 2022-10-21 11:27 | Inpatient (IN) ==
[2022-10-21] MEDS ORDERED: diphenhydrAMINE 50 MG/ML VIAL IV STA (12:04)
[2022-10-21] MEDS ORDERED: SODIUM CHLORIDE 0.9% 1000ML 1,000 ML IV ONE (12:04)
[2022-10-21] MEDS ORDERED: PROCHLORPERAZINE 1 ML IV ONE (12:04)
[2022-10-21] MEDS ORDERED: HYDROmorphone INJ 0.5 MG/0.5 ML SYR IV STA (12:04)
[2022-10-21] MEDS ORDERED: PANTOprazole 80 MG in DEXTROSE 5% 100 ML IV STA (12:04)
--- NOTE | 2022-10-21 12:16 | Emergency Department Note ---
Impression & Plan Intractable nausea and vomiting, Hypokalemia, Cancer related pain ED Provider Note Name: MAIRA CHOW Age: 61 Sex: F Arrives Via: Walk-In Informant: Patient ED Provider: Tito Reina MD Chief Complaint: Vomiting Impression: As per impressions above Medical Decision Making: Pleasant 61-year-old female with metastatic cancer arrives for evaluation of intractable nausea vomiting and diffuse pains. Patient is significantly uncomfortable on arrival and dry heaving. She has not really been able to keep anything down for several days and thus is quite dehydrated as well. Laboratory work-up started no clear evidence of infectious etiology at this time. She does have significant hypokalemia which has been a recurrent issue for her. This alone would require hospitalization but in addition she continues to have nausea and pain requiring multiple rounds of IV narcotics and antinausea medications. Hospitalist consulted for further management. Patient without abdominal distention or evidence of obstruction at this time and given the amount of imaging she is already had another clear cause of her symptoms we will hold off on CT at this time. Patient does note some blood in her emesis but no large clots mostly just streaks. I do not feel that this requires emergent GI evaluation and given she is normalized her heart rate and her hemoglobin is stable no indication for transfusion at this time. Prior Medical Record and Triage/Nursing Notes reviewed by Me Extensive external chart review by me Differentials:Cancer related pain, cancer related nausea vomiting, electrolyte imbalance, obstruction, sepsis, anemia, GI bleed amongst many other pathologies considered Vital Signs: reviewed and remarkable for tachycardic Interventions: Normal saline bolus, Dilaudid IV, Protonix IV, Compazine IV, Benadryl IV Labs:Reviewed and remarkable for low potassium Cardiac/Tele Monitoring: Cardiac Monitoring: An Order was placed for continuous cardiac monitoring. The monitor shows a rate of 90 with a normal sinus rhythm. Consults:Hospitalist Plan: Disposition:Hospitalization Condition: Fair History of Present Illness:61-year-old female arrives for evaluation of illness. Patient with metastatic cancer diagnosed 2 months ago with diffuse bony metastasis and pathologic fractures. She went through radiation therapy already and has not yet started chemo due to being too weak. Patient arrives with several days of worsening nausea vomiting and abdominal pain. Patient notes pain is throughout entire abdomen into chest entire body is hurting. She was taking oxycodone with improvement but has been vomiting that up the last 3 days. Today noted some blood streaks in her emesis. She has been unable to keep down any medications. She states she has been having normal bowel movements. Denies any abdominal distention. Has not had any syncope. No fevers or chills. States she can keep food down for about 2 to 3 minutes before she throws back up. Past History:See Below Home Medications:See Below Allergies:NKDA Vitals:Blood Pressure: 118/80, Pulse 108, RR 18, T 36.7C, O2 97% on RA Physical Exam: GENERAL: Patient is unwell/tired/dehydrated appearing and in moderate distress. EYES: No scleral icterus, unremarkable pupils. ENT: Mucous membranes dry, no nasal congestion. RESPIRATORY: No dyspnea. Clear to auscultation and equal bilaterally. No wheeze, no rhonchi. CARDIOVASCULAR: Regular rate and rhythm.No murmurs, rubs, gallops appreciated. GASTROINTESTINAL: Abdomen soft, mild diffuse TTP, no peritonitis. No Distension EXTREMITIES: Normal motion all extremities, no cyanosis, no edema. NEUROLOGIC: Alert and oriented, no focal neurologic deficit appreciated SKIN: No rash, no jaundice, no diaphoresis. PSYCH: Appropriate GCS: 15 ED Course: Times/Reassessments: Patient is much improved with IV antiemetics and pain control. Agreeable to hospitalization. Tito Reina MD Past Med/Surg History Medical History Bone metastasis COPD with emphysema Goals of care, counseling/discussion Hypercalcemia LAD (lymphadenopathy), mediastinal Metastatic cancer Multiple pulmonary nodules Pathological fracture of rib of left side Stage IV adenocarcinoma of lung Surgical History H/O breast biopsy Right 01/03/2009 History of laminectomy left T7-8 endoscopic discectomy 02/01/[address] [place] [facility] [place] History of tonsillectomy and adenoidectomy 1986 History of total hysterectomy 2007 Social History Smoking Status: Current every day smoker Tobacco Type: Cigarettes Second Hand Exposure: No; Do You Dip or Chew Tobacco: No; Hx Alcohol Use: No Hx Substance Use: No Preferred Language: Kiswahili Communication Ability: Effective Head Of Ethics And Compliance Required: No Beliefs That Will Affect Care: None Current Living Situation: Spouse Feels Safe at Home: Yes Assistive Devices: Glasses Allergies Allergies Allergy/AdvReac Type Severity Reaction Status Date / Time No Known Allergies Allergy Verified 10/21/22 13:43 Home Meds Home Medications Medication Instructions Recorded Confirmed citalopram 40 mg tablet (Celexa) 40 mg PO QAM 12/19/19 10/21/22 desloratadine 5 mg tablet 5 mg PO QAM 12/19/19 10/21/22 (Clarinex) omeprazole 40 mg capsule,delayed 40 mg PO DAILYBB 08/26/22 10/21/22 release Potassium Tab 1 tab PO DIRECTED 10/17/22 10/21/22 Previous Rx's Medication Instructions Recorded umeclidinium 62.5 mcg-vilanterol 1 ea inhalation DAILY 30 days #60 08/31/22 25 mcg/actuation powdr for ea inhalation (Anoro Ellipta) oxycodone 5 mg tablet 5 mg PO Q4H PRN pain #30 tabs 09/23/22 prochlorperazine maleate 5 mg 5 mg PO TID PRN nausea and 09/23/22 tablet (Compazine) vomiting #30 tabs famotidine 20 mg tablet 20 mg PO BID #20 tabs 10/17/22 sucralfate 100 mg/mL oral 10 ml PO QID #420 mL 10/17/22 suspension (Carafate) Results & Data (ED) Vital Signs Vital Signs - 24 hr 10/21/22 11:35 Temperature 36.7 C Temperature Source Temporal Artery Scan Pulse Rate 108 H Respiratory Rate 18 Blood Pressure 118/80 Blood Pressure Mean 92 Pulse Oximetry 97 Oxygen Delivery Method Room Air Sepsis Recent Fever Within 48 Hours No Sepsis New/Unexplained Change in Mental Status No Sepsis Action Taken by Nursing No Action Required Laboratory Data 10/22/22 06:02 10/22/22 12:26 Lab Results 10/21/22 10/21/22 10/21/22 Range/Units 12:17 12:17 12:17 WBC 12.45 H (4.8-10.8) K/ul RBC 4.72 (4.20-5.40) M/uL Hgb 15.2 (12.0-16.0) g/dl Hct 42.8 (37.0-47.0) % MCV 90.7 (80.0-100.0) fL MCH 32.2 (25.0-34.0) pg MCHC 35.5 (32.0-36.0) g/dL RDW Std Deviation 40.5 (36.4-46.3) fL RDW Coeff of Riana 12.1 (11.5-14.5) % Plt Count 420 H (130-400) K/uL MPV 9.5 (9.4-12.4) fL Immature Gran % (Auto) 0.6 % Neut % (Auto) 81.3 % Lymph % (Auto) 6.1 % Salem % (Auto) 11.6 % Eos % (Auto) 0.2 % Baso % (Auto) 0.2 % Neut # (Auto) 10.12 H (1.40-6.50) K/uL Lymph # (Auto) 0.76 L (1.2-3.4) K/uL Salem # (Auto) 1.44 H (0.11-0.59) K/uL Eos # (Auto) 0.02 (0-0.50) K/uL Baso # (Auto) 0.03 (0-0.2) K/uL Immature Gran # (Auto) 0.08 (0.01-0.20) K/uL PT 11.4 (9.0-12.0) Seconds INR 1.1 (0.9-1.1) APTT 26.8 (21.0-31.0) Seconds PTT Ratio 1.0 Sodium 130 L (136-145) mmol/L Potassium 2.3 L* (3.5-5.1) mmol/L Chloride 96 L (98-107) mmol/L Carbon Dioxide 22 (21-32) mmol/L Anion Gap 12 H (3-11) BUN 5 L (6-23) mg/dl Creatinine 0.53 L (0.6-1.2) mg/dl Est Cr Clr Drug Dosing 98.7 ml/min Est GFR ( Amer) 117.9 ml/min Est GFR (Non-Af Amer) 101.8 ml/min BUN/Creatinine Ratio 9.4 L (10-20) Glucose 118 H (70-99(Fasting)) mg/dl Calcium 8.8 (8.6-10.3) mg/dl Magnesium 2.0 (1.7-2.4) mg/dl Total Bilirubin 0.7 (0.2-1.0) mg/dl Direct Bilirubin 0.1 (0-0.2) mg/dl AST 17 (13-39) U/L ALT 9 (7-52) U/L Alkaline Phosphatase 133 H (34-104) U/L Troponin I High Sens 13.7 (0-14) pg/ml Total Protein 6.6 (6.0-8.3) gm/dl Albumin 3.0 L (3.4-5.0) gm/dl SARS-CoV-2, RNA, NAAT (NEGATIVE) 10/21/22 Range/Units 12:35 WBC (4.8-10.8) K/ul RBC (4.20-5.40) M/uL Hgb (12.0-16.0) g/dl Hct (37.0-47.0) % MCV (80.0-100.0) fL MCH (25.0-34.0) pg MCHC (32.0-36.0) g/dL RDW Std Deviation (36.4-46.3) fL RDW Coeff of Riana (11.5-14.5) % Plt Count (130-400) K/uL MPV (9.4-12.4) fL Immature Gran % (Auto) % Neut % (Auto) % Lymph % (Auto) % Salem % (Auto) % Eos % (Auto) % Baso % (Auto) % Neut # (Auto) (1.40-6.50) K/uL Lymph # (Auto) (1.2-3.4) K/uL Salem # (Auto) (0.11-0.59) K/uL Eos # (Auto) (0-0.50) K/uL Baso # (Auto) (0-0.2) K/uL Immature Gran # (Auto) (0.01-0.20) K/uL PT (9.0-12.0) Seconds INR (0.9-1.1) APTT (21.0-31.0) Seconds PTT Ratio Sodium (136-145) mmol/L Potassium (3.5-5.1) mmol/L Chloride (98-107) mmol/L Carbon Dioxide (21-32) mmol/L Anion Gap (3-11) BUN (6-23) mg/dl Creatinine (0.6-1.2) mg/dl Est Cr Clr Drug Dosing ml/min Est GFR ( Amer) ml/min Est GFR (Non-Af Amer) ml/min BUN/Creatinine Ratio (10-20) Glucose (70-99(Fasting)) mg/dl Calcium (8.6-10.3) mg/dl Magnesium (1.7-2.4) mg/dl Total Bilirubin (0.2-1.0) mg/dl Direct Bilirubin (0-0.2) mg/dl AST (13-39) U/L ALT (7-52) U/L Alkaline Phosphatase (34-104) U/L Troponin I High Sens (0-14) pg/ml Total Protein (6.0-8.3) gm/dl Albumin (3.4-5.0) gm/dl SARS-CoV-2, RNA, NAAT NEGATIVE (NEGATIVE) Administered Medications Acetaminophen (Acetaminophen 325 Mg Tab) 650 mg PO Q4H PRN PRN Reason: Pain or Fever Stop: 11/20/22 13:39 Last Admin: 10/22/22 11:50 Dose: 650 mg Documented By: [id number] Citalopram Hydrobromide (Citalopram 40 Mg Tab) 40 mg PO QAM [facility] Stop: 11/21/22 08:59 Last Admin: 10/22/22 08:21 Dose: 40 mg Documented By: [id number] Famotidine (Famotidine 20 Mg Tab) 20 mg PO BID [facility] Stop: 11/20/22 20:59 Last Admin: 10/22/22 08:22 Dose: 20 mg Documented By: [id number] Admin: 10/21/22 22:08 Dose: 20 mg Documented By: CB Fentanyl (Fentanyl 12 Mcg/Hr Tdsy) 12 mcg TD Q3D@0900 [facility] Stop: 11/04/22 17:59 Last Admin: 10/21/22 18:38 Dose: 12 mcg Documented By: MG Pantoprazole Sodium 40 mg/ (Syringe) 10 mls @ 5 mls/min IV BID [facility] Stop: 11/20/22 20:59 Last Admin: 10/22/22 08:22 Dose: 5 mls/min Documented By: [id number] Admin: 10/21/22 22:08 Dose: 5 mls/min Documented By: LYRIC Prochlorperazine 5 mg/ Syringe 5 mls @ 5 mls/min IV Q6H PRN PRN Reason: Nausea And Vomiting Stop: 11/21/22 10:12 Last Admin: 10/22/22 10:42 Dose: 5 mls/min Documented By: [id number] Loratadine (Loratadine 10 Mg Tab) 10 mg PO QAM [facility] Stop: 11/21/22 08:59 Last Admin: 10/22/22 08:22 Dose: 10 mg Documented By: [id number] Miscellaneous (Fentanyl Patch Remove & Waste) 1 each N/A Q3D@0900 [facility] Stop: 11/20/22 17:59 Last Admin: 10/21/22 18:41 Dose: Not Given Documented By: MG Forrestcellaneous (Check Fentanyl Patch Placement) 1 each N/A QS [facility] Stop: 11/21/22 00:00 Last Admin: 10/22/22 07:27 Dose: 1 each Documented By: [id number] Admin: 10/21/22 22:40 Dose: 1 each Documented By: LYRIC Forrestcelljack (Remove Nicoderm Patch) 1 each N/A DAILY@0859 [facility] Stop: 11/21/22 08:58 Last Admin: 10/22/22 09:28 Dose: 1 each Documented By: [id number] Nicotine (Nicotine 14 Mg/24 Hr Patch) [facility] Stop: 11/21/22 08:59 Last Admin: 10/22/22 09:27 Dose: 14 mg Documented By: [id number] Sucralfate (Sucralfate 1 Gm/10 Ml Udc) 1 gm PO QID [facility] Stop: 11/20/22 16:59 Last Admin: 10/22/22 12:56 Dose: Not Given Documented By: [id number] Admin: 10/22/22 08:22 Dose: 1 gm Documented By: [id number] Admin: 10/21/22 22:08 Dose: 1 gm Documented By: Admin: 10/21/22 18:30 Dose: 1 gm Documented By: MG Discontinued Medications Diphenhydramine HCl (Diphenhydramine 50 Mg/Ml Vial) 50 mg IV NOW STA Stop: 10/21/22 12:05 Last Admin: 10/21/22 12:23 Dose: 50 mg Documented By: VAISHALI Hydromorphone HCl (Hydromorphone Inj 0.5 Mg/0.5 Ml Syr) 0.5 mg IV NOW STA Stop: 10/21/22 12:05 Last Admin: 10/21/22 12:23 Dose: 0.5 mg Documented By: VAISHALI Hydromorphone HCl (Hydromorphone Inj 0.5 Mg/0.5 Ml Syr) 0.25 mg IV Q6H PRN PRN Reason: Pain Stop: 11/04/22 14:28 Last Admin: 10/22/22 09:04 Dose: 0.25 mg Documented By: [id number] Pantoprazole Sodium 80 mg/ (Dextrose) 100 mls @ 400 mls/hr IV ONE STA Stop: 10/21/22 12:18 Last Infusion: 10/21/22 12:45 Dose: 0 mls/hr Documented By: Admin: 10/21/22 12:26 Dose: 400 mls/hr Documented By: VAISHALI Prochlorperazine (Compazine) 1 mls @ 1 mls/min IV ONE ONE Stop: 10/21/22 12:05 Last Admin: 10/21/22 12:24 Dose: 1 mls/min Documented By: VAISHALI Sodium Chloride (Nss 1000ml) 1,000 mls @ 999 mls/hr IV .Q1H1M ONE Stop: 10/21/22 13:04 Last Infusion: 10/21/22 13:31 Dose: 0 mls/hr Documented By: Admin: 10/21/22 12:23 Dose: 999 mls/hr Documented By: VAISHALI Potassium Chloride/Sodium Chloride (Normal Saline W/20 Meq Kcl) 20 meq in 1,000 mls @ 100 mls/hr IV .Q10H [facility]; Protocol Stop: 10/22/22 10:29 Last Admin: 10/21/22 23:33 Dose: Not Given Documented By: LYRIC Potassium Chloride 40 meq/ (Sodium Chloride) 1,020 mls @ 100 mls/hr IV .[id number] [facility] Stop: 10/22/22 13:38 Last Infusion: 10/22/22 16:03 Dose: 0 mls/hr Documented By: [id number] Admin: 10/22/22 03:00 Dose: 100 mls/hr Documented By: Infusion: 10/22/22 03:00 Dose: 100 mls/hr Documented By: Admin: 10/21/22 18:25 Dose: 100 mls/hr Documented By: MG Potassium Chloride (K Juan / Wtr) 10 meq in 100 mls @ 100 mls/hr IV Q1H [facility] Stop: 10/22/22 06:14 Last Infusion: 10/22/22 08:21 Dose: 0 mls/hr Documented By: [id number] Infusion: 10/22/22 06:19 Dose: 50 mls/hr Documented By: Admin: 10/22/22 06:18 Dose: 80 mls/hr Documented By: Infusion: 10/22/22 06:18 Dose: 80 mls/hr Documented By: Admin: 10/22/22 06:18 Dose: 80 mls/hr Documented By: Infusion: 10/22/22 05:56 Dose: 80 mls/hr Documented By: Infusion: 10/22/22 05:18 Dose: 80 mls/hr Documented By: Admin: 10/22/22 03:00 Dose: 100 mls/hr Documented By: Infusion: 10/22/22 03:00 Dose: 100 mls/hr Documented By: Admin: 10/22/22 02:59 Dose: 100 mls/hr Documented By: LYRIC Nicotine (Nicotine 14 Mg/24 Hr Patch) 14 mg TD NOW ONE Stop: 10/21/22 15:01 Last Admin: 10/21/22 18:28 Dose: 14 mg Documented By: MG Ondansetron HCl (Ondansetron Inj 2 Mg/Ml 2 Ml Vial) 4 mg IV Q6H PRN PRN Reason: Nausea Stop: 11/20/22 13:39 Last Admin: 10/22/22 07:27 Dose: 4 mg Documented By: [id number] Potassium Chloride (Potassium Chloride 20 Meq/15 Ml Udc) 40 meq PO NOW STA Stop: 10/21/22 18:03 Last Admin: 10/21/22 18:32 Dose: 40 meq Documented By: MG Potassium Chloride (Potassium Chloride 20 Meq/15 Ml Udc) 20 meq PO NOW ONE Stop: 10/22/22 02:16 Last Admin: 10/22/22 03:01 Dose: 20 meq Documented By: LYRIC Discharge Plan Visit Data Chief Complaint: Vomiting Stated Complaint: VOMITING BLOOD ED Provider: Tito Reina Discharge Problem: Intractable nausea and vomiting, Hypokalemia, Cancer related pain Patient Disposition: Admitted As Inpatient Discharge Instructions Interventions: ED Discharge Assessment Last Done: 10/21/22 17:39
[2022-10-21 12:56] LABS: Basophils # (auto) 0.03 K/uL (0-0.2); Basophils % (auto) 0.2 %; Eosinophils # (auto) 0.02 K/uL (0-0.50); Eosinophils % (auto) 0.2 %; Hematocrit (blood only) 42.8 % (37.0-47.0); Hemoglobin 15.2 g/dl (12.0-16.0); Immature Granulocytes # (auto) 0.08 K/uL (0.01-0.20); Immature Granulocytes % (auto) 0.6 %; Lymphocytes # (auto) 0.76 K/uL (1.2-3.4); Lymphocytes % (auto) 6.1 %; Mean Corpuscular Hemoglobin 32.2 pg (25.0-34.0); Mean Corpuscular Hgb Conc 35.5 g/dL (32.0-36.0); Mean Corpuscular Volume 90.7 fL (80.0-100.0); Mean Platelet Volume 9.5 fL (9.4-12.4); Monocytes # (auto) 1.44 K/uL (0.11-0.59); Monocytes % (auto) 11.6 %; Neutrophils # (auto) 10.12 K/uL (1.40-6.50); Neutrophils % (auto) 81.3 %; Platelet Count 420 K/uL (130-400); RDW Coefficient of Variation 12.1 % (11.5-14.5); RDW Standard Deviation 40.5 fL (36.4-46.3); Red Blood Count 4.72 M/uL (4.20-5.40); White Blood Count 12.45 K/ul (4.8-10.8)
[2022-10-21 13:11] LABS: BUN Creatinine Ratio 9.4 (10-20); Bilirubin Direct 0.1 mg/dl (0-0.2); Bilirubin,Total 0.7 mg/dl (0.2-1.0); Calcium 8.8 mg/dl (8.6-10.3); Creatinine Clr Calc Pharmacy 98.7 ml/min; Est GFR (African American) 117.9 ml/min; Est GFR (Non-African American) 101.8 ml/min; Potassium 2.3 mmol/L (3.5-5.1); Total Protein 6.6 gm/dl (6.0-8.3)
[2022-10-21 13:12] LABS: Troponin I High Sensitivity 13.7 pg/ml (0-14)
[2022-10-21 13:13] LABS: INR 1.1 (0.9-1.1); Partial Thromboplastin Time 26.8 Seconds (21.0-31.0); Prothrombin Time 11.4 Seconds (9.0-12.0)
[2022-10-21] MEDS ORDERED: MAGNESIUM HYDROXIDE SUSP 30 ML UDC PO PRN (13:40)
[2022-10-21] MEDS ORDERED: ALUMINUM/MAGNESIUM SUSP 30 ML UDC PO PRN (13:40)
[2022-10-21] MEDS ORDERED: ONDANSETRON INJ 2 MG/ML 2 ML VIAL IV PRN (13:40)
[2022-10-21] MEDS ORDERED: POLYETHYLENE (MIRALAX) 17 GM PACK PO PRN (13:40)
--- NOTE | 2022-10-21 13:50 | History & Physical Report ---
Date of Service October 21, 2022 Assessment & Plan (1) Stage IV adenocarcinoma of lung: (2) Acute hypokalemia: (3) Dehydration: (4) Goals of care, counseling/discussion: Plan 61 y/o with stage IV adenocarcinoma; presents with N/V and pain. Being followed by heme/onc and palliative last admission. Overall, with functional decline; would benefit from continuation of palliative medicine goals of care conversation. Stage IV adenocarcinoma of the lung: Dx with EBUS FNA in August bone mets; follows with Dr. Hallman; last appt 10/17 pulmonary mass with mediastinal and biateral hilar lymphadenopathy Completed Radx 09/19 Follows with Palliative Medicine as OPT Dr. Hallman on 10/17 who has stated that with her current performance status it would be unlikely she would do well with chemotherapy. She has been informed by Dr. Hallman that there is no curative option for therapy and that pursuing an investigational option may lead to shortening her life further with the toxicities associated with treatment. Salvage therapy was not a consideration at that time due to her functional performance. Nausea and Vomiting: x5 days; unable to keep meds down; some hematemesis; suspect to be related to strain Mostly phlegm Received Benadryl and Phenergan in ED with relief Received Protonix IV Hgb 15.2; will trend; do not suspect GIB. continue Zofran and Promethazine; consider SL Haldol if no improvement Hypokalemia: Secondary to emesis K+ on admission 2.3; no ectopy or arrhythmias noted Unable to tolerate PO at this time - will try later as N/V improves. NSS with 40 mEq KCL at 100ml/hr. recheck labs in PM and karina AM and adjust fluids/electrolytes as necessary Cancer related pain: As OPT takes Oxycodone 5 mg PO Q 4 PRN; has been taking 56 times per day but immediately throws up has been discussed about taking a long-acting opioid as she is not opioid naive and she is receptive to such. As PO intake is poor, for now considering low dose Fentanyl patch for long acting control and Dilaudid IV for breakthrough; recognizing this is not the best outside cutter solution to her pain. Goals of care; counseling/discussion: -Last admission patient was seen by palliative medicine and per review of that note it appears that the family was understandably quite overwhelmed with the new diagnosis and results and having overall goals of care conversation was clark ited at that time; stating that she will take this 1 day at a time with her goal being pain management and pursuing treatment. Patient has met with [facility]iative Medicine as an outpatient on 09/30. Today, she said that she has entered the 'acceptance' phase of her illness. She said that she enjoys watching tv, going on her porch outside and does not feel that she has anything left undone in her life. She said that she has done a lot of thinking about kids with cancer and recognizes that she has had 61 years of a good life. I did validate that it is still ok to feel sad about her own di agnosis. She said she has felt too weak to do anything and has led to her being depressed. -We had a lengthy conversation regarding code status and she is not sure she would want resuscitated but would like to discuss further with her . We did have discussion regarding feeding tubes and how that would fit into her goals overall, again, wishing to have further conversation with her ; which is understandable and supported. -We did discuss Hospice and she stated she was not sure what that word meant. We did discuss in detail that when we are unable to cure a disease, we shift focus to a more symptom management approach to allow time to embrace good days and ensure symptoms are controlled during less pleasant days. -Palliative Medicine consult placed Disposition: PCP: Dr. Johnson Code: Full code VTE Prophylaxis: Teds and SCDs for now I spent a total of 88 minutes coordinating, documenting, and providing care for this patient excluding time spent in the performance of separately billed services. All of the aforementioned completed while collaborating with the assigned attending physician for a full treatment plan. Please see their addendum for further details. History of Present Illness Chief Complaint: N/V Primary Care Provider: Gabino Johnson MD Ms. Hamilton is a 61-year-old female that presents to the ED with nausea, vomiting, and weakness. 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 Patient was recently admitted 08/27 to 08/31 for uncontrolled pain related to her disease process and she underwent endoscopic decompressive paravertebral block for pain control. An EBUS FNA was performed to diagnose preliminary primary. Additional pulmonary mass with mediastinal and bilateral hilar lymphadenopathy was identified as well. She has completed radiation therapy to T-spine and left chest wall on 09/19/22. Last admission patient was seen by palliative medicine and per review of that note it appears that the family was quite overwhelmed with the new diagnosis and results and having overall goals of care conversation was limited at that time; stating that she will take this 1 day at a time with her goal being pain management and pursuing treatment. Patient has been seen by Dr. Hallman on 10/17 who has stated that with her current performance status it would be unlikely she would do well with chemotherapy. She has been informed by Dr. Hallman that there is no curative option for therapy and that pursuing an investigational option may lead to shortening her life further with the toxicities associated with treatment. As of that conversation, salvage therapy was not a consideration at that time due to her functional performance. Patient has met with [facility] Medicine as an outpatient on 09/30 and she advised she was looking forward to her upcoming appointment with Dr. Hallman on 10/17 to discuss treatment options. Patient was stating at that time she continued to want to be aggressive with her care. Today, I met with Ms. Hamilton alone in her hospital room. Her was not present. In speaking with Ms. Hamilton today she said that she has entered the 'acceptance' phase of her illness. She said that she enjoys watching tv, goingon her porch outside and does not feel that she has anything left undone in her life. She said that she has done a lot of thinking about kids with cancer and recognizes that she has had 62 years of a good life. I did validate that it is still ok to feel sad about her own diagnosis. She said she has felt too weak to do anything and has led to her being depressed. We had a lengthy conversation regarding code status and she is not sure she would want resuscitated but would like to discuss further with her . We did have discussion regarding feeding tubes and how that would fit into her goals overall, again, wishing to have further conversation with her ; which is understandable and supported. She said that she has not been able to take any of her Oxycodone over the past few days due to her persistent nausea. We did discuss long acting approach to her pain control as she is not opioid naive. She was receptive to a fentanyl patch; while overall, oral long acting would be preferred. Additional PMH includes allergic rhinitis, hypertension, and GERD. Patient reports she is still smoking but has not been able to the past few days. Patient will be admitted for further evaluation and management. Please see A/P for further details Allergies Allergy/AdvReac Type Severity Reaction Status Date / Time No Known Allergies Allergy Verified 10/21/22 13:43 Home Medications Medication Instructions Recorded Confirmed Type citalopram 40 mg tablet (Celexa) 40 mg PO QAM 12/19/19 10/21/22 History desloratadine 5 mg tablet 5 mg PO QAM 12/19/19 10/21/22 History (Clarinex) omeprazole 40 mg capsule,delayed 40 mg PO DAILYBB 08/26/22 10/21/22 History release umeclidinium 62.5 mcg-vilanterol 1 ea inhalation DAILY 30 days #60 08/31/22 10/21/22 Rx 25 mcg/actuation powdr for ea inhalation (Anoro Ellipta) oxycodone 5 mg tablet 5 mg PO Q4H PRN pain #30 tabs 09/23/22 10/21/22 Rx prochlorperazine maleate 5 mg 5 mg PO TID PRN nausea and 09/23/22 10/21/22 Rx tablet (Compazine) vomiting #30 tabs Potassium Tab 1 tab PO DIRECTED 10/17/22 10/21/22 History famotidine 20 mg tablet 20 mg PO BID #20 tabs 10/17/22 10/21/22 Rx sucralfate 100 mg/mL oral 10 ml PO QID #420 mL 10/17/22 10/21/22 Rx suspension (Carafate) Past Med/Surg History Medical History (Updated 10/21/22 @ 13:49 by CHRISTINE Faust) Bone metastasis COPD with emphysema Goals of care, counseling/discussion Hypercalcemia LAD (lymphadenopathy), mediastinal Metastatic cancer Multiple pulmonary nodules Pathological fracture of rib of left side Stage IV adenocarcinoma of lung Surgical History H/O breast biopsy Right 01/03/2009 History of laminectomy left T7-8 endoscopic discectomy 02/01/[address] Holt [facility] [place] History of tonsillectomy and adenoidectomy 1986 History of total hysterectomy 2007 Social History Smoking Status: Current every day smoker Tobacco Type: Cigarettes Second Hand Exposure: Yes; Hx Alcohol Use: Yes Alcohol type: hard liquor Preferred Language: Jamaican Communication Ability: Effective Operations/Dispatch Required: No Beliefs That Will Affect Care: None Current Living Situation: Spouse Feels Safe at Home: Yes Assistive Devices: None Review of Systems Review of Systems: Neuro: (-) Falls, trauma, slurred speech HEENT: (-) DUNLAP, dizziness, dysphagia, visual or auditory changes CV: (-) CP, palpitations, swelling Resp: (-) SOB GI: (-) appetite changes, N/V/D, bowel changes : (-) urinary changes Skin: (-) rashes Psych: (-) anxiety, depression Physical Exam Physical Exam: Neuro: AAOx4, PERRLA, no aphagia, memory changes, CNII-XII grossly intact HEENT: head normocephalic, moist mucus membranes CV: S1/S2, (-) M/G/R, (-) edema, cap refill < 3 seconds Resp: Lungs CTA in all conner. On RA GI: Abdomen S/NT/ND, Ax4 bowel sounds, (-) CVA tenderness Musculoskeletal: 5/5 B/L UE strength, 5/5 B/L LE strength. No gait disturbance Skin: (-) rashes , (-) erythema. Psych: euthymic mood Results & Data Results & Data Vital Signs (Past 12 Hours) Vital Signs Temp Pulse Pulse Resp BP BP Pulse Ox 10/21/22 12:32 86 16 105/72 99 10/21/22 11:35 36.7 C 108 H 18 118/80 97 O2 Del Method 10/21/22 12:32 Room Air 10/21/22 11:35 Room Air Laboratory Results Short CBC 10/21/22 Range/Units 12:17 WBC 12.45 H (4.8-10.8) K/ul Hgb 15.2 (12.0-16.0) g/dl Hct 42.8 (37.0-47.0) % Plt Count 420 H (130-400) K/uL BMP 10/21/22 12:17 Sodium 130 L Potassium 2.3 L* Chloride 96 L Carbon Dioxide 22 BUN 5 L Creatinine 0.53 L Glucose 118 H Calcium 8.8 Liver Function 10/21/22 Range/Units 12:17 Total Bilirubin 0.7 (0.2-1.0) mg/dl Direct Bilirubin 0.1 (0-0.2) mg/dl AST 17 (13-39) U/L ALT 9 (7-52) U/L Alkaline Phosphatase 133 H (34-104) U/L Albumin 3.0 L (3.4-5.0) gm/dl Code Status & VTE Plan Code Status full code in the event of cardiac or respiratory arrest VTE Prophylaxis Plan VTE Prophylaxis will be ordered: Yes Supervising Physician Co-Signing Physician Notes 61-year-old lady with PMH of recent diagnosis of stage IV adenocarcinoma of the lung with bone metastasis, pathological fracture of left rib, COPD, current tobacco use presented to the ED with complaint of persistent nausea, vomiting, dry heaves that has been worsening since last 4 to 5 days and patient not able to eat any food or drink any fluids or take her meds lately. Patient reports left-sided lower chest pain which has been there since diagnosis of cancer, has been taking oxycodone at home. Patient follows Dr. Hallman as an outpatient, and has been made aware regarding no curative option for her current condition. Patient did undergo radiation early September, has been in follow-up with [facility] palliative medicine as an outpatient. Labs reviewed, leukocytosis noted likely secondary to dehydration. Low potassium, replete. Monitor in AM. Continue with IV fluids at 100 mils an hour with 40 mEq KCl in 1 L NSS. Aim to replete about 100 mEq of potassium by tomorrow a.m. labs. Continue pain management. Continue with Zofran and promethazine for nausea and vomiting. Continue goals of care discussion. PO KCL supplement as tolerated. On exam: GENERAL: Alert and oriented x3. NAD, on RA. Appears chronically ill/weak/frail. HEENT: No pallor, no icterus. Pupils equal, round and reactive to light. Oral mucosa dry. NECK: No JVD, no neck masses. HEART: S1 and S2 heard. Regular rate and rhythm. No murmur, no gallop. RESPIRATORY SYSTEM: Normal AP diameter. No accessory muscle use. No wheezing, no crackles. Lt anterior lower chest tender. ABDOMEN: Soft, bowel sounds present, nontender, no distention. CENTRAL NERVOUS SYSTEM: No facial droop. Speech is clear. Obeys simple commands. Moves extremities. EXTREMITIES: trace ble edema, no erythema seen. I have seen and examined the patient and have discussed the case with the provider above. I agree with the assessment and plan as stated.
[2022-10-21] MEDS ORDERED: HYDROmorphone INJ 0.5 MG/0.5 ML SYR IV PRN (14:29)
[2022-10-21] MEDS ORDERED: NSS + 20MEQ KCL 20 MEQ/1,000 ML BAG IV SCH (14:30)
[2022-10-21] MEDS ORDERED: NICOTINE 14 MG/24 HR PATCH TD ONE (15:00)
[2022-10-21] MEDS ORDERED: POTASSIUM CHLORIDE 20 MEQ/15 ML UDC PO STA (18:02)
[2022-10-21] MEDS: POTASSIUM CHLORIDE 40 MEQ in SODIUM CHLORIDE 0.9% 1000ML 1,000 ML IV SCH (18:25)
[2022-10-21] MEDS: SUCRALFATE 1 GM/10 ML UDC PO SCH ×2 (18:30→22:08)
[2022-10-21] MEDS: fentaNYL 12 MCG/HR TDSY TD SCH (18:38)
[2022-10-21] MEDS: FAMOTIDINE 20 MG TAB PO SCH (22:08)
[2022-10-21] MEDS: PANTOprazole 40 MG in SYRINGE 0 ML IV SCH (22:08)
[2022-10-21] MEDS: CHECK fentaNYL PATCH PLACEMENT SCH (22:40)
[2022-10-22 00:23] LABS: BUN Creatinine Ratio 7.8 (10-20); Creatinine Clr Calc Pharmacy 102.6 ml/min; Est GFR (African American) 119.4 ml/min; Est GFR (Non-African American) 103.1 ml/min; Potassium 2.7 mmol/L (3.5-5.1)
[2022-10-22] MEDS ORDERED: POTASSIUM CHLORIDE 20 MEQ/15 ML UDC PO ONE (02:15)
[2022-10-22] MEDS: POTASSIUM CHLORIDE / WTR 10 MEQ/100 ML PLCT IV SCH ×3 (02:59→06:18)
[2022-10-22] MEDS: POTASSIUM CHLORIDE 40 MEQ in SODIUM CHLORIDE 0.9% 1000ML 1,000 ML IV SCH (03:00)
[2022-10-22 03:55] LABS: Appearance Urine Cloudy (Clear); Bacteria Urine Automated Negative (Negative); Bilirubin Urine Negative (Negative); Blood Urine Negative (Negative); Color Urine Yellow; Epithelial Cell Urine Auto >30 /lpf (0-5); Glucose Urine UA Negative (Negative); Ketones Urine Negative (Negative); Leukocyte Esterase Urine Negative (Negative); Nitrite Urine Negative (Negative); Protein Urine Negative (Negative); RBC Urine Automated 0-4 /hpf (0-4); Specific Gravity Urine 1.006 (1.000-1.030); Urobilinogen Urine Negative (Negative)
[2022-10-22] MEDS ORDERED: NON-FORMULARY MEDICATION (Omeprazole 40 mg capsule,delayed release(DR/EC)) PO SCH (06:30)
[2022-10-22 06:35] LABS: Hemoglobin 14.1 g/dl (12.0-16.0); Mean Corpuscular Hemoglobin 32.3 pg (25.0-34.0); Mean Corpuscular Hgb Conc 35.3 g/dL (32.0-36.0); Mean Corpuscular Volume 91.5 fL (80.0-100.0); Mean Platelet Volume 9.4 fL (9.4-12.4); Platelet Count 347 K/uL (130-400); RDW Coefficient of Variation 11.9 % (11.5-14.5); RDW Standard Deviation 40.4 fL (36.4-46.3); Red Blood Count 4.37 M/uL (4.20-5.40); White Blood Count 9.86 K/ul (4.8-10.8)
[2022-10-22] MEDS: CHECK fentaNYL PATCH PLACEMENT SCH ×2 (07:27→16:12)
[2022-10-22 07:34] LABS: Albumin Globulin Ratio 0.8 (0.9-2); Albumin Level 2.5 gm/dl (3.4-5.0); Bilirubin,Total 0.6 mg/dl (0.2-1.0); Calcium 7.9 mg/dl (8.6-10.3); Creatinine Clr Calc Pharmacy 103.7 ml/min; Est GFR (African American) 120.2 ml/min; Est GFR (Non-African American) 103.7 ml/min; Globulin 3.1 gm/dl (2.5-4.0); Potassium 3.2 mmol/L (3.5-5.1); Total Protein 5.6 gm/dl (6.0-8.3)
--- NOTE | 2022-10-22 07:52 | Hospitalist Progress Note ---
Date of Service October 22, 2022 Assessment & Plan (1) Stage IV adenocarcinoma of lung: (2) Acute hypokalemia: (3) Dehydration: (4) Hyponatremia: (5) Hypomagnesemia: Plan 61 y/o with stage IV adenocarcinoma; presents with N/V and pain. Stage IV adenocarcinoma of the lung: Dx with EBUS FNA in August bone mets; follows with Dr. Hallman; last appt 10/17 pulmonary mass with mediastinal and bilateral hilar lymphadenopathy Completed Radx 09/19 Follows with Palliative Medicine as OPT Dr. Hallman on 10/17 who has stated that with her current performance status it would be unlikely she would do well with chemotherapy. She has been informed by Dr. Hallman that there is no curative option for therapy and that pursuing an investigational option may lead to shortening her life further with the toxicities associated with treatment. Salvage therapy was not a consideration at that time due to her functional performance. Nausea and Vomiting: x5 days; unable to keep meds down; some hematemesis; suspect to be related to strain Mostly phlegm Received Benadryl and Phenergan in ED with relief Continues on Protonix Monitor Hb schedule Zofran to gete ahead of nausea, cont IVF, Compazine PRN per palliative Hypokalemia/hypomag: Secondary to emesis Improved with replacement. Daily BMP Hyponatremia: secondary to persistent nausea and vomiting in combination with poor PO intake and vomiting she is hypovolemic/dehydrated on exam repeat BMP this afternoon shows improvement with IVF, cont for now and repeat frequently. Schedule antiemetics for now. Cancer related pain: As OPT takes Oxycodone 5 mg PO Q 4 PRN; not been able to keep this down causing more uncontrolled pain, fentanyl patch in place. As PO intake is poor, for now considering low dose Fentanyl patch for long acting control and Dilaudid IV for breakthrough Adding back gabapentin as this was helpful before and may help reduce the amount of narcotics needed. Goals of care; counseling/discussion: Palliative medicine involved in care Disposition: PCP: Dr. Johnson Code: Full code VTE Prophylaxis: Teds and SCDs for now I spent a total of 60 minutes coordinating, documenting, and providing care for this patient excluding time spent in the performance of separately billed services Leidy Hernandez DO [facility] Hospitalist Admission and Anticipated Discharge Date Admission Date: October 21, 2022 Subjective 61 yo F with persistent nausea, vomiting and uncontrolled pain. Known Stage IV lung cancer, not on treatment at this time because of deconditioning. still having dry heaves/vomiting IV antiemetics are somewhat working and the IV pain medication helps but doesn't last long her pain is exquisite along her left breast and chest wall even to touch her skin makes her jump back from pain she reports some success with gabapentin, but had stopped this recently because she didn't feels this was nerve pain difficulty keeping down the oxy IR pills at home fentanyl patch in place but she cannot tell a difference with pain control yet. Just placed yesterday no clear trigger to her nausea. Physical Exam Physical Exam: CONSTITUTIONAL: WNWD, vitals as above, NAD EYES: normal conjunctivae, no scleral icterus ENT: external ear and nose normal, MMM NECK: trachea midline RESPIRATORY: clear to auscultation bilaterally, no crackles, rales or wheezes, normal respiratory effort CARDIOVASCULAR: regular rate and rhythm, S1 and 2 heard without murmurs, gallops or rubs, no JVD, no peripheral edema, CHEST: inspection of chest was normal, however, there is exquisite tenderness on left lateral breast and lateral chest wall on left. GASTROINTESTINAL: soft, nontender, ND no guarding MUSCULOSKELETAL: strength 5/5 throughout, head is normocephalic and atraumatic, neck supple, normal palpation of chest wall without tenderness SKIN: warm and dry NEUROLOGIC: CN 2-12 grossly intact, no sensory deficit, normal cognition, normal speech, no tremor PSYCHIATRIC: alert cooperative and oriented to person, place and time. Euthymic mood, makes good eye contact, language grossly intact, recent and remote memory grossly intact. Results & Data Results & Data Vital Signs (Past 12 Hours) Vital Signs Temp Pulse Pulse Resp BP Pulse Ox O2 Del Method 10/22/22 07:43 36.6 C 96 H 18 101/69 98 Room Air 10/22/22 00:20 Room Air 10/22/22 03:45 36.6 C 93 H 20 113/76 100 Nasal Cannula 10/22/22 00:00 89 10/21/22 23:18 36.8 C 79 18 102/72 95 Room Air O2 Flow Rate 10/22/22 07:43 10/22/22 00:20 10/22/22 03:45 1 10/22/22 00:00 10/21/22 23:18 Laboratory Results Short CBC 10/21/22 10/22/22 Range/Units 12:17 06:02 WBC 12.45 H 9.86 (4.8-10.8) K/ul Hgb 15.2 14.1 (12.0-16.0) g/dl Hct 42.8 40.0 (37.0-47.0) % Plt Count 420 H 347 (130-400) K/uL BMP 10/21/22 10/21/22 10/22/22 12:17 23:04 06:02 Sodium 130 L 132 L 132 L Potassium 2.3 L* 2.7 L 3.2 L Chloride 96 L 103 105 Carbon Dioxide 22 21 21 BUN 5 L 4 L 4 L Creatinine 0.53 L 0.51 L 0.50 L Glucose 118 H 110 H 95 Calcium 8.8 8.0 L 7.9 L Liver Function 10/21/22 10/22/22 Range/Units 12:17 06:02 Total Bilirubin 0.7 0.6 (0.2-1.0) mg/dl Direct Bilirubin 0.1 (0-0.2) mg/dl AST 17 16 (13-39) U/L ALT 9 9 (7-52) U/L Alkaline Phosphatase 133 H 98 (34-104) U/L Albumin 3.0 L 2.5 L (3.4-5.0) gm/dl Urine 10/22/22 Range/Units 03:15 Urine Color Yellow Urine Appearance Cloudy A (Clear) Urine pH 8.0 H (4.5-7.5) Ur Specific [place] 1.006 (1.000-1.030) Urine Protein Negative (Negative) Urine Glucose (UA) Negative (Negative) Medications Administered Current Inpatient Medications Acetaminophen (Acetaminophen 325 Mg Tab) 650 mg PO Q4H PRN PRN Reason: Pain or Fever Stop: 11/20/22 13:39 Last Admin: 10/22/22 11:50 Dose: 650 mg Hydrocodone Bitart/Acetaminophen (Acetaminophen/Hydrocodone Elix 15 Ml/Cup) 10 ml PO Q6H PRN PRN Reason: severe pain Stop: 11/05/22 15:50 Last Admin: 10/22/22 22:11 Dose: 10 ml Al Hydrox/Mg Hydrox/Simethicone (Aluminum/Magnesium Susp 30 Ml Udc) 15 ml PO Q4H PRN PRN Reason: Dyspepsia Stop: 11/20/22 13:39 Citalopram Hydrobromide (Citalopram 40 Mg Tab) 40 mg PO QAM [facility] Stop: 11/21/22 08:59 Last Admin: 10/22/22 08:21 Dose: 40 mg Famotidine (Famotidine 20 Mg Tab) 20 mg PO BID [facility] Stop: 11/20/22 20:59 Last Admin: 10/22/22 21:06 Dose: 20 mg Fentanyl (Fentanyl 12 Mcg/Hr Tdsy) 12 mcg TD Q3D@0900 [facility] Stop: 11/04/22 17:59 Last Admin: 10/21/22 18:38 Dose: 12 mcg Gabapentin (Gabapentin 300 Mg Cap) 300 mg PO BID [facility] Stop: 11/21/22 20:59 Last Admin: 10/22/22 21:06 Dose: 300 mg Hydromorphone HCl (Hydromorphone Inj 0.5 Mg/0.5 Ml Syr) 0.25 mg IV Q4H PRN PRN Reason: Pain Stop: 11/04/22 14:28 Last Admin: 10/22/22 18:45 Dose: 0.25 mg Pantoprazole Sodium 40 mg/ (Syringe) 10 mls @ 5 mls/min IV BID [facility] Stop: 11/20/22 20:59 Last Admin: 10/22/22 21:06 Dose: 5 mls/min Prochlorperazine 5 mg/ Syringe 5 mls @ 5 mls/min IV Q6H PRN PRN Reason: Nausea And Vomiting Stop: 11/21/22 10:12 Last Admin: 10/22/22 21:05 Dose: 5 mls/min Loratadine (Loratadine 10 Mg Tab) [facility]: 11/21/22 08:59 Last Admin: 10/22/22 08:22 Dose: 10 mg Magnesium Hydroxide (Magnesium Hydroxide Susp 30 Ml Udc) 30 ml PO Q12H PRN PRN Reason: Constipation Stop: 11/20/22 13:39 Miscellaneous (Fentanyl Patch Remove & Waste) 1 each N/A Q3D@0900 [facility] Stop: 11/20/22 17:59 Last Admin: 10/21/22 18:41 Dose: Not Given Miscellaneous (Check Fentanyl Patch Placement) 1 each N/A QS [facility] Stop: 11/21/22 00:00 Last Admin: 10/23/22 02:08 Dose: 1 each Miscellaneous (Remove Nicoderm Patch) 1 each N/A DAILY@0859 [facility] Stop: 11/21/22 08:58 Last Admin: 10/22/22 09:28 Dose: 1 each Nicotine (Nicotine 14 Mg/24 Hr Patch) 14 mg TD QAM [facility] Stop: 11/21/22 08:59 Last Admin: 10/22/22 09:27 Dose: 14 mg Ondansetron HCl (Ondansetron Inj 2 Mg/Ml 2 Ml Vial) 4 mg IV Q8H [facility] Stop: 11/21/22 15:59 Last Admin: 10/23/22 02:08 Dose: 4 mg Polyethylene Glycol (Polyethylene (Miralax) 17 Gm Pack) 17 gm PO DAILY PRN PRN Reason: Constipation Stop: 11/20/22 13:39 Sucralfate (Sucralfate 1 Gm/10 Ml Udc) 1 gm PO QID [facility] Stop: 11/20/22 16:59 Last Admin: 10/22/22 21:06 Dose: 1 gm
[2022-10-22] MEDS: CITALOPRAM 40 MG TAB PO SCH (08:21)
[2022-10-22] MEDS: FAMOTIDINE 20 MG TAB PO SCH ×2 (08:22→21:06)
[2022-10-22] MEDS: LORATADINE 10 MG TAB PO SCH (08:22)
[2022-10-22] MEDS: SUCRALFATE 1 GM/10 ML UDC PO SCH ×4 (08:22→21:06)
[2022-10-22] MEDS: PANTOprazole 40 MG in SYRINGE 0 ML IV SCH ×2 (08:22→21:06)
[2022-10-22] MEDS: NICOTINE 14 MG/24 HR PATCH TD SCH (09:27)
--- NOTE | 2022-10-22 10:39 | Electrocardiogram Report ---
Test Reason : Blood Pressure : / mmHG Vent. Rate : 094 BPM Atrial Rate : 094 BPM P-R Int : 112 ms QRS Dur : 074 ms QT Int : 416 ms P-R-T Axes : 068 061 076 degrees QTc Int : 520 ms Poor data quality, interpretation may be adversely affected Sinus rhythm with Premature atrial complexes Diffuse Nonspecific ST abnormality Abnormal ECG When compared with ECG of 17-OCT-2022 12:00, No significant change Confirmed by Otoniel Whitfield ([id number]) on 10/22/2022 10:39:26 AM Referred By: REFERRED SELF Confirmed By:Otoniel Whitfield
[2022-10-22] MEDS: PROCHLORPERAZINE 5 MG in SYRINGE 4 ML IV PRN ×2 (10:42→21:05)
--- NOTE | 2022-10-22 11:35 | Palliative Care Consultation ---
Date of Consultation October 22, 2022 Assessment & Plan (1) Pain: With extensive metastic lung cancer. Known mets to T8 and T9 with pathologic rib fractures on left at 7 and 8 ribs. She has had some improvement with fentanyl. Pain management is also consulted. Could consider steroid with bony mets. (2) Nausea: Compazine added. She apparently had good relief with this in ER. Would also consider low dose zyprexa if symptoms persist (3) Palliative care encounter: I have spoken with Chiqui on her previous admission about her goals for care. She had been newly diagnosed and still processing the extent of her illness. At that time, she and her were interested in any available treatments to prolong her life. Chiqui does understand that additional treatment is not really an option for her. She tells me that she is trying to accept this idea. She feels that her will also have difficulty accepting this. She is trying to approach her illness on a day to day basis and focus on what is in front of her each day. I asked her what was most important to her today. She told me that getting relief from pain and nausea was most important. While a day to day focus can be a useful tool when coping with serious illness, we discussed importance of stepping back and looking at the big picture from time to time can help prevent crises and difficult immediate decisions. She acknowledges this. She did have a discussion about hospice with Beth Almanza in the ER but tells me that she's not readyto talk about that. I offered family meeting with Chiqui and her to talk a little more about the big picture and planning for her future. She is agreeable to this. Meeting scheduled for 10/24 at 11am History of Present Illness Reason for Consultation: goals of care Requesting Physician: CHRISTINE Johns Attending Physician: Leidy Hernandez DO History of Present Illness 61 yo lady known to palliative care with widely metastatic adenocarcinoma of the lung. She was admitted with nausea and vomiting not relieved with zofran at home. She had been unable to eat or keep down her medications at home. She tells me that she has had 40lb weight loss in six months. She had metastatic disease on initial presentation with T8 vertebral lesion extending to epidural and paravertebral spaces. She underwent palliative radiation therapy as well as endoscopic decompressive paravertebral block. She is followed by Dr. Columbus but with debility and diminished funtional status, is not an ideal candidate for further treatment. She is aware of this and tells me that she is "learning to accept it". She reports being independent for ADLs at home but has to rest for 30 minutes after showering. He helps her at home and they have a strong support network. She currently complains of nausea with emesis of straw colored fluid and pain in her left flank. She says that the pain is intermittent with no apparent triggers. It is severe at times and stabbing in nature. She had been on oxycodone at home but was unable to take this with her nausea and vomiting. She was started on a low dose fentanyl patch on admission yesterday. She has also had one dose of prn hydromorphone this morning. Allergies Allergy/AdvReac Type Severity Reaction Status Date / Time No Known Allergies Allergy Verified 10/21/22 13:43 Home Medications Medication Instructions Recorded Confirmed Type citalopram 40 mg tablet (Celexa) 40 mg PO QAM 12/19/19 10/21/22 History desloratadine 5 mg tablet 5 mg PO QAM 12/19/19 10/21/22 History (Clarinex) omeprazole 40 mg capsule,delayed 40 mg PO DAILYBB 08/26/22 10/21/22 History release umeclidinium 62.5 mcg-vilanterol 1 ea inhalation DAILY 30 days #60 08/31/22 10/21/22 Rx 25 mcg/actuation powdr for ea inhalation (Anoro Ellipta) oxycodone 5 mg tablet 5 mg PO Q4H PRN pain #30 tabs 09/23/22 10/21/22 Rx prochlorperazine maleate 5 mg 5 mg PO TID PRN nausea and 09/23/22 10/21/22 Rx tablet (Compazine) vomiting #30 tabs Potassium Tab 1 tab PO DIRECTED 10/17/22 10/21/22 History famotidine 20 mg tablet 20 mg PO BID #20 tabs 10/17/22 10/21/22 Rx sucralfate 100 mg/mL oral 10 ml PO QID #420 mL 10/17/22 10/21/22 Rx suspension (Carafate) Patient History Medical History Bone metastasis COPD with emphysema Goals of care, counseling/discussion Hypercalcemia LAD (lymphadenopathy), mediastinal Metastatic cancer Multiple pulmonary nodules Pathological fracture of rib of left side Stage IV adenocarcinoma of lung Surgical History H/O breast biopsy Right 01/03/2009 History of laminectomy left T7-8 endoscopic discectomy 02/01/[address] Holt [facility] [place] History of tonsillectomy and adenoidectomy 1986 History of total hysterectomy 2007 Social History Smoking Status: Current every day smoker Tobacco Type: Cigarettes Second Hand Exposure: No; Do You Dip or Chew Tobacco: No; Hx Alcohol Use: No Hx Substance Use: No Preferred Language: Armenian Communication Ability: Effective Public Information Officer Required: No Beliefs That Will Affect Care: None Current Living Situation: Spouse Feels Safe at Home: Yes Assistive Devices: None Review of Systems Review of Systems: Pain 2/3 Dyspnea 0/3 Nausea 2/3 Drowsiness 1/3 Physical Exam Constitutional: + ill appearing Respiratory: normal respiratory effort; no labored breathing Cardiovascular: Rate/Rhythm: regular rate and regular rhythm Gastrointestinal (Abdomen): LBM 4/3 Musculoskeletal: Extremities: + muscle atrophy Neurologic: Speech / Cognition: normal cognition Results & Data Vital Signs (Past 12 Hours) Vital Signs Temp Pulse Pulse Resp BP Pulse Ox O2 Del Method 10/22/22 07:00 87 10/22/22 07:45 Room Air 10/22/22 07:43 97.9 F 96 H 18 101/69 98 Room Air 10/22/22 00:20 Room Air 10/22/22 03:45 97.9 F 93 H 20 113/76 100 Nasal Cannula 10/22/22 00:00 89 10/21/22 23:18 98.2 F 79 18 102/72 95 Room Air O2 Flow Rate 10/22/22 07:00 10/22/22 07:45 10/22/22 07:43 10/22/22 00:20 10/22/22 03:45 1 10/22/22 00:00 10/21/22 23:18 PG Care Time/CCT Total # of Minutes Spent Total Time Spent: 48 Total Time Spent with Patient: Total time spent is greater than 50% in coordination of care (as documented) at patient's floor/unit and/or counseling patient:goals of care, symptom man agement, patient education and support Coding Level of Care Code 24486 INT INP/OBS CARE MIN Diagnoses Pain R52 Nausea R11.0 Palliative care encounter Z51.5
[2022-10-22] MEDS: ACETAMINOPHEN 325 MG TAB PO PRN (11:50)
[2022-10-22 13:02] LABS: Calcium 8.1 mg/dl (8.6-10.3); Magnesium 1.5 mg/dl (1.7-2.4); Potassium 3.5 mmol/L (3.5-5.1)
[2022-10-22 13:07] LABS: BUN Creatinine Ratio 6.5 (10-20); Creatinine Clr Calc Pharmacy 112.7 ml/min; Est GFR (African American) 123.6 ml/min; Est GFR (Non-African American) 106.6 ml/min
[2022-10-22] MEDS ORDERED: SODIUM CHLORIDE 0.9% IV SCH (15:45)
[2022-10-22] MEDS ORDERED: MAGNESIUM SULFATE IV SCH (15:45)
[2022-10-22] MEDS: ONDANSETRON INJ 2 MG/ML 2 ML VIAL IV SCH (16:15)
[2022-10-22] MEDS: HYDROmorphone INJ 0.5 MG/0.5 ML SYR IV PRN (18:45)
[2022-10-22 18:48] LABS: BUN Creatinine Ratio 7.5 (10-20); Calcium 7.9 mg/dl (8.6-10.3); Creatinine Clr Calc Pharmacy 97.8 ml/min; Est GFR (African American) 117.9 ml/min; Est GFR (Non-African American) 101.8 ml/min; Magnesium 1.7 mg/dl (1.7-2.4); Potassium 3.5 mmol/L (3.5-5.1)
[2022-10-22 20:24] LABS: Creatinine Urine Random 53.6 mg/dl
[2022-10-22] MEDS: GABAPENTIN 300 MG CAP PO SCH (21:06)
[2022-10-22] MEDS: ACETAMINOPHEN/HYDROcodone ELIX 15 ML/CUP PO PRN (22:11)
[2022-10-23] MEDS: ONDANSETRON INJ 2 MG/ML 2 ML VIAL IV SCH ×4 (02:08→23:30)
[2022-10-23] MEDS: CHECK fentaNYL PATCH PLACEMENT SCH ×4 (02:08→23:30)
[2022-10-23] MEDS: ACETAMINOPHEN/HYDROcodone ELIX 15 ML/CUP PO PRN ×2 (07:14→17:14)
[2022-10-23] MEDS: PROCHLORPERAZINE 5 MG in SYRINGE 4 ML IV PRN (07:14)
[2022-10-23 08:27] LABS: Hematocrit (blood only) 36.5 % (37.0-47.0); Hemoglobin 12.6 g/dl (12.0-16.0); Mean Corpuscular Hemoglobin 32.1 pg (25.0-34.0); Mean Corpuscular Hgb Conc 34.5 g/dL (32.0-36.0); Mean Corpuscular Volume 92.9 fL (80.0-100.0); Mean Platelet Volume 9.4 fL (9.4-12.4); Platelet Count 323 K/uL (130-400); RDW Coefficient of Variation 11.9 % (11.5-14.5); RDW Standard Deviation 40.6 fL (36.4-46.3); Red Blood Count 3.93 M/uL (4.20-5.40); White Blood Count 10.18 K/ul (4.8-10.8)
[2022-10-23 08:47] LABS: BUN Creatinine Ratio 6.8 (10-20); Calcium 7.7 mg/dl (8.6-10.3); Creatinine Clr Calc Pharmacy 117.6 ml/min; Est GFR (African American) 125.4 ml/min; Est GFR (Non-African American) 108.2 ml/min; Magnesium 1.8 mg/dl (1.7-2.4); Phosphorus 2.7 mg/dl (2.5-4.9)
[2022-10-23] MEDS: PANTOprazole 40 MG in SYRINGE 0 ML IV SCH (08:53)
[2022-10-23] MEDS: CITALOPRAM 40 MG TAB PO SCH (08:53)
[2022-10-23] MEDS: SUCRALFATE 1 GM/10 ML UDC PO SCH ×4 (08:54→20:27)
[2022-10-23] MEDS: LORATADINE 10 MG TAB PO SCH (08:54)
[2022-10-23] MEDS: NICOTINE 14 MG/24 HR PATCH TD SCH (08:54)
[2022-10-23] MEDS: GABAPENTIN 300 MG CAP PO SCH ×2 (08:55→20:26)
[2022-10-23] MEDS: FAMOTIDINE 20 MG TAB PO SCH ×2 (08:55→20:25)
--- NOTE | 2022-10-23 09:48 | Pain Management Consultation ---
Date of Consultation October 23, 2022 Assessment & Plan (1) Intractable nausea and vomiting: (2) Cancer related pain: (3) Stage IV adenocarcinoma of lung: (4) Bone metastasis: Plan Patient is pleased with her level of pain relief. Current medication regimen is fentanyl patch 12 mcg/hour, gabapentin 300 mg twice daily, Lortab elixir 10 mL every 6 hours, and IV Dilaudid if needed for breakthrough pain. Patient states that her nausea and vomiting has improved since switching the oxycodone to Lortab elixir. No changes will be made. No interventional procedures to offer the patient. We will sign off on the patient at this time. Please contact with any questions or concerns. History of Present Illness Attending Physician: Nitza Phillips MD History of Present Illness This is a 61-year-old female that does have a significant history of lung cancer with metastasis to the T8 and T9 along with pathological rib fractures along the left seventh and eighth ribs. She was experiencing significant nausea and vomiting that she attributes to oxycodone. Medications were changed to where she is now on fentanyl patch 12 mcg/hour, Lortab elixir 10 mL every 6 hours if needed, and has backup IV Dilaudid. Patient states that over the last 2 days her pain and nausea has significantly improved. She states that her appetite has significantly improved to where over the last 2 days she is eating more than she has in the last 2 weeks. She does have a 40 pound weight loss over the last several months. She denies any constipation, drowsiness, dizziness, lightheadedness, brain fog. Case discussed with Dr. Lily Spencer Allergies Allergy/AdvReac Type Severity Reaction Status Date / Time No Known Allergies Allergy Verified 10/21/22 13:43 Home Medications Medication Instructions Recorded Confirmed Type citalopram 40 mg tablet (Celexa) 40 mg PO QAM 12/19/19 10/21/22 History desloratadine 5 mg tablet 5 mg PO QAM 12/19/19 10/21/22 History (Clarinex) omeprazole 40 mg capsule,delayed 40 mg PO DAILYBB 08/26/22 10/21/22 History release umeclidinium 62.5 mcg-vilanterol 1 ea inhalation DAILY 30 days #60 08/31/22 10/21/22 Rx 25 mcg/actuation powdr for ea inhalation (Anoro Ellipta) oxycodone 5 mg tablet 5 mg PO Q4H PRN pain #30 tabs 09/23/22 10/21/22 Rx prochlorperazine maleate 5 mg 5 mg PO TID PRN nausea and 09/23/22 10/21/22 Rx tablet (Compazine) vomiting #30 tabs Potassium Tab 1 tab PO DIRECTED 10/17/22 10/21/22 History famotidine 20 mg tablet 20 mg PO BID #20 tabs 10/17/22 10/21/22 Rx sucralfate 100 mg/mL oral 10 ml PO QID #420 mL 10/17/22 10/21/22 Rx suspension (Carafate) Patient History Medical History Bone metastasis COPD with emphysema Goals of care, counseling/discussion Hypercalcemia LAD (lymphadenopathy), mediastinal Metastatic cancer Multiple pulmonary nodules Pathological fracture of rib of left side Stage IV adenocarcinoma of lung Surgical History H/O breast biopsy Right 01/03/2009 History of laminectomy left T7-8 endoscopic discectomy 02/01/[address] Holt [facility] History of tonsillectomy and adenoidectomy 1985 History of total hysterectomy 2007 Social History Smoking Status: Current every day smoker Tobacco Type: Cigarettes Second Hand Exposure: No; Do You Dip or Chew Tobacco: No; Hx Alcohol Use: No Hx Substance Use: No Preferred Language: Moroccan Communication Ability: Effective Application Security Engineer Required: No Beliefs That Will Affect Care: None Current Living Situation: Spouse Feels Safe at Home: Yes Assistive Devices: Glasses Physical Exam Physical Exam: GENERAL: This is a frail appearing 61 year old female that is eating her breakfast, in no acute distress. HEAD/FACE: Normocephalic and atraumatic. EYES: No drainage or conjunctival injection. ENT: Nose without bleeding or discharge. Oral mucosa moist. NECK: Full ROM without apparent pain. No swelling or masses noted. RESPIRATORY: Patient with unlabored breathing. No signs of respiratory distress. CHEST/AXILLA: Chest movement symmetrical. No deformities noted. ABDOMEN/GI: No distension BACK: Moves without difficulty SKIN: [place], warm and dry. No rash noted. MS/EXTREMITY: No swelling, no deformities. Moving extremities appropriately. NEURO: Alert and appears oriented. Speech is fluent. Cranial Nerves are grossly intact. PSYCH: Alert, pleasant, affect is calm
[2022-10-23] MEDS ORDERED: POTASSIUM CHLORIDE CRTAB 20 MEQ TABCR PO STA (10:36)
--- NOTE | 2022-10-23 15:16 | Hospitalist Progress Note ---
Date of Service October 23, 2022 Assessment & Plan (1) Stage IV adenocarcinoma of lung: (2) Acute hypokalemia: (3) Dehydration: (4) Hyponatremia: (5) Hypomagnesemia: Plan 61-year-old lady with PMH of recent diagnosis of stage IV adenocarcinoma of the lung with bone metastasis, pathological fracture of left rib, COPD, current tobacco use presented to the ED with complaint of persistent nausea, vomiting, dry heaves that has been worsening since last [address] [employer]GER and patient not able to eat any food or drink any fluids or take her meds lately. Patient reports left-sided lower chest pain which has been there since diagnosis of cancer, has been taking oxycodone at home but suboptimal pain control due to not being able to keep down the pain meds d/t vomiting. Patient follows Dr. Hallman as an outpatient, and has been made aware regarding no curative option for her current condition. Patient did undergo radiation early September, has been in follow-up with [facility] palliative medicine as an outpatient. She is being managed for the following: Stage IV adenocarcinoma of the lung: Dx with EBUS FNA in August bone mets; follows with Dr. Hallman; last appt 10/17 pulmonary mass with mediastinal and bilateral hilar lymphadenopathy Completed Radx 09/19 Follows with Palliative Medicine as OPT Dr. Hallman on 10/17 who has stated that with her current performance status it would be unlikely she would do well with chemotherapy. She has been informed by Dr. Hallman that there is no curative option for therapy and that pursuing an investigational option may lead to shortening her life further with the toxicities associated with treatment. Salvage therapy was not a consideration at that time due to her functional performance. Palliative care onboard, appreciate recs. Nausea and Vomiting: x5 days; unable to keep meds down; some hematemesis; suspect to be related to strain Mostly phlegm Received Benadryl and Phenergan in ED with relief Continues on Protonix Monitor Hb schedule Zofran to get ahead of nausea, cont IVF if w/ poor po intake, Compazine PRN per palliative It has been better lately. Hypokalemia/hypomag: Secondary to emesis Improved with replacement. Daily BMP, replaced kcl today. Hyponatremia: secondary to persistent nausea and vomiting in combination with poor PO intake and vomiting she is hypovolemic/dehydrated on exam Improving as pt's n/v are also improving. Cancer related pain: As OPT takes Oxycodone 5 mg PO Q 4 PRN; not been able to keep this down causing more uncontrolled pain, fentanyl patch in place. When PO intake is poor, for now considering low dose Fentanyl patch for long acting control and Dilaudid IV for breakthrough c/w gabapentin as this was helpful before and may help reduce the amount of narcotics needed. Pain Mx evaled 4/5, appreciate recs. Goals of care; counseling/discussion: Palliative medicine involved in care Disposition: PCP: Dr. Johnson Code: Full code VTE Prophylaxis: enoxaparin Dispo: likely karina. Admission and Anticipated Discharge Date Admission Date: October 21, 2022 Subjective Patient was seen and examined at bedside as a follow-up of nausea, vomiting, pain and electrolyte abnormalities in the background of recent diagnosis of his stage IV adenocarcinoma of the lung. Patient was lying semiupright in bed, on room air, NAD, reports no further nausea or vomiting since yesterday morning, is satisfied with the scheduled Zofran for the time being, reports being able to eat, reports moving bowels okay. Reports pain under control. Denies headache or dizziness or sore throat or cough or chest pain or palpitation. Physical Exam Physical Exam: GENERAL: Alert and oriented x3. NAD, on RA. HEENT: No pallor, no icterus. Pupils equal, round and reactive to light. Oral mucosa moist. NECK: No JVD, no neck masses. HEART: S1 and S2 heard. Regular rate and rhythm. No murmur, no gallop. RESPIRATORY SYSTEM: Normal AP diameter. No accessory muscle use. No wheezing, no crackles. Lt anterior lower chest tender. Improving ABDOMEN: Soft, bowel sounds present, nontender, no distention. CENTRAL NERVOUS SYSTEM: No facial droop. Speech is clear. Obeys simple commands. Moves extremities. EXTREMITIES: trace ble edema, no erythema seen. Results & Data Results & Data Vital Signs (Past 12 Hours) Vital Signs Temp Pulse Pulse Resp BP Pulse Ox O2 Del Method 10/23/22 11:40 36.5 C 85 16 102/71 100 Room Air 10/23/22 11:12 85 10/23/22 07:40 36.5 C 84 16 109/71 96 Room Air 10/23/22 04:00 82 10/23/22 03:33 36.6 C 84 20 103/75 98 Room Air
[2022-10-23] MEDS: ACETAMINOPHEN 325 MG TAB PO PRN (19:47)
[2022-10-23] MEDS: HYDROmorphone INJ 0.5 MG/0.5 ML SYR IV PRN (20:30)
[2022-10-23] MEDS: PANTOprazole 40 MG TAB PO SCH (21:00)
[2022-10-24 06:17] LABS: BUN Creatinine Ratio 9.4 (10-20); Calcium 7.7 mg/dl (8.6-10.3); Creatinine Clr Calc Pharmacy 97.6 ml/min; Est GFR (African American) 117.9 ml/min; Est GFR (Non-African American) 101.8 ml/min; Magnesium 1.6 mg/dl (1.7-2.4); Phosphorus 2.4 mg/dl (2.5-4.9); Potassium 3.2 mmol/L (3.5-5.1)
[2022-10-24] MEDS: POTASSIUM CHLORIDE CRTAB 20 MEQ TABCR PO SCH ×2 (08:44→12:50)
[2022-10-24] MEDS: GABAPENTIN 300 MG CAP PO SCH (08:45)
[2022-10-24] MEDS: CITALOPRAM 40 MG TAB PO SCH (08:45)
[2022-10-24] MEDS: SUCRALFATE 1 GM/10 ML UDC PO SCH ×2 (08:45→12:38)
[2022-10-24] MEDS: FAMOTIDINE 20 MG TAB PO SCH (08:45)
[2022-10-24] MEDS: LORATADINE 10 MG TAB PO SCH (08:45)
[2022-10-24] MEDS: fentaNYL 12 MCG/HR TDSY TD SCH (08:46)
[2022-10-24] MEDS: ACETAMINOPHEN/HYDROcodone ELIX 15 ML/CUP PO PRN (08:46)
[2022-10-24] MEDS: NICOTINE 14 MG/24 HR PATCH TD SCH (08:46)
[2022-10-24] MEDS: MAGNESIUM SULFATE / D5W 1 GM/100 ML BAG IV SCH ×3 (08:48→12:38)
[2022-10-24] MEDS: ONDANSETRON INJ 2 MG/ML 2 ML VIAL IV SCH (08:48)
[2022-10-24] MEDS: CHECK fentaNYL PATCH PLACEMENT SCH (08:48)
[2022-10-24] MEDS: PANTOprazole 40 MG TAB PO SCH (08:49)
[2022-10-24] MEDS ORDERED: ENOXAPARIN INJ 30 MG/0.3 ML SYR SQ SCH (09:00)
[2022-10-24] MEDS ORDERED: HYDROCODONE/ACETAMOPHEN 5/325MG TAB PO PRN (11:37)
[2022-10-24] MEDS ORDERED: POTASSIUM CHLORIDE CRTAB 20 MEQ TABCR PO SCH (13:00)
--- NOTE | 2022-10-24 13:00 | Palliative Care Progress Note ---
Date of Service October 24, 2022 Assessment & Plan (1) Intractable nausea and vomiting: Plan: Much improved with opioid rotation (2) Cancer related pain: Plan: Controlled with hydrocodone/APAP and fentanyl patch. She is also on adjuvant gabapentin. I did convert hydrocodone to tablet. She is no longer having difficulty tolerating pills and hydrocodone elixir may be difficult to find at [facility]. (3) Palliative care encounter: Plan: I met with Chiqui and her at bedside. They have spoken with Dr. Martinez previously and are meeting with him tomorrow. They are aware that there may not be any beneficial treatment options for her. Chiqui tells me that she is willing to try "one that might not work" but she is also aware of balance between benefit and impact on her quality of life. She tells me that she knows that she is going to and is actually grateful for the opportunity to finish unfinished business and talk with friends and family. The most important thing to her is to do that and have time to sit on her porch with her cat. She feels that life is good today and would like that to continue as long as possible. We did discuss option for hospice care. She was initially concerned about having to stay at home and cost. We talked about hospice support to help her live well which should be covered by her [employer] insurance. I assured her that being on hospice does not mean that she is imminently dying but would provide support and symptom management for her and her . They will consider this after their visit with Dr. Martinez tomorrow. We also discussed code status. Chiqui has been a full code. She tells me that she realizes that CPR could likely cause her harm and would not have the desired outcome. It does not mean that she could not choose other treatments but only applies to cardiopulmonary arrest. She does not want to have resuscitation and her supports this decision. Code status changed to DNR. She wants her to be her surrogate decision maker and if he were unable to do this, she has a friend that she would want to be alternate. They are working on creating healthcare POA documentation. Admission and Anticipated Discharge Date Admission Date: October 21, 2022 Subjective Feeling much better today. Denies nausea and vomiting with change to hydrocodone. Reports pain is controlled. She is sitting up in bed, talking with her . Review of Systems Review of Systems: ESAS Pain 1/3 Dyspnea 0/3 Nausea 0/3 Anxiety 0/3 Drowsiness 0/3 Physical Exam Constitutional: no acute distress ENMT: Mouth: oral mucous membranes not dry Respiratory: normal respiratory effort; no labored breathing Musculoskeletal: Extremities: extremities normal to inspection Neurologic: Speech / Cognition: normal cognition Psychiatric: A+Ox3, euthymic affect Results & Data Vital Signs (Past 12 Hours) Vital Signs Temp Pulse Pulse Resp BP Pulse Ox O2 Del Method 10/24/22 11:45 Room Air 10/24/22 11:06 98.4 F 82 16 97/63 L 99 Room Air 10/24/22 08:05 98.4 F 82 16 93/66 L 96 Room Air 10/24/22 04:00 97.7 F 88 18 106/74 98 Room Air 10/24/22 01:00 91 H PG Care Time/CCT Total # of Minutes Spent Total Time Spent: 43 Total Time Spent with Patient: Total time spent is greater than 50% in coordination of care (as documented) at patient's floor/unit and/or counseling patient:[id number] goals of care, hospice, code status, symptom management, surrogate decision maker Coding Level of Care Code 24801 SUB INP/OBS CARE 2/35MIN Diagnoses Intractable nausea and vomiting R11.2 Cancer related pain G89.3 Palliative care encounter Z51.5
[2022-10-24] MEDS ORDERED: MAGNESIUM OXIDE 400 MG TAB PO SCH (13:35)
--- NOTE | 2022-10-24 14:42 | Discharge Summary ---
Date of Service October 24, 2022 Admission HPI Per Admitting Provider Ms. Hamilton is a 61-year-old female that presents to the ED with nausea, vomiting, and weakness. 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 Patient was recently admitted 08/27 to 08/31 for uncontrolled pain related to her disease process and she underwent endoscopic decompressive paravertebral block for pain control. An EBUS FNA was performed to diagnose preliminary primary. Additional pulmonary mass with mediastinal and bilateral hilar lymphadenopathy was identified as well. She has completed radiation therapy to T-spine and left chest wall on 09/19/22. Last admission patient was seen by palliative medicine and per review of that note it appears that the family was quite overwhelmed with the new diagnosis and results and having overall goals of care conversation was limited at that time; stating that she will take this 1 day at a time with her goal being pain management and pursuing treatment. Patient has been seen by Dr. Hallman on 10/17 who has stated that with her current performance status it would be unlikely she would do well with chemotherapy. She has been informed by Dr. Hallman that there is no curative option for therapy and that pursuing an investigational option may lead to shortening her life further with the toxicities associated with treatment. As of that conversation, salvage therapy was not a consideration at that time due to her functional performance. Patient has met with [facility] as an outpatient on 09/30 and she advised she was looking forward to her upcoming appointment with Dr. Hallman on 10/17 to discuss treatment options. Patient was stating at that time she continued to want to be aggressive with her care. Today, I met with Ms. Hamilton alone in her hospital room. Her was not present. In speaking with Ms. Hamilton today she said that she has entered the 'acceptance' phase of her illness. She said that she enjoys watching tv, goingon her porch outside and does not feel that she has anything left undone in her life. She said that she has done a lot of thinking about kids with cancer and recognizes that she has had 62 years of a good life. I did validate that it is still ok to feel sad about her own diagnosis. She said she has felt too weak to do anything and has led to her being depressed. We had a lengthy conversation regarding code status and she is not sure she would want resuscitated but would like to discuss further with her . We did have discussion regarding feeding tubes and how that would fit into her goals overall, again, wishing to have further conversation with her ; which is understandable and supported. She said that she has not been able to take any of her Oxycodone over the past few days due to her persistent nausea. We did discuss long acting approach to her pain control as she is not opioid naive. She was receptive to a fentanyl patch; while overall, oral long acting would be preferred. Additional PMH includes allergic rhinitis, hypertension, and GERD. Patient reports she is still smoking but has not been able to the past few days. Patient will be admitted for further evaluation and management. Please see A/P for further details Admission Exam Per Admitting Provider Neuro: AAOx4, PERRLA, no aphagia, memory changes, CNII-XII grossly intact HEENT: head normocephalic, moist mucus membranes CV: S1/S2, (-) M/G/R, (-) edema, cap refill < 3 seconds Resp: Lungs CTA in all conner. On RA GI: Abdomen S/NT/ND, Ax4 bowel sounds, (-) CVA tenderness Musculoskeletal: 5/5 B/L UE strength, 5/5 B/L LE strength. No gait disturbance Skin: (-) rashes , (-) erythema. Psych: euthymic mood Principal Diagnosis Cancer related nausea, vomiting, pain Electrolytes abnormalities History of recently diagnosed stage IV adenocarcinoma of the lung Goals of care discussion Discharge Exam GENERAL: Alert and oriented x3. NAD, on RA. HEENT: No pallor, no icterus. Pupils equal, round and reactive to light. Oral mucosa moist. NECK: No JVD, no neck masses. HEART: S1 and S2 heard. Regular rate and rhythm. No murmur, no gallop. RESPIRATORY SYSTEM: Normal AP diameter. No accessory muscle use. No wheezing, no crackles. Lt anterior lower chest tender. Improving ABDOMEN: Soft, bowel sounds present, nontender, no distention. CENTRAL NERVOUS SYSTEM: No facial droop. Speech is clear. Obeys simple commands. Moves extremities. EXTREMITIES: trace ble edema, no erythema seen. Discharge Data Allergies Allergy/AdvReac Type Severity Reaction Status Date / Time No Known Allergies Allergy Verified 10/21/22 13:43 Consultations 10/21/22 13:34 ED Decision to Admit Stat 10/21/22 14:29 Consult Palliative Care Routine 10/22/22 07:50 Consult Pain Management Routine Hospital Course (1) Stage IV adenocarcinoma of lung: (2) Acute hypokalemia: (3) Dehydration: (4) Hyponatremia: (5) Hypomagnesemia: Plan 61-year-old lady with PMH of recent diagnosis of stage IV adenocarcinoma of the lung with bone metastasis, pathological fracture of left rib, COPD, current tobacco use presented to the ED with complaint of persistent nausea, vomiting, dry heaves that has been worsening since last 4 to 5 days [employer] and patient not able to eat any food or drink any fluids or take her meds lately. Patient reports left-sided lower chest pain which has been there since diagnosis of cancer, has been taking oxycodone at home but suboptimal pain control due to not being able to keep down the pain meds d/t vomiting. Patient follows Dr. Hallman as an outpatient, and has been made aware regarding no curative option for her current condition. Patient did undergo radiation early September, has been in follow-up with [facility] palliative medicine as an outpatient. She was managed f or the following: Stage IV adenocarcinoma of the lung: Dx with EBUS FNA in August bone mets; follows with Dr. Hallman; last appt 10/17 pulmonary mass with mediastinal and bilateral hilar lymphadenopathy Completed Radx 09/19 Follows with Palliative Medicine as OPT Dr. Hallman on 10/17 who has stated that with her current performance status it would be unlikely she would do well with chemotherapy. She has been informed by Dr. Hallman that there is no curative option for therapy and that pursuing an investigational option may lead to shortening her life further with the toxicities associated with treatment. Salvage therapy was not a consideration at that time due to her functional performance. Palliative care onboard, appreciate recs - CODE STATUS changed to DNR/DNI. Nausea and Vomiting: severe protein calorie malnutrition:pt has about 40 lb wt loss over last several months. x5 days; unable to keep meds down; some hematemesis; suspect to be related to strain Mostly phlegm Continue scheduled Zofran, as needed prochlorperazine, omeprazole and famotidine as prior. Nausea and vomiting has been better, patient reports being able to tolerate p.o. intake better. Hypokalemia/hypomag: Secondary to emesis Improved with replacement. Patient to get labs with PCP office within a week time to monitor progress. Hyponatremia: secondary to persistent nausea and vomiting in combination with poor PO intake and vomiting she is hypovolemic/dehydrated on exam Improving as pt's n/v are also improving. Cancer related pain: As OPT takes Oxycodone 5 mg PO Q 4 PRN; not been able to keep this down causing more uncontrolled pain, fentanyl patch in place. When PO intake is poor, for now considering low dose Fentanyl patch for long acting control and Dilaudid IV for breakthrough c/w gabapentin as this was helpful before and may help reduce the amount of narcotics needed. Pain Mx evaled 10/23, appreciate recs. Appreciate palliative care recommendation. Goals of care; counseling/discussion: Palliative medicine involved in care Disposition: PCP: Dr. Johnson Code: Full code VTE Prophylaxis: enoxaparin Dispo: likely karina. Patient being discharged to home with following instruction at the point of d ischarge: Follow-up with your primary care physician within a week time and likely you will need labs CBC/CMP/magnesium/phosphorus. Follow-up with your oncologist as prior or within a week time which ever is earlier. You will be discharged on scheduled Zofran for your nausea and vomiting. Also you will be discharged on pain medication for few days worth, if worsening pain and ongoing pain then you will have to reach out to either your cancer doctor or your primary care doctor for further pain management evaluation/prescription. While on pain medication you can use scheduled [id number]-svm-[id number] laxatives to avoid constipation. Recommend quitting smoking, nicotine patch has been ordered. Take your medications as prescribed. Home Health Attestation I certify that this patient is under my care and that I, or a physicians expanded function dental assistant working with me, had a face to-face encounter that meets the home health ytfr-ci-wajq encounter requirements with this patient. The encounter with the patient was in whole, or in part, for the following medical condition, which is the primary reason for home health care (list m edical condition): I certify that, based on my findings, the following services are medically necessary home health services: My clinical findings support the need for the above services because: Further, I certify that my clinical findings support that this patient is homebound (i.e. absences from home require considerable and taxing effort and are for medical reasons or evangelical services or infrequently or of short duration when for other reasons) because: Certification for Home Health Services: Based on the above findings, I certify that this patient is confined to the home and needs intermittent senior living care, physical therapy and/or speech t herapy or continues to need occupational therapy. The patient is under my care, and I have initiated the establishment of the plan of care. This patient will be followed by a physician who will periodically review the plan of care. Total Time Total Time Spent Total Time Spent (In Minutes): 45 Discharge Plan Discharge Items Patient Disposition: Home - Self-Care Reason For Visit: WEAKNESS/NAUSEA AND VOMITING Discharge Diagnosis: Cancer related nausea, vomiting, pain Electrolytes abnormalities History of recently diagnosed stage IV adenocarcinoma of the lung Goals of care discussion Activity: Resume your previous activity Non-emergency contact: Primary Care Provider Call non-emergency contact if: you have any medication questions Follow-up/Referrals: Gabino Johnson MD [Primary Care Provider] - (Date & Time 10/29/2022 11:20 AM Provider Soham Lee MD [facility] ) Diet: Regular and Low Sodium (2gm) Diet Texture: Easy to Chew Addtl Attending Provider Instructions: Follow-up with your primary care physician within a week time and likely you will need labs CBC/CMP/magnesium/phosphorus. Follow-up with your oncologist as prior or within a week time which ever is earlier. You will be discharged on scheduled Zofran for your nausea and vomiting. Also you will be discharged on pain medication for few days worth, if worsening pain and ongoing pain then you will have to reach out to either your cancer doctor or your primary care doctor for further pain management evaluation/prescription. While on pain medication you can use scheduled [id number]-rvilhaz laxatives to avoid constipation. Recommend quitting smoking, nicotine patch has been ordered. Take your medications as prescribed. Pending Studies at Discharge: No Stand-Alone Forms: My [facility] [place], Smoking Cessation Medications and DC Order Prescriptions: New nicotine 7 mg/24 hr Patch 24 Hour 14 mg transdermal QAM Qty: 28 0RF fentanyl 12 mcg/hr Patch 72 Hour 12 mcg transdermal Q3D@0900 Qty: 5 0RF gabapentin 300 mg Capsule 300 mg PO BID Qty: 60 0RF hydrocodone-acetaminophen 5-325 mg Tablet 1 tab PO Q6H PRN (Reason: severe pain (scale score 7-10)) Qty: 20 0RF magnesium oxide 400 mg (241.3 mg magnesium) Tablet 400 mg PO BID 15 Days Qty: 30 0RF ondansetron 4 mg tablet,disintegrating 4 mg PO Q8H Qty: 90 0RF potassium chloride 20 mEq tablet extended release 20 meq PO BID Qty: 30 0RF Continued prochlorperazine maleate [Compazine] 5 mg tablet 5 mg PO TID PRN (Reason: nausea and vomiting) Qty: 30 1RF citalopram [Celexa] 40 mg tablet 40 mg PO QAM desloratadine [Clarinex] 5 mg tablet 5 mg PO QAM omeprazole 40 mg capsule,delayed release(DR/EC) 40 mg PO DAILYBB Anoro Ellipta 62.5-25 mcg/actuation Blister With Device 1 ea inhalation DAILY 30 Days Qty: 60 2RF sucralfate [Carafate] 100 mg/mL suspension 10 ml PO QID Qty: 420 0RF Rx Instructions: swish in mouth and swallow; use after food/drink: May substitute tablets as a slurry. famotidine 20 mg tablet 20 mg PO BID Qty: 20 0RF Discontinued oxycodone 5 mg tablet 5 mg PO Q4H PRN (Reason: pain) Qty: 30 0RF Potassium Tab 1 tab PO DIRECTED Discharge Orders: Discharge Order (Routine); Ordered 10/24/22 Ordered By: Nitza Phillips Admission Data Admit Date/Time: 10/21/22 13:40 Attending Provider: Nitza Phillips Admit Provider: Nitza Phillips Primary Care Provider: Gabino Johnson Other Providers: Nitza Phillips ; Radha Sánchez ; Leo Sullivan
== END 2022-10-24 16:52 | disposition home or self-care (01) | DRG 181 ==
LOC: ED 11:27 → SUATTDRO 13:40 → 2N 13:40